=== PATIENT | female | born 1950 | race Caucasian/White ===

== ENCOUNTER → 2020-02-03 09:32 | Outpatient (BNVA) | payer MEDICARE, OTHER, SELFPAY | PROVIDERS: PCP Internal Medicine; Visit Provider Surgery | DX: D05.12 Intraductal carcinoma in situ of left breast (principal); Z79.811 Long term (current) use of aromatase inhibitors; Z92.3 Personal history of irradiation | CPT/HCPCS: 99213 ==

== ENCOUNTER → 2020-02-09 07:44 | Outpatient (BNV) | payer MEDICARE, OTHER, SELFPAY | PROVIDERS: PCP Internal Medicine; Visit Provider Internal Medicine Medical Oncology | DX: D05.12 Intraductal carcinoma in situ of left breast (principal); M85.80 Other specified disorders of bone density and structure, unspecified site | CPT/HCPCS: 99204; 99213; 99214 ==

== ENCOUNTER 2020-05-03 09:13 | Outpatient (REF) | payer MEDICARE, OTHER, SELFPAY ==
--- NOTE | 2020-05-03 09:17 | MM_ITS ---
EXAMINATION: MM DIAGNOSTIC DIGITAL BREAST TOMOSYNTHESIS, BILATERAL CLINICAL INFORMATION: Due for yearly. Left lumpectomy 08/01/2018. COMPARISON: Mammography: 04/30/2019, 08/01/2018, 07/10/2018, 07/03/2018, 06/14/2017 TECHNIQUE: Digital breast tomosynthesis is performed in both the craniocaudal and mediolateral oblique views along with computer-aided detection (CAD). Synthesized 2D images are generated from the tomosynthesis. Additional magnification left CC and magnification left ML views are obtained. FINDINGS: The breasts are heterogeneously dense, which may obscure small masses (ACR BI-RADS breast composition Category c). Findings fibronodular parenchymal pattern is similar to prior studies. There is minor scarring mid upper outer left breast similar to prior postoperative exam. Neither breast shows interval mass or architectural abnormality or abnormal calcifications. There is biopsy clip marker right breast lower inner quadrant. No significant changes in the breast. Results are provided to the patient at time of visit by the technologist. MM/MM tomosynthesis diagnostic BI IMPRESSION: No significant changes from prior studies. ASSESSMENT: BI-RADS 2: Benign RECOMMENDATION: Annual bilateral mammography. This patient's information was entered into a reminder system with a target due date for their next mammogram.
== END 2020-05-03 09:14 | disposition home or self-care (01) ==
LOC: HO.MAMMO 09:13
PROVIDERS: PCP Internal Medicine; Visit Provider Surgery
DX: D05.12 Intraductal carcinoma in situ of left breast (principal)
CPT/HCPCS: 77062; 77066

== ENCOUNTER 2020-10-05 06:28 | Day surgery (SDC) | payer MEDICARE, OTHER, SELFPAY ==
[2020-09-28 15:15] VITALS: BMI 36.6
--- NOTE | 2020-10-04 09:08 | HO.ANESPROP2 ---
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 (Acute) Past Medical History Medical History Arthritis of both knees Asthma Ductal carcinoma in situ of left breast Hx of skin cancer, basal cell Hypertension Family History Family History Father History of melanoma Mother History of colon cancer Paternal Grandfather History of diabetes mellitus Maternal Grandfather History of diabetes mellitus Surgical History Surgical History History of basal cell carcinoma (BCC) excision (~2009) History of breast biopsy (~2016) History of colonoscopy History of laparoscopic appendectomy (~1996) History of lumpectomy of left breast (~08/01/18) History of sinus surgery (~1989) Social History Social History Are you a primary care management associate to a significant other at home: No Do you presently have visiting nurse or other home services: No Alcohol intake: current Alcohol intake frequency: holidays/special occasions only Patient Tobacco Use Status: Never used Tobacco Use of substances other than those prescribed or required for medical reasons: No Have you been hit, kicked, punched, or otherwise hurt by someone within the past year? If so, by whom?: No Are you DNR?: No Advance Directives: No Advance Directives Information Provided: No Advance Directives on File: No Recently lost weight without trying: No How much weight loss: 14-23 pounds Nutrition Risks: No Nutritional Risk Meds Allergies Allergy/AdvReac Type Severity Reaction Status Date / Time codeine [CODEINE] Allergy Unknown PROJECTILE Verified 10/05/20 07:26 VOMITING latex [LATEX] Allergy Unknown RASH Verified 10/05/20 07:26 SEASONAL ALLERGIES Allergy Unknown WHEEZING, Uncoded 10/05/20 07:26 NASAL CONGESTION Home Medications Medication Instructions Recorded Confirmed Last Taken Type cholecalciferol (vitamin D3) 50 50 mcg PO DAILY 02/03/20 09/28/20 Unknown History mcg (2,000 unit) capsule flaxseed oil 1,000 mg capsule 1,000 mg PO DAILY 02/03/20 09/28/20 Unknown History fluticasone propionate 220 1 puff INHALATION BID 02/03/20 09/28/20 Unknown History mcg/actuation HFA aerosol inhaler ipratropium 20 mcg-albuterol 100 2 puff INHALATION BID 02/03/20 09/28/20 Unknown History mcg/actuation mist for inhalation potassium iodide 65 mg tablet 0.22 mg PO DAILY 02/03/20 09/28/20 Unknown History vitamin E 200 unit capsule 400 unit PO DAILY cap 02/03/20 09/28/20 Unknown History Osteo Bi-Flex Triple Strength 2 tab PO DAILY 02/09/20 09/28/20 Unknown History acetaminophen 1,300 mg PO BEDTIME 02/09/20 09/28/20 Unknown History multivitamin 1 tab PO DAILY 02/09/20 09/28/20 Unknown History cetirizine 10 mg PO DAILY 09/28/20 09/28/20 Unknown History lisinopril 1 tab PO DAILY 09/28/20 09/28/20 Unknown History turmeric root extract 1,000 mg PO DAILY 09/28/20 09/28/20 Unknown History Exam Exam Date and Time: October 04, 2020 0908 Height,Weight and Vital Signs: Height 5 ft 5 in Weight 99.79 kg Assessment and Plan Assessment Anesthesia Assessment: Chart Reviewed
[2020-10-05 06:48] VITALS: BMI 31.6
[2020-10-05 06:52] VITALS: BP 149/85; PULSE 79; RESP 18; TEMP 36.1; O2SAT 96
[2020-10-05] MEDS: Lactated Ringers 1,000 ML 100 ML IVCONT (07:02)
--- NOTE | 2020-10-05 07:16 | P.CONAN_ITS ---
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) Past Medical History Medical History Arthritis of both knees Asthma Ductal carcinoma in situ of left breast Hx of skin cancer, basal cell Hypertension Family History Family History Father History of melanoma Mother History of colon cancer Paternal Grandfather History of diabetes mellitus Maternal Grandfather History of diabetes mellitus Surgical History Surgical History History of basal cell carcinoma (BCC) excision (~2009) History of breast biopsy (~2016) History of colonoscopy History of laparoscopic appendectomy (~1996) History of lumpectomy of left breast (~08/01/18) History of sinus surgery (~1989) Social History Social History Are you a primary insurance healthcare consultant to a significant other at home: No Do you presently have visiting nurse or other home services: No Alcohol intake: current Alcohol intake frequency: holidays/special occasions only Patient Tobacco Use Status: Never used Tobacco Use of substances other than those prescribed or required for medical reasons: No Have you been hit, kicked, punched, or otherwise hurt by someone within the past year? If so, by whom?: No Are you DNR?: No Advance Directives: No Advance Directives Information Provided: No Advance Directives on File: No Recently lost weight without trying: No How much weight loss: 14-23 pounds Nutrition Risks: No Nutritional Risk Meds Allergies Allergy/AdvReac Type Severity Reaction Status Date / Time codeine [CODEINE] Allergy Unknown PROJECTILE Unverified 09/28/20 15:20 VOMITING latex [LATEX] Allergy Unknown RASH Unverified 09/28/20 15:20 SEASONAL ALLERGIES Allergy Unknown WHEEZING, Uncoded 09/28/20 15:20 NASAL CONGESTION Active Medications: Current Medications Generic Name Dose Route Start Last Admin Trade Name Freq PRN Reason Stop Dose Admin Albuterol Sulfate 2.5 mg 10/05/20 05:53 Albuterol Sulfate (0.083%) 2.5 Mg/3 Ml Vial.Neb INHALE ONCE PRN Shortness of Breath/Wheezing Lactated Ringer's 1,000 mls @ 100 mls/hr 10/05/20 06:00 10/05/20 07:02 Lr IVCONT 100 mls/hr .Q10H OLIVIA Administration Home Medications Medication Instructions Recorded Confirmed Last Taken Type cholecalciferol (vitamin D3) 50 50 mcg PO DAILY 02/03/20 09/28/20 Unknown History mcg (2,000 unit) capsule flaxseed oil 1,000 mg capsule 1,000 mg PO DAILY 02/03/20 09/28/20 Unknown History fluticasone propionate 220 1 puff INHALATION BID 02/03/20 09/28/20 Unknown History mcg/actuation HFA aerosol inhaler ipratropium 20 mcg-albuterol 100 2 puff INHALATION BID 02/03/20 09/28/20 Unknown History mcg/actuation mist for inhalation potassium iodide 65 mg tablet 0.22 mg PO DAILY 02/03/20 09/28/20 Unknown History vitamin E 200 unit capsule 400 unit PO DAILY cap 02/03/20 09/28/20 Unknown History Osteo Bi-Flex Triple Strength 2 tab PO DAILY 02/09/20 09/28/20 Unknown History acetaminophen 1,300 mg PO BEDTIME 02/09/20 09/28/20 Unknown History multivitamin 1 tab PO DAILY 02/09/20 09/28/20 Unknown History cetirizine 10 mg PO DAILY 09/28/20 09/28/20 Unknown History lisinopril 1 tab PO DAILY 09/28/20 09/28/20 Unknown History turmeric root extract 1,000 mg PO DAILY 09/28/20 09/28/20 Unknown History Exam Exam Date and Time: October 05, 2020 0716 Height,Weight and Vital Signs: Height 5 ft 5 in Weight 86.183 kg Last Vital Signs Temp 97.0 F 10/05/20 06:52 Pulse 79 10/05/20 06:52 Resp 18 10/05/20 06:52 BP 149/85 H 10/05/20 06:52 Pulse Ox 96 10/05/20 06:52 Airway Mallampati Class: II TM Dist: >3cm Neck ROM: Full Heart: RRR Lungs: CTa
--- NOTE | 2020-10-05 07:22 | MHC.SHP ---
Pre-Procedural Eval Section B Chief Complaint: screening Details of Present Illness: See H&P no changes Relevant Family History (Specify if Yes): Yes Relevant Social History: None Present Medications: see Short Stay Collaborative assessment Medical History: No relevant PMH History of Previous Operations: No relevant previous surgery Allergies: Allergies Allergy/AdvReac Type Severity Reaction Status Date / Time codeine [CODEINE] Allergy Unknown PROJECTILE Unverified 09/28/20 15:20 VOMITING latex [LATEX] Allergy Unknown RASH Unverified 09/28/20 15:20 SEASONAL ALLERGIES Allergy Unknown WHEEZING, Uncoded 09/28/20 15:20 NASAL CONGESTION Review of Systems Sugical H&P ROS: Negative: Constitution, Cardiovascular, Respiratory, Neurological, Psychiatric, Hem-Onc, Allergic/Immunologic, Gastrointestinal, Genitourinary, Musculoskeletal, Integumentary, Endocrine and Eyes/Ears/Nose/Throat Exam Surgical H&P Exam: Normal: HEENT, Normal: Heart, Normal: Lungs, Normal: Extremities, Normal: Abdomen, Normal: Skin and Normal: Neurological Plan Diagnosis/Plan: Unchanged I have reviewed the history and physical and performed a pertinent physical examination on my patient. No changes have occurred unless specified.
--- NOTE | 2020-10-05 07:52 | P.BOP_ITS ---
Brief Operative Note Date of Service: 10/05/20 Pre-op diagnosis: screening Post-op diagnosis: same Procedure: colonosocpy Surgeon: Ritchie Mcknight Was an Director Of Physical Security used for this Procedure?: No Estimated blood loss (mL): 0 Pathology: none sent Condition: stable Disposition: PACU
[2020-10-05 07:55] VITALS: BP 86/47; PULSE 64; RESP 16; TEMP 36; O2SAT 99
[2020-10-05 08:02] VITALS: BP 107/66
[2020-10-05 08:08] VITALS: BP 115/70; PULSE 65; RESP 15; TEMP 36; O2SAT 97
--- NOTE | 2020-10-05 08:33 | OP_ITS ---
SURGEON: Ritchie Mcknight MD INDICATIONS: Colon cancer screening and family history of colon cancer. PREOPERATIVE DIAGNOSIS: POSTOPERATIVE DIAGNOSIS: PROCEDURE PERFORMED: Colonoscopy to the terminal ileum. ESTIMATED BLOOD LOSS: COMPLICATIONS: ANESTHESIA: Monitored anesthesia care. ASSISTANTS: SPECIMENS: DESCRIPTION OF PROCEDURE: History and physical performed. The risks and benefits of the procedure were explained to the patient, and informed consent was obtained. The patient was placed in the left lateral decubitus position. A digital rectal exam was performed and it was found to be normal. The Olympus pediatric video colonoscope was introduced into the rectum and advanced to the cecum without difficulty. The cecum was identified by transillumination, palpation, and identification of ileocecal valve. Examination was performed. The scope was removed. She tolerated the tolerated the procedure well and returned to the recovery area in stable condition. FINDINGS: The terminal ileum was examined and it appeared normal. The visualized colonic mucosa was within normal limits without evidence of masses or ulcers. No polyps were identified. The quality of the prep was good. Retroflexed examination showed some hypertrophic anal papillae. IMPRESSION: Normal colonoscopy. RECOMMENDATIONS: 1. Follow up as needed. 2. Repeat colonoscopy is recommended in 5 years because of family history. MD FOZIA Tucker/HAYES / [id number]
--- NOTE | 2020-10-05 11:51 | HO.POSTANES ---
Post Anesthesia Evaluation Post Anesthesia Evaluation Vital Signs: Vital Signs Temp Pulse Resp BP Pulse Ox 10/05/20 08:08 96.8 F 65 15 115/70 97 10/05/20 08:02 107/66 10/05/20 07:55 96.8 F 64 16 86/47 L 99 10/05/20 06:52 97.0 F 79 18 149/85 H 96 Anesthesia: Monitored Mental Status: Awake Pain Control: Satisfactory Nausea/Vomiting: None Hydration: Adequate
== END 2020-10-05 08:40 | disposition home or self-care (01) ==
PROVIDERS: PCP Internal Medicine; Visit Provider Internal Medicine Gastroenterology
PROC: 0DJD8ZZ Inspection of Lower Intestinal Tract, Via Natural or Artificial Opening Endoscopic (ICD-10-PCS; CPT 45378; principal; 2020-10-05 07:30)
DX: Z12.11 Encounter for screening for malignant neoplasm of colon (principal); Z80.0 Family history of malignant neoplasm of digestive organs; K62.89 Other specified diseases of anus and rectum; I10 Essential (primary) hypertension; J45.909 Unspecified asthma, uncomplicated; D05.12 Intraductal carcinoma in situ of left breast; Z79.811 Long term (current) use of aromatase inhibitors; Z79.899 Other long term (current) drug therapy; Z79.51 Long term (current) use of inhaled steroids; Z85.828 Personal history of other malignant neoplasm of skin
CPT/HCPCS: G0105

== ENCOUNTER → 2021-02-11 11:05 | Outpatient (BNVA) | payer MEDICARE, OTHER, SELFPAY | PROVIDERS: PCP Internal Medicine; Referring Provider Internal Medicine; Visit Provider Surgery | DX: D05.12 Intraductal carcinoma in situ of left breast (principal) | CPT/HCPCS: 99212 ==

== ENCOUNTER 2021-05-04 09:14 | Outpatient (REF) | payer MEDICARE, OTHER, SELFPAY ==
--- NOTE | ~2021-05-04 | MM_ITS ---
EXAMINATION: BONE DENSITOMETRY CLINICAL INDICATION: Osteopenia. On letrozole. COMPARISON: Previous BD dated 01/14/2019 and baseline BD dated 05/11/2006. TECHNIQUE: Using a Hepre[employer] DXA System (software version: 13.1) manufactured by [employer], dual-energy x-ray absorptiometry was performed of the lumbar spine and left hip. The images are of good technical quality. Summary results are attached. FINDINGS: AP SPINE L1-L4: Current: BMD 1.240 g/cm2, Z-score 2.1, T-score 0.5, normal, 3.0% decrease from previous, 1.6% decrease from baseline (<5% change is not significant). Prior: BMD 1.279 g/cm2. Baseline: BMD 1.260 g/cm2. LEFT FEMUR, NECK: Current: BMD 0.745 g/cm2, Z-score -0.5, T-score -2.1, osteopenia. Prior: BMD 0.797 g/cm2. Baseline: BMD 0.882 g/cm2. LEFT FEMUR, TOTAL: Current: BMD 0.906 g/cm2, Z-score 0.5, T-score -0.8, normal, 5.5% decrease from previous, 12.0% decrease from baseline (<5% change is not significant). Prior: BMD 0.959 g/cm2. Baseline: BMD 1.030 g/cm2. IDENTIFIED RISK FACTORS: Menopause. HISTORY OF FRACTURE: None listed. MEDICATIONS: Calcium supplements or multivitamin, vitamin D, ERT/SERMS. MM/XR DEXA axial skeleton IMPRESSION: 1. DIAGNOSIS: Osteopenia based on the lowest T-score value of -2.1 in the femoral neck applying World Health Organization criteria. 2. 10-YEAR FRACTURE RISK PREDICTION, FRAX: Major osteoporotic fracture (clinical spine, forearm, hip or shoulder) 12.3%. Hip fracture 2.4%. 3. Treatment Recommendations: NOF guidelines recommend consideration for treatment in postmenopausal women and men age 50 and older presenting with the following: -A hip or vertebral (clinical or morphometric) fracture. -T-score less than or equal to -2.5 at the femoral neck or spine after appropriate evaluation to exclude secondary causes. -Low bone mass at the hip or spine and a 10-year fracture probability by FRAX of greater than or equal to 3% for hip fracture or greater than or equal to 20% for major osteoporotic fracture based on the [place] adapted WHO algorithm. 4. Other Recommendations: All treatment decisions require clinical judgment and consideration of individual patient factors, including patient preferences, comorbidities, previous drug use, risk factors not captured in the FRAX model (e.g. frailty, falls, vitamin D deficiency, increased bone turnover, interval significant decline in bone density) and possible under or overestimation of fracture risk by FRAX. Additional medical evaluation for secondary cause of low bone mineral density may be appropriate. FUTURE SCAN RECOMMENDATION: People with diagnosed cases of osteoporosis or at high risk for fracture should have regular bone mineral density tests. For patients eligible for Medicare, routine testing is allowed once every 2 years. The testing frequency can be increased to one year for patients who have rapidly progressing disease, those who are receiving or discontinuing medical therapy to restore bone mass, or have additional risk factors.
--- NOTE | ~2021-05-04 | MM_ITS ---
EXAMINATION: MM DIAGNOSTIC DIGITAL BREAST TOMOSYNTHESIS, BILATERAL CLINICAL INFORMATION: Left lumpectomy 08/01/2018 complex nodule (circumscribed nests of carcinoma; ADH; Flat epithelial atypia; PASH; clear margins). Prior benign right stereotactic biopsy 06/01/2016. Due for yearly. COMPARISON: Mammography: 05/03/2020, 04/30/2019, 08/01/2018, 07/10/2018, 07/03/2018, 06/14/2017 TECHNIQUE: Digital breast tomosynthesis is performed in both the craniocaudal and mediolateral oblique views along with computer-aided detection (CAD). Synthesized 2D images are generated from the tomosynthesis. Additional left magnification CC and left magnification ML views are obtained. FINDINGS: The breasts are heterogeneously dense, which may obscure small masses (ACR BI-RADS breast composition Category c). There are no significant masses, abnormal calcifications, or other abnormalities. There is fine fibronodular parenchymal pattern similar to prior studies. Minor scarring mid upper outer left breast is consistent with the lumpectomy. There is biopsy clip marker again seen mid lower inner right breast. There are no significant changes. Results are provided to the patient at time of visit by the technologist. MM/MM tomosynthesis diagnostic BI IMPRESSION: No mammographic evidence of malignancy. Post therapy changes left breast. ASSESSMENT: BI-RADS 2: Benign RECOMMENDATION: Annual bilateral mammography. This patient's information was entered into a reminder system with a target due date for their next mammogram.
== END 2021-05-04 09:15 | disposition home or self-care (01) ==
LOC: HO.MAMMO 09:14
PROVIDERS: Absent Provider Surgery; PCP Internal Medicine; Visit Provider Internal Medicine Medical Oncology
DX: Z13.820 Encounter for screening for osteoporosis (principal); M85.80 Other specified disorders of bone density and structure, unspecified site; Z78.0 Asymptomatic menopausal state; D05.12 Intraductal carcinoma in situ of left breast; Z79.811 Long term (current) use of aromatase inhibitors; Z79.899 Other long term (current) drug therapy
CPT/HCPCS: 77062; 77066; 77080

== ENCOUNTER 2021-08-22 06:43 | Outpatient (REF) | payer MEDICARE, OTHER, SELFPAY ==
[2021-08-22 07:48] LABS: Cholesterol 202 mg/dL; HDL Cholesterol 72 mg/dL; LDL Cholesterol Calculated 117 mg/dl; Triglycerides 68 mg/dL
== END 2021-08-22 06:44 | disposition home or self-care (01) ==
LOC: HO.LAB 06:43
PROVIDERS: PCP Internal Medicine; Visit Provider Internal Medicine
DX: I10 Essential (primary) hypertension (principal); J45.909 Unspecified asthma, uncomplicated; R25.2 Cramp and spasm
CPT/HCPCS: 36415; 80061

== ENCOUNTER 2022-01-03 09:19 | Emergency (ER) | payer MEDICARE, OTHER, SELFPAY ==
--- NOTE | ~2022-01-03 | XR_ITS ---
EXAMINATION: XR FOOT, RIGHT CLINICAL INFORMATION: Twisted foot with pain COMPARISON: 11/01/2008 TECHNIQUE: AP, lateral, and oblique views of the right foot. FINDINGS: Osseous alignment is anatomic. There is subtle transverse linear lucency at the base of the fifth metatarsal, suspicious for nondisplaced fracture and adjacent soft tissue swelling. Remaining osseous structures appear intact. Plantar calcaneal spur is noted. XR/XR foot RT 2V IMPRESSION: Nondisplaced transverse fracture at the base of the fifth metatarsal.
[2022-01-03 09:25] VITALS: BP 170/80; PULSE 71; RESP 18; TEMP 36.6; O2SAT 99; BMI 23.1
--- NOTE | 2022-01-03 09:48 | ED.LOWEXIN ---
HPI - Extremity Injury (Lower) General Chief Complaint: Extremity Injury, Lower Stated Complaint: fall 01/03/22 Time Seen by Provider: 01/03/22 09:43 Source: patient Mode of arrival: ambulatory Limitations: no limitations History of Present Illness HPI Narrative: 71 yo female with history of fracture to the right 5th metatarsal in 2008 treated nonoperatively presents with right foot pain after an injury this morning. Patient reports she was sitting down and her right foot fell asleep. When she stood up she twisted the right foot. Since then she has had pain and pain with weight bearing to the right foot. Sensation is now normal. Related Data Home Medications Medication Instructions Recorded Confirmed cholecalciferol (vitamin D3) 50 50 mcg PO DAILY 02/03/20 08/08/21 mcg (2,000 unit) capsule flaxseed oil 1,000 mg capsule 1,000 mg PO DAILY 02/03/20 08/08/21 fluticasone propionate 220 1 puff inhalation BID 02/03/20 08/08/21 mcg/actuation HFA aerosol inhaler (Flovent HFA) ipratropium 20 mcg-albuterol 100 2 puff inhalation BID 02/03/20 08/08/21 mcg/actuation mist for inhalation (Combivent Respimat) potassium iodide 65 mg tablet 0.22 mg PO DAILY 02/03/20 08/08/21 vitamin E 200 unit capsule 400 unit PO DAILY 02/03/20 08/08/21 Osteo Bi-Flex Triple Strength 2 tab PO DAILY 02/09/20 08/08/21 acetaminophen 1,300 mg PO BEDTIME 02/09/20 08/08/21 multivitamin 1 tab PO DAILY 02/09/20 08/08/21 cetirizine 10 mg tablet 10 mg PO DAILY 09/28/20 08/08/21 lisinopril 5 mg tablet 1 tab PO DAILY 09/28/20 08/08/21 turmeric root extract 500 mg 1,000 mg PO DAILY 09/28/20 08/08/21 capsule Previous Rx's Medication Instructions Recorded letrozole 2.5 mg tablet 2.5 mg PO DAILY #90 tabs 10/31/21 off loading boot (Aircast off #1 ea 01/03/22 loading boot) Allergies Allergy/AdvReac Type Severity Reaction Status Date / Time codeine [CODEINE] Allergy Unknown PROJECTILE Verified 08/08/21 09:09 VOMITING latex [LATEX] Allergy Unknown RASH Verified 08/08/21 09:09 SEASONAL ALLERGIES Allergy Unknown WHEEZING, Uncoded 08/08/21 09:09 NASAL CONGESTION Review of Systems Review of Systems: Yes all other systems are reviewed and are negative Constitutional: Constitutional: Reports no additional constitutional complaints, Denies fever(s) and Denies weakness ENT: Reports system reviewed and no additional complaints, except as documented Cardiovascular: Cardiovascular: Reports no additional cardiovascular complaints and Denies acrocyanosis Respiratory: Respiratory: Reports no additional respiratory complaints and Denies cough Gastrointestinal: Gastrointestinal: Reports no additional gastrointestinal complaints, Denies nausea and Denies vomiting Genitourinary: Genitourinary: Reports no additional female genitourinary complaints Musculoskeletal: Musculoskeletal: Reports no additional musculoskeletal complaints, Reports arthralgias, Reports joint swelling, Denies numbness and Denies tingling Integumentary/Breasts: Skin/Breast: Reports system reviewed and no additional complaints, except as docu and Denies rash Neurologic: Reports system reviewed and no additional complaints, except as documented, Denies numbness, Denies tingling and Denies weakness [facility] Past Medical History Attestation statement: The following information was validated with the patient. Source: old records reviewed and nursing notes reviewed Medical History Arthritis of both knees Asthma Ductal carcinoma in situ of left breast Hx of skin cancer, basal cell Hypertension Surgical History History of basal cell carcinoma (BCC) excision (~2009) History of breast biopsy (~2016) History of colonoscopy History of laparoscopic appendectomy (~1996) History of lumpectomy of left breast (~08/01/18) History of sinus surgery (~1989) Family History Family History Father History of melanoma Mother History of colon cancer Paternal Grandfather History of diabetes mellitus Maternal Grandfather History of diabetes mellitus Social History Social History Household Members: Family Housing: House Are you a primary veterinarian laboratory animal care to a significant other at home: No Do you presently have visiting nurse or other home services: No Alcohol intake: current Alcohol intake frequency: holidays/special occasions only Patient Tobacco Use Status: Never used Tobacco Advance Directives: Yes Advance Directives Information Provided: No Advance Directives on File: No service: Yes Current occupational status: employed and retired Physical Exam Vital Signs: Vital Signs: Last Vital Signs Temp 98 F 01/03/22 09:25 Pulse 71 01/03/22 09:25 Resp 18 01/03/22 09:25 BP 170/80 H 01/03/22 09:25 Pulse Ox 99 01/03/22 09:25 O2 Del Method 01/03/22 09:25 BMI result Body Mass Index 23.1 Const: General: cooperative, healthy appearing, comfortable and no acute distress Orientation/consciousness: patient oriented x3 Limitations: no limitations HEENT: Head: Yes normal to inspection Ears: hearing grossly normal bilaterally General nose exam: Normal external nose present Face and sinus: Yes normal facial exam Mouth: Normal oral and palatal mucosa present Throat: Yes posterior oropharynx normal Eyes: General: appearance normal, both eyes and all related structures Pupils: Equal, round and reactive pupils present Neck: Neck: Yes normal visual inspection Chest: Chest palpation & inspection: normal inspection of the chest Resp: Effort & Inspection: normal respiratory effort Auscultation: clear to auscultation bilaterally Cardio: Rate: regular rate Rhythm: regular rhythm Peripheral pulses: Peripheral pulses 2+ throughout GI: Inspection: Yes normal to inspection Palpation (GI): Soft to palpation and nontender Auscultation: normal bowel sounds Back/Spine/Pelvis: Thoracic/Lumbar Spine: thoracic and lumbar spine normal to inspection Skin: General skin exam: no rashes or lesions noted Neuro: General: patient oriented x3, no focal motor deficits and normal sensation to monofilament Cranial nerves: Yes Equal, round and reactive pupils present Cognition (Neuro): normal cognition Gait exam (Neuro): Normal gait present Motor exam (neuro): 5/5 motor strength present throughout Extrem: Other: Swelling/ecchymosis over the base of the right 5th metatarsal FROM NV intact distally Ankle normal Course Course Course Narrative: X-rays show IMPRESSION: Nondisplaced transverse fracture at the base of the fifth metatarsal. Spoke to orthopedics distance education coordinator (Dulce Maria RODRIGUEZ). Recommended ortho walking boot with WBAT. No orthopedic boot available in ED. Will give RX. Reviewed RICE. Reviewed worrisome signs.symptoms with patient and when to return to ED. Comfortable with discharge home. MDM - Extremity Injury (Lower) MDM Narrative Medical decision making narrative: Right foot pain after injury. Will check x-rays Medical Records Attestation: I reviewed the patient's medical records. Lab Data Attestation: I reviewed the patient's lab results. Imaging Data foot xray: Attestation: I personally reviewed and interpreted this imaging study as follows: Radiologist's impression: Launch?Image [address] [address] XRay Report Signed Patient: Taryn Tompkins MR#: [id number] : 1950 Acct:[id number] Age/Sex: 71 / F ADM Date: 01/03/22 Loc: HO.ED Attending Dr: Ordering Physician: Vinnie Chino MD Date of Service: 01/03/22 Procedure(s): XR foot RT 2V Accession Number(s): [id number] cc: Vinnie Chino MD~ EXAMINATION: XR FOOT, RIGHT CLINICAL INFORMATION: Twisted foot with pain? COMPARISON: 11/01/2008? TECHNIQUE: AP, lateral, and oblique views of the right foot. FINDINGS: Osseous alignment is anatomic. There is subtle transverse linear lucency at the base of the fifth metatarsal, suspicious for nondisplaced fracture and adjacent soft tissue swelling. Remaining osseous structures appear intact. Plantar calcaneal spur is noted.? XR/XR foot RT 2V IMPRESSION: Nondisplaced transverse fracture at the base of the fifth metatarsal. Discharge Plan Discharge Clinical Impression: Foot fracture, right Patient Disposition: Home, Self-Care Instructions: Foot Fracture in Adults (ED) Additional Instructions: Walking boot and weight bearing as tolerated Elevate, ice Take motrin or tylenol as needed for pain Call orthopedics for a follow-up appointment Prescriptions: New (DME) Aircast off loading boot Kit See Rx Instructions .Route Qty: 1 0RF Rx Instructions: As directed No Action letrozole 2.5 mg Tablet 2.5 mg PO DAILY Qty: 90 3RF Osteo Bi-Flex Triple Strength 2 tab PO DAILY acetaminophen 650 mg tablet 1,300 mg PO BEDTIME multivitamin Tablet 1 tab PO DAILY cetirizine 10 mg Tablet 10 mg PO DAILY lisinopril 5 mg tablet 1 tab PO DAILY turmeric root extract 500 mg Capsule 1,000 mg PO DAILY potassium iodide 65 mg tablet 0.22 mg PO DAILY Flovent HFA 220 mcg/actuation HFA aerosol inhaler 1 puff inhalation BID Combivent Respimat 20-100 mcg/actuation mist 2 puff inhalation BID cholecalciferol (vitamin D3) 50 mcg (2,000 unit) capsule 50 mcg PO DAILY vitamin E 200 unit capsule 400 unit PO DAILY flaxseed oil 1,000 mg capsule 1,000 mg PO DAILY Rx Instructions: administer with a meal Referrals: [facility] [place] [facility] [Provider Group] - 2 weeks Interventions: ED Discharge Assessment Last Done: 01/03/22 10:50 Discharge Date/Time: 01/03/22 10:51
== END 2022-01-03 10:51 | disposition home or self-care (01) ==
PROVIDERS: Emergency Provider Emergency Medicine; PCP Internal Medicine
DX: S92.901A Unspecified fracture of right foot, initial encounter for closed fracture (principal); X58.XXXA Exposure to other specified factors, initial encounter; Y93.9 Activity, unspecified; Y92.9 Unspecified place or not applicable; Y99.9 Unspecified external cause status; Z79.899 Other long term (current) drug therapy
CPT/HCPCS: 73620; 99283

== ENCOUNTER 2022-01-16 09:56 | Outpatient (REF) | payer MEDICARE, OTHER, SELFPAY ==
--- NOTE | ~2022-01-16 | XR_ITS ---
EXAMINATION: XR FOOT, RIGHT CLINICAL INFORMATION: Fracture COMPARISON: Previous x-ray 01/03/2022 TECHNIQUE: AP, lateral, and oblique views of the right foot. FINDINGS: There is a nondisplaced fracture of the base of the fifth metatarsal bone. This appears unchanged from 01/03/2022 exam. No other fracture is seen. Joint spaces are normal. There is a plantar calcaneal spur. XR/XR foot RT min 3V IMPRESSION: No change in the fracture of the base of the fifth metatarsal bone.
== END 2022-01-16 09:57 | disposition home or self-care (01) ==
LOC: HO.XRAY 09:56
PROVIDERS: PCP Internal Medicine; Visit Provider Internal Medicine
DX: S92.901D Unspecified fracture of right foot, subsequent encounter for fracture with routine healing (principal)
CPT/HCPCS: 73630

== ENCOUNTER → 2022-02-07 08:51 | Outpatient (BNVA) | payer MEDICARE, OTHER, SELFPAY | PROVIDERS: PCP Internal Medicine; Visit Provider Surgery | DX: D05.12 Intraductal carcinoma in situ of left breast (principal) | CPT/HCPCS: 99212 ==

== ENCOUNTER 2022-05-05 08:09 | Outpatient (REF) | payer MEDICARE, OTHER, SELFPAY ==
--- NOTE | ~2022-05-05 | MM_ITS ---
EXAMINATION: MM SCREENING DIGITAL BREAST TOMOSYNTHESIS, BILATERAL CLINICAL INFORMATION: Screening. Asymptomatic. Due for yearly. Left lumpectomy 08/01/2018 complex nodule (circumscribed nests of carcinoma; ADH; Flat epithelial atypia; PASH; clear margins). Prior benign right stereotactic biopsy 06/01/2016. COMPARISON: Mammography: 05/04/2021, 05/03/2020, 04/30/2019, 08/01/2018, 07/10/2018, 07/03/2018 TECHNIQUE: Digital breast tomosynthesis is performed in both the craniocaudal and mediolateral oblique views along with computer-aided detection (CAD). Synthesized 2D images are generated from the tomosynthesis. FINDINGS: The breasts are heterogeneously dense, which may obscure small masses (ACR BI-RADS breast composition Category c). There is a fine fibronodular parenchymal pattern similar to prior exams with no developing density or interval mass or architectural abnormality. The axilla and skin contours are unremarkable. There are scattered punctate and coarse benign calcifications again seen in both breasts. The left CC view shows tight group of calcifications central outer breast 6.5 cm from nipple. Calcifications are not clearly visualized on the MLO view. Given the prior history, patient will be recalled for additional characterization with magnification views. MM/MM tomosynthesis screening BI IMPRESSION: Left: -Punctate tightly grouped calcifications central outer breast on CC view, possibly dispersed on MLO view. Right: -No mammographic evidence of malignancy. ASSESSMENT: BI-RADS 0: Incomplete - Need Additional Imaging Evaluation RECOMMENDATION: 1. Additional views of the left breast (magnification CC, magnification ML). 2. Radiology department staff will contact the patient for additional imaging. This patient's information was entered into a reminder system with a target due date for their next mammogram.
== END 2022-05-05 08:10 | disposition home or self-care (01) ==
LOC: HO.MAMMO 08:09
PROVIDERS: PCP Internal Medicine; Visit Provider Internal Medicine
DX: Z12.31 Encounter for screening mammogram for malignant neoplasm of breast (principal)
CPT/HCPCS: 77063; 77067

== ENCOUNTER 2022-05-11 08:44 | Outpatient (REF) | payer MEDICARE, OTHER, SELFPAY ==
--- NOTE | ~2022-05-11 | MM_ITS ---
EXAMINATION: MM DIAGNOSTIC DIGITAL MAMMOGRAPHY, LEFT CLINICAL INFORMATION: Recall from screening for fine calcifications CC view central outer left breast mid depth. Prior left lumpectomy 08/01/2018 for a complex nodule (circumscribed nests of carcinoma; ADH; Flat epithelial atypia; PASH; clear margins). Status post radiation left breast. Prior benign contralateral right stereotactic biopsy 06/01/2016 (benign breast tissue with focally proliferative fibrocystic changes and microcalcifications). COMPARISON: Mammography: 05/05/2022, 05/04/2021, 05/03/2020, 04/30/2019 TECHNIQUE: Digital mammography is performed in the following views: Magnification CC, magnification ML x3. FINDINGS: The breasts are heterogeneously dense, which may obscure small masses (ACR BI-RADS breast composition Category c). The additional views demonstrate fine round calcifications upper outer left breast slightly increased in number from prior studies. No pleomorphic types. No layering milk of calcium. Results are discussed with the patient at time of visit. Management options discussed with patient. Given the past medical history, stereotactic sampling is suggested to confirm benignity. Results and recommendation called to medical assistant float (Margot) for Dr. Mattson on 05/11/2022. MM/MM added views LT IMPRESSION: Findings calcifications upper outer left breast slightly increased. Given the past medical history left breast cancer, stereotactic sampling is suggested to confirm benignity. ASSESSMENT: BI-RADS 4: Suspicious (subcategory 4A: Low suspicion for malignancy) RECOMMENDATION: Stereotactic sampling left breast calcifications. This patient's information was entered into a reminder system with a target due date for their next mammogram.
== END 2022-05-11 08:45 | disposition home or self-care (01) ==
LOC: HO.MAMMO 08:44
PROVIDERS: PCP Internal Medicine; Visit Provider Surgery
DX: R92.8 Other abnormal and inconclusive findings on diagnostic imaging of breast (principal)
CPT/HCPCS: 77065

== ENCOUNTER 2022-05-16 08:57 | Outpatient (REF) | payer MEDICARE, OTHER, SELFPAY ==
--- NOTE | ~2022-05-16 | MM_ITS ---
EXAMINATION: STEREOTACTIC TOMOSYNTHESIS-GUIDED VACUUM-ASSISTED BREAST BIOPSY, LEFT SPECIMEN RADIOGRAPH, LEFT POST PROCEDURE DIGITAL MAMMOGRAM, LEFT CLINICAL INFORMATION: Calcifications upper outer left breast. Prior history left lumpectomy 08/01/2018 complex nodule (circumscribed nests of carcinoma; ADH; Flat epithelial atypia; PASH; clear margins). COMPARISON: Mammography 05/05/2022, 05/11/2022. TECHNIQUE/PROCEDURE: Informed consent was obtained from the patient after discussion of the benefits, risks, and alternatives to biopsy today. Patient appeared to understand. Gave opportunity for questions. Patient signed consent form. BIOPSY TABLE: [employer] Affirm Prone Biopsy System. LESION: Fine calcifications mid upper left breast. LOCAL ANESTHESIA: 10 mL carbonated 1% lidocaine; 10 mL 1% lidocaine with epinephrine. DERMATOTOMY: Single skin mio dermatotomy performed. NEEDLE: LumiFoldiva 9-gauge vacuum assisted core biopsy device. APPROACH: Craniocaudal. TARGETING: Combination of digital breast tomosynthesis and stereotactic digital mammography used for targeting. CORES: 7. CLIP: [employer] T-shaped marker. SPECIMEN RADIOGRAPH: Specimen radiograph is taken in separate room using digital mammography. The index calcifications are in the excised cores. There are over 10 calcifications in the cores. POST PROCEDURE UNILATERAL DIGITAL MAMMOGRAM: The post biopsy mammogram is performed in separate room using separate digital mammography equipment from the biopsy procedure. CC and ML views are obtained. The breasts are heterogeneously dense, which may obscure small masses (breast composition category: c). The clip marker is in position. No gross hematoma. The patient tolerated the procedure well. No immediate complications. Home instructions reviewed with the patient. Final pathology results are pending. MM/MM stereotactic biopsy LT IMPRESSION: 1. Digital tomosynthesis-guided core biopsy left breast with clip placement. 2. Specimen radiograph taken and post procedure mammogram. There is satisfactory positioning of the biopsy clip. 3. Final pathology results pending. An addendum report will be issued.
[2022-05-16] MEDS: Sodium Bicarbonate 8.4% 50 MEQ/50 ML VIAL SUBCUT (10:53)
[2022-05-16] MEDS: Lidocaine HCl 1 % 20 ML VIAL 10 ML SUBCUT (10:54)
[2022-05-16] MEDS: Lidocaine HCl 1% PF/Epi 1:200,000 30 ML VIAL 10 ML SUBCUT (10:58)
== END 2022-05-16 08:58 | disposition home or self-care (01) ==
LOC: HO.MAMMO 08:57
PROVIDERS: PCP Internal Medicine; Visit Provider Surgery
DX: R92.8 Other abnormal and inconclusive findings on diagnostic imaging of breast (principal); D05.12 Intraductal carcinoma in situ of left breast
CPT/HCPCS: 19081; 88305; 99212; A4648

== ENCOUNTER 2022-11-17 07:47 | Outpatient (REF) | payer MEDICARE, OTHER, SELFPAY ==
--- NOTE | ~2022-11-17 | MM_ITS ---
EXAMINATION: MM DIAGNOSTIC DIGITAL BREAST TOMOSYNTHESIS, LEFT CLINICAL INFORMATION: Status post benign stereotactic biopsy of calcifications in the upper outer quadrant of the left breast. Patient's since for recommended short interval follow-up with magnification imaging of the left breast. The patient has a history of previous left breast cancer treated with lumpectomy. COMPARISON: Mammography: This study is compared to prior exams dating back to 2019. TECHNIQUE: Digital breast tomosynthesis is performed in both the craniocaudal and mediolateral oblique views along with computer-aided detection (CAD). Synthesized 2D images are generated from the tomosynthesis. FINDINGS: There are scattered areas of fibroglandular density (ACR BI-RADS breast composition Category b). There are no significant masses, abnormal calcifications, or other abnormalities. There is a tissue marker in the upper outer quadrant of the left breast. Few, benign, punctate calcifications remain in close proximity to the biopsy tissue marker after prior benign biopsy. Results are provided to the patient at time of visit by the technologist. MM/MM tomosynthesis diagnostic LT IMPRESSION: Status post benign stereotactic biopsy upper outer quadrant left breast. No suspicious findings in the left breast at the current time. ASSESSMENT: BI-RADS BI-RADS 2 - Benign Findings RECOMMENDATION: 1 year F/U The patient's next mammogram should be bilateral screening study in April 2023. This patient's information was entered into a reminder system with a target due date for their next mammogram.
== END 2022-11-17 07:48 | disposition home or self-care (01) ==
LOC: HO.MAMMO 07:47
PROVIDERS: PCP Internal Medicine; Visit Provider Surgery
DX: R92.8 Other abnormal and inconclusive findings on diagnostic imaging of breast (principal)
CPT/HCPCS: 77061; 77065

== ENCOUNTER → 2022-11-17 08:00 | Outpatient (BNV) | payer MEDICARE, OTHER, SELFPAY | PROVIDERS: PCP Internal Medicine; Visit Provider Radiology Diagnostic Radiology | DX: R92.1 Mammographic calcification found on diagnostic imaging of breast (principal) | CPT/HCPCS: 77065 ==

== ENCOUNTER 2023-02-06 08:48 | Outpatient (AMB) | payer MEDICARE, OTHER, SELFPAY ==
--- NOTE | 2023-02-06 08:49 | A.OFFVIS_ITS ---
Intake Vital Signs 3 02/06/23 08:56 Height 5 ft 4 in Weight 136 lb 10.986 oz BMI 23.5 BP 128/88 Blood Pressure Location Lt brachial Position Sitting Pulse 69 Pulse Oximetry (%) 99 Intake Visit Reasons: Yearly Breast Exam Intake Note: Patient is seen in office for yearly breast exam. Patient c/o: denies any concerns or changes since last visit Grocery Manager Required: No [employer]: [employer] Present Accompanied by: Self / Same As Patient Allergies codeine [CODEINE] Allergy (Unknown, Verified 02/06/23 08:55) PROJECTILE VOMITING latex [LATEX] Allergy (Unknown, Verified 02/06/23 08:55) RASH SEASONAL ALLERGIES Allergy (Unknown, Uncoded 02/06/23 08:55) WHEEZING, NASAL CONGESTION Medication List - Last Reconciled 02/06/23 by Macario Silverio MD [acetaminophen 1,300 mg PO BEDTIME] cetirizine 10 mg PO DAILY cholecalciferol (vitamin D3) 50 mcg PO DAILY flaxseed oil 1,000 mg PO DAILY fluticasone propionate 220 mcg/actuation (Flovent HFA) 1 puff inhalation BID ipratropium-albuterol 20-100 mcg/actuation (Combivent Respimat) 2 puffs inhalation BID letrozole 2.5 mg PO DAILY lisinopril 1 tab PO DAILY multivitamin 1 tab PO DAILY [Osteo Bi-Flex Triple Strength 2 tabs PO DAILY] potassium iodide 0.22 mg PO DAILY turmeric root extract 1,000 mg PO DAILY vitamin E 400 units PO DAILY HPI HPI Comments 2 History of Present Illness0 Details 72-year-old female patient returning for a follow-up examination after left breast cancer and a recent low suspicion mammogram which was repeated on 11/17/2022.? She has a previous history of left breast ductal carcinoma in situ and is status post left breast lumpectomy with needle localization on 08/01/2018.? 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 She tolerated the procedure well and subsequently underwent radiation therapy completed on 10/25/2018.? She continues on letrozole under direction of Dr. Hart.? She was diagnosed with osteopenia and started on Prolia. Her mammogram dated 05/05/2022 with follow-up images of 05/11/2022 revealed calcifications in the upper-outer left breast which seemed slightly increased from the previous mammogram last year. Given her previous history of DCIS, stereotactic sampling is suggested. She underwent stereotactic guided core biopsy on 05/16/2022. This revealed benign breast tissue with microcalcifications. No atypia or malignancy was identified. Six-month follow-up mammogram of the left breast was obtained on 11/17/2022 and revealed post biopsy changes but no significant sebaceous findings in the left breast (BI-RADS 2). She will be due for her annual mammogram which is scheduled for 05/11/2023. She feels well and denies any new breast symptoms. [facility] Medical History Arthritis of both knees Hx of skin cancer, basal cell Ductal carcinoma in situ of left breast Hypertension Asthma Surgical History History of lumpectomy of left breast (~08/01/18) History of breast biopsy (~2016) History of basal cell carcinoma (BCC) excision (~2009) History of colonoscopy History of laparoscopic appendectomy (~1996) History of sinus surgery (~1989) Family History Father History of melanoma Mother History of colon cancer Paternal Grandfather History of diabetes mellitus Maternal Grandfather History of diabetes mellitus Social History Household Members: Family Housing: House Are you a primary caregivers homecare to a significant other at home: No Do you presently have visiting nurse or other home services: No Alcohol intake: current Alcohol intake frequency: holidays/special occasions only Patient Tobacco Use Status: Never used Tobacco service: Yes Current occupational status: employed and retired Review of Systems Const Denies chills, Denies fever(s), Denies headache(s) and Denies poor appetite ENT Denies dizziness and Denies headache(s) Card Denies chest pain, Denies rapid heart rate, Denies palpitations and Denies slow heart rate Resp Denies chest congestion, Denies cough, Denies pain on inspiration and Denies wheezing Musc Denies numbness Skin/Breast Denies breast swelling, Denies breast pain, Denies breast mass, Denies change in pigmentation, Denies erythema and Denies rash Neuro Denies dizziness, Denies headache(s) and Denies numbness Endo Denies palpitations Efraín/Lymph Denies easy bleeding, Denies easy bruising and Denies lymphadenopathy Aller/Immun Denies wheezing Physical Exam Vital Signs: Last Vital Signs Pulse 69 02/06/23 08:56 BP 128/88 02/06/23 08:56 Pulse Ox 99 02/06/23 08:56 BMI result Body Mass Index 23.5 Const General: healthy appearing and well developed Nutritional Appearance: well nourished Orientation/consciousness: patient oriented x3 Limitations: no limitations HEENT Head: Yes normocephalic and Yes atraumatic Ears: hearing grossly normal bilaterally Eyes Sclerae: sclerae normal Neck Neck: Yes no lymphadenopathy, Yes trachea midline, Yes supple and Yes no JVD Chest Other: Left breast: No skin change, no nipple retraction, no nipple discharge, no palpable mass, no enlarged lymph nodes. Incision in the upper outer quadrant is clean, dry, and intact. There is mild thickening of the breast tissue from previous surgery and radiation therapy but no suspicious palpable mass. This is unchanged from her previous examination. Right breast: No skin change, no nipple retraction, no nipple discharge, no palpable mass, no enlarged lymph nodes Chest/axillae images: 2 1. Resp Effort & Inspection: normal respiratory effort, no cough and no respiratory distress Skin Other: Warm, dry, no rash Neuro General: patient oriented x3 Extrem General: Yes no clubbing, cyanosis or edema Assessment & Plan Assessment & Plan (1) Abnormal mammogram of left breast: Code(s): R92.8 - Other abnormal and inconclusive findings on diagnostic imaging of breast Plan 72-year-old female patient with a prior history of DCIS, status post left breast lumpectomy followed by radiation therapy and letrozole. Mammogram in April 2022 revealed a cluster of calcifications felt to be low suspicion for malignancy BI-RADS 4A and stereotactic guided core biopsy was recommended. This was performed on 05/16/2022 and revealed benign breast tissue, microcalcifications but no atypia or malignancy. She underwent a six-month follow-up mammogram on 11/17/2022 which again revealed no new suspicious findings (BI-RADS 2). She is scheduled for a bilateral mammogram on 05/11/2023. She will return for follow-up examination in 1 year, sooner p.r.n.. Coding Level of Care Code Est Pt Level 3 (47930) Diagnoses Abnormal mammogram of left breast R92.8
[2023-02-06 08:56] VITALS: BP 128/88; PULSE 69; O2SAT 99; BMI 23.5
== END 2023-02-06 09:11 | disposition home or self-care (01) ==
PROVIDERS: PCP Internal Medicine; Visit Provider Surgery
DX: R92.8 Other abnormal and inconclusive findings on diagnostic imaging of breast (principal)
CPT/HCPCS: 99213

== ENCOUNTER → 2023-02-06 08:48 | Outpatient (BNVA) | payer MEDICARE, OTHER, SELFPAY | PROVIDERS: PCP Internal Medicine; Visit Provider Surgery | DX: R92.8 Other abnormal and inconclusive findings on diagnostic imaging of breast (principal) | CPT/HCPCS: 99212 ==

== ENCOUNTER 2023-05-11 08:13 | Outpatient (REF) | payer MEDICARE, OTHER, SELFPAY ==
--- NOTE | ~2023-05-11 | MM_ITS ---
EXAMINATION: MM SCREENING DIGITAL BREAST TOMOSYNTHESIS, BILATERAL CLINICAL INFORMATION: Screening. Asymptomatic. History of treated left breast cancer. COMPARISON: Mammography: This study is compared with prior exams dating back to 2018. TECHNIQUE: Digital breast tomosynthesis is performed in both the craniocaudal and mediolateral oblique views along with computer-aided detection (CAD). Synthesized 2D images are generated from the tomosynthesis. FINDINGS: The breasts are heterogeneously dense, which may obscure small masses (ACR BI-RADS breast composition Category c). There are no significant masses, abnormal calcifications, or other abnormalities. There are tissue markers in each breast from prior benign percutaneous biopsies. There are architectural changes lateral aspect the left breast from prior excision. MM/MM tomosynthesis screening BI IMPRESSION: No mammographic evidence of malignancy. ASSESSMENT: BI-RADS BI-RADS 2 - Benign Findings RECOMMENDATION: Routine annual mammography screening. 1 year F/U This examination should not preclude the clinical evaluation of a suspicious palpable abnormality. This patient's information was entered into a reminder system with a target due date for their next mammogram.
--- NOTE | ~2023-05-11 | MM_ITS ---
EXAMINATION: BONE DENSITOMETRY CLINICAL INDICATION: Osteoporosis. COMPARISON: Previous BD dated 05/04/2021 and baseline BD dated 05/11/2006. TECHNIQUE: Using a [employer] DXA System (software version: 13.1) manufactured by [employer], dual-energy x-ray absorptiometry was performed of the lumbar spine and left hip. The images are of good technical quality. Summary results are attached. FINDINGS: LEFT FEMUR, NECK: Current: BMD 0.802 g/cm2, Z-score 0.1, T-score -1.7, osteopenia. Prior: BMD 0.745 g/cm2. Baseline: BMD 0.882 g/cm2. LEFT FEMUR, TOTAL: Current: BMD 0.884 g/cm2, Z-score 0.6, T-score -1.0, normal, 2.4% decrease from previous, 14.2% decrease from baseline (<5% change is not significant). Prior: BMD 0.906 g/cm2. Baseline: BMD 1.030 g/cm2. AP SPINE L1-L2 (excluding L3 and L4): The data of L1-L4 has been changed to exclude the L3 and L4 vertebral bodies, because degenerative sclerosis at these levels may cause overestimation of lumbar spine density. Current: BMD 1.189 g/cm2, Z-score 2.0, T-score 0.2, normal, 4.8% increase from previous, 2.1% decrease from baseline (<5% change is not significant). Prior: BMD 1.135 g/cm2. Baseline: BMD 1.215 g/cm2. IDENTIFIED RISK FACTORS: Height loss, menopause. HISTORY OF FRACTURE: None listed. MEDICATIONS: Calcium, vitamin D, Prolia. MM/XR DEXA axial skeleton IMPRESSION: 1. DIAGNOSIS: Osteopenia based on the lowest T-score value of -1.7 in the femoral neck applying World Health Organization criteria. 2. 10-YEAR FRACTURE RISK PREDICTION, FRAX: Not performed in this patient on estrogen or bone building treatments. 3. Treatment Recommendations: NOF guidelines recommend consideration for treatment in postmenopausal women and men age 50 and older presenting with the following: -A hip or vertebral (clinical or morphometric) fracture. -T-score less than or equal to -2.5 at the femoral neck or spine after appropriate evaluation to exclude secondary causes. -Low bone mass at the hip or spine and a 10-year fracture probability by FRAX of greater than or equal to 3% for hip fracture or greater than or equal to 20% for major osteoporotic fracture based on the [place] adapted WHO algorithm. 4. Other Recommendations: All treatment decisions require clinical judgment and consideration of individual patient factors, including patient preferences, comorbidities, previous drug use, risk factors not captured in the FRAX model (e.g. frailty, falls, vitamin D deficiency, increased bone turnover, interval significant decline in bone density) and possible under or overestimation of fracture risk by FRAX. Additional medical evaluation for secondary cause of low bone mineral density may be appropriate. FUTURE SCAN RECOMMENDATION: People with diagnosed cases of osteoporosis or at high risk for fracture should have regular bone mineral density tests. For patients eligible for Medicare, routine testing is allowed once every 2 years. The testing frequency can be increased to one year for patients who have rapidly progressing disease, those who are receiving or discontinuing medical therapy to restore bone mass, or have additional risk factors.
== END 2023-05-11 08:14 | disposition home or self-care (01) ==
LOC: HO.MAMMO 08:13
PROVIDERS: PCP Internal Medicine; Visit Provider Internal Medicine
DX: Z12.31 Encounter for screening mammogram for malignant neoplasm of breast (principal); Z13.820 Encounter for screening for osteoporosis; Z78.0 Asymptomatic menopausal state; M81.0 Age-related osteoporosis without current pathological fracture
CPT/HCPCS: 77063; 77067; 77080

== ENCOUNTER → 2023-05-11 08:45 | Outpatient (BNV) | payer MEDICARE, OTHER, SELFPAY | PROVIDERS: PCP Internal Medicine; Visit Provider Radiology Diagnostic Radiology | DX: Z12.31 Encounter for screening mammogram for malignant neoplasm of breast (principal) | CPT/HCPCS: 77063; 77067 ==

== ENCOUNTER 2023-07-24 10:26 | Outpatient (REF) | payer MEDICARE, OTHER, SELFPAY ==
--- NOTE | ~2023-07-24 | US_ITS ---
EXAMINATION: US VENOUS ULTRASOUND WITH DOPPLER LOWER EXTREMITY, LEFT CLINICAL INFORMATION: Left calf pain COMPARISON: None available. TECHNIQUE: Ultrasound of the deep veins is performed from the hip to the calf with compression sonography and color and pulse Doppler assessment. Spectral analysis with color-flow imaging is performed. FINDINGS: There is normal venous compression and respiratory variation and augmented flow. The visualized common femoral vein, superficial femoral vein, profunda femoral vein, popliteal vein, and the trifurcation region shows no evidence of deep venous thrombosis. Moderate joint effusion. US/US venous duplex LE LT IMPRESSION: No DVT demonstrated in the left lower extremity. Knee joint effusion.
== END 2023-07-24 10:27 | disposition home or self-care (01) ==
LOC: HO.US 10:26
PROVIDERS: PCP Internal Medicine; Visit Provider Internal Medicine
DX: M79.662 Pain in left lower leg (principal)
CPT/HCPCS: 93971

== ENCOUNTER 2023-07-26 06:17 | Outpatient (REF) | payer MEDICARE, OTHER, SELFPAY ==
[2023-07-26 06:35] LABS: MANUAL DIFF FLAG NO
[2023-07-26 08:10] LABS: Basophils Absolute Auto 0.1 X10*3/uL (0.0-0.2); Basophils Percent Auto 1.6 % (0-2); Eosinophils Absolute Auto 0.7 X10*3/uL (0.0-0.4); Eosinophils Percent Auto 10.8 % (0-4); Hematocrit 38.3 % (37.0-47.0); Hemoglobin 13.1 g/dl (12.0-16.0); Imm Gran Abs Auto 0.01 X10*3/uL (0.00-0.03); Imm Gran Pct Auto 0.2 % (0.0-0.4); Lymphocytes Absolute Auto 2.4 X10*3/uL (1.2-4.9); Mean Corpuscular HGB Conc 34.2 g/dl (31.0-35.0); Mean Corpuscular Hemoglobin 33.2 pg (27.0-33.0); Mean Corpuscular Volume 97.2 fL (80.0-98.0); Monocytes Absolute Auto 0.7 X10*3/uL (0.1-1.2); Monocytes Percent Auto 11.3 % (2-11); Neutrophils Absolute Auto 2.5 x10*3/uL (2.0-8.3); Neutrophils Percent Auto 39.1 % (45-73); Platelet Count 283 X10*3/uL (160-400); Red Blood Count 3.94 X10*6/uL (4.20-5.50); Red Cell Distribution Width 12.3 % (11.0-16.0); White Blood Count 6.4 X10*3/uL (4.8-10.8)
[2023-07-26 08:40] LABS: Alanine Aminotransferase 21 U/L (0-31); Albumin Level 4.2 g/dL (3.5-5.0); Alkaline Phosphatase 54 U/L (39-117); Anion Gap 12 (12-20); Aspartate Amino Transferase 23 U/L (5-31); Bilirubin Total 0.4 mg/dL (0.0-1.0); Blood Urea Nitrogen 18 mg/dL (9-16); Calcium 9.4 mg/dL (8.4-10.2); Carbon Dioxide 27 mmol/L (22-29); Chloride 102 mmol/L (96-108); Cholesterol 181 mg/dL (<200); Estimated Glomerular Filt Rate > 60; Glucose Fasting 92 mg/dL (60-99); HDL Cholesterol 76 mg/dL (>40); LDL Cholesterol Calculated 95 mg/dL (<100); Potassium 4.5 mmol/L (3.3-5.1); Sodium 136 mmol/L (135-145); Triglycerides 54 mg/dL (<150)
[2023-07-26 08:57] LABS: Vitamin D 25-OH Total 44.5 ng/mL (>30)
== END 2023-07-26 06:18 | disposition home or self-care (01) ==
LOC: HO.LAB 06:17
PROVIDERS: PCP Internal Medicine; Visit Provider Internal Medicine
DX: E78.00 Pure hypercholesterolemia, unspecified (principal); I10 Essential (primary) hypertension; N95.9 Unspecified menopausal and perimenopausal disorder
CPT/HCPCS: 36415; 80053; 80061; 82306; 85025

== ENCOUNTER 2023-12-14 09:33 | Inpatient (IN) | payer MEDICARE, OTHER, SELFPAY ==
[2023-12-14] VITALS (11 sets, daily range): BP systolic 106–168; BP diastolic 58–92; PULSE 71–93; RESP 15–20; TEMP 36.2–36.8; O2SAT 97–100; BMI 25.7
--- NOTE | ~2023-12-14 | XR_ITS ---
EXAMINATION: XR CHEST CLINICAL INFORMATION: Hip fracture. COMPARISON: Chest radiograph 09/11/2013. TECHNIQUE: Frontal view of the chest was obtained. FINDINGS: No focal consolidation, pleural effusion or pneumothorax. No significant contour abnormality of the cardiomediastinal silhouette. No displaced osseous fractures. XR/XR chest 1V IMPRESSION: 1. No acute cardiopulmonary findings. 2. No displaced osseous fractures. Electronically signed by: Geovanna Barahona MD 12/14/2023 10:28 AM EDT
--- NOTE | ~2023-12-14 | FL_ITS ---
EXAMINATION: FLUOROSCOPY GUIDANCE FOR NEEDLE PLACEMENT CLINICAL INFORMATION: Left intramedullary nail COMPARISON: Left hip x-ray on 12/14/2023 TECHNIQUE: Fluoroscopy performed in the operating room FINDINGS: Possibly performed during left proximal femoral fixation FLUOROSCOPY TIME: 1.3 minutes DOSE AREA PRODUCT: 0.557 mGy-m2 (milligray-meter squared) FL/FL guidance in OR IMPRESSION: Fluoroscopy performed by the orthopedics department. Please see operative report for additional information. Electronically signed by: Steff Archer MD 12/15/2023 11:02 AM EDT
--- NOTE | ~2023-12-14 | XR_ITS ---
EXAMINATION: XR HIP, LEFT CLINICAL INFORMATION: Fall, pain, fracture. COMPARISON: None available. TECHNIQUE: Two views of the left hip. FINDINGS: Comminuted, displaced and impacted left intertrochanteric femoral fracture. Surrounding soft tissue hematoma and effusion. No additional fractures. XR/XR hip LT w PEL1V IMPRESSION: Comminuted, displaced and impacted left intertrochanteric femoral fracture. Electronically signed by: Geovanna Barahona MD 12/14/2023 10:30 AM EDT
--- NOTE | 2023-12-14 09:40 | ED_ITS ---
HPI - Fall General Chief Complaint: Fall Stated Complaint: FALL THIS AM L HIP PAIN Time Seen by Provider: 12/14/23 09:48 Source: patient and EMS Mode of arrival: EMS Limitations: no limitations History of Present Illness HPI Narrative: Patient is a 73-year-old female who presents emergency department via EMS for evaluation after a fall this morning with resultant left hip pain. She was helping her daughter move a piece of furniture she was walking down the stairs, she slipped on the 3rd step up from the bottom resulting in a fall onto her left side. 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 Pain is localized here and does not radiate. Has no associated numbness or tingling. Leg is held in external rotation 2 point of most comfort, currently 2/10, reports severe pain with movement of the leg. Denies associated back pain. Reports no associated head strike or loss of consciousness. No headache, dizziness, lightheadedness, vision changes, neck pain, neck stiffness. Denies abdominal pain nausea vomiting, or chest pain or shortness of breath. Related Data Home Medications ?Medication ?Instructions ?Recorded ?Confirmed cholecalciferol (vitamin D3) 50 50 mcg PO DAILY 02/03/20 08/31/23 mcg (2,000 unit) capsule flaxseed oil 1,000 mg capsule 1,000 mg PO DAILY 02/03/20 08/31/23 potassium iodide 65 mg tablet 0.22 mg PO DAILY 02/03/20 08/31/23 vitamin E 200 unit capsule 400 unit PO DAILY 02/03/20 08/31/23 Osteo Bi-Flex Triple Strength 2 tab PO DAILY 02/09/20 08/31/23 acetaminophen 1,300 mg PO BEDTIME 02/09/20 08/31/23 multivitamin 1 tab PO DAILY 02/09/20 08/31/23 cetirizine 10 mg tablet 10 mg PO DAILY 09/28/20 08/31/23 lisinopril 5 mg tablet 5 mg PO DAILY 09/28/20 08/31/23 turmeric root extract 500 mg 1,000 mg PO DAILY 09/28/20 08/31/23 capsule fluticasone propionate 220 inhalation 12/14/23 mcg/actuation HFA aerosol inhaler ipratropium 20 mcg-albuterol 100 1 puff inhalation QID 12/14/23 mcg/actuation mist for inhalation (Combivent Respimat) Previous Rx's ?Medication ?Instructions ?Recorded letrozole 2.5 mg tablet 2.5 mg PO DAILY #90 tabs 10/25/22 Allergies Allergy/AdvReac Type Severity Reaction Status Date / Time codeine [CODEINE] Allergy Unknown PROJECTILE Verified 12/14/23 09:46 VOMITING latex [LATEX] Allergy Unknown RASH Verified 12/14/23 09:46 SEASONAL ALLERGIES Allergy Unknown WHEEZING, Uncoded 12/14/23 09:46 NASAL CONGESTION Review of Systems 2 Review of Systems: Yes all other systems are reviewed and are negative [facility] Past Medical History Attestation statement: The following information was validated with the patient. Source: old records reviewed Medical History Arthritis of both knees Hx of skin cancer, basal cell Ductal carcinoma in situ of left breast Hypertension Asthma Surgical History History of lumpectomy of left breast (~08/01/18) History of breast biopsy (~2016) History of basal cell carcinoma (BCC) excision (~2009) History of colonoscopy History of laparoscopic appendectomy (~1996) History of sinus surgery (~1989) Family History Family History Father History of melanoma Mother History of colon cancer Paternal Grandfather History of diabetes mellitus Maternal Grandfather History of diabetes mellitus Social History Social History Household Members: Family Housing: House Are you a primary client care coordinator to a significant other at home: No Do you presently have visiting nurse or other home services: No Alcohol intake: current Alcohol intake frequency: holidays/special occasions only Patient Tobacco Use Status: Never used Tobacco Smoked in Last 30 Days: No Use of substances other than those prescribed or required for medical reasons: No Advance Directives: No Advance Directives Information Provided: No service: Yes Current occupational status: employed and retired Physical Exam 2 Vital Signs: Vital Signs: Last Vital Signs Temp 97.7 F 12/14/23 09:42 Pulse 71 12/14/23 09:42 Resp 18 12/14/23 09:42 BP 168/83 H 12/14/23 09:42 Pulse Ox 99 12/14/23 09:42 O2 Del Method Room Air 12/14/23 09:42 BMI result Body Mass Index 30.0 Appearance: Alert.?Oriented to person, place and time. No acute distress.?Normal affect. Head: Normocephalic, atraumatic Eyes: Pupils equal, round and reactive to light.? EOMI. No nystagmus. ENT: Pharynx normal.??Dentition normal. Neck: Normal inspection.? Neck supple.??No midline cervical spine tenderness, step-offs, deformities. Full range of motion. CVS: Heart sounds normal. Normal heart rate and rhythm.? Pulses normal.?? Respiratory: No respiratory distress.? Lung sounds clear to auscultation bilaterally?? Abdomen: Soft and non-tender. Normoactive bowel sounds. Skin: Skin warm and dry.? Normal skin color.? Extremities: No lower extremity edema.? No calf ttp. 2+ DP/PT pulse bilaterally. Left lower extremity with hip in external rotation and shortened Neuro: Moves all extremities spontaneously. Sensation intact bilaterally. Medical Decision Making Medical Decision Making [facility] Narrative: Patient is a 73-year-old female with past medical history of Hypertension, DCIS, asthma, osteoporosis receiving treatment with Prolia who presents emergency department for evaluation of traumatic left hip pain after a mechanical fall. Extremity is held in external rotation and shortened. 2+ DP/PT pulse distally. Concern for fracture. XR being obtained. Took routine acetaminophen and naproxen earlier this morning, declines need for additional analgesic at this time. Differential Diagnosis Differential Diagnoses: The differential diagnosis associated with the presentation includes (Fracture, dislocation, contusion, sprain) Admission/Observation Consideration of admission/observation: Escalation of care including admission/observation considered Consult Healthcare Provider Management of the patient was discussed with: Hospitalist and Recycling Operator Orthopedics - Anand Rousseau PA : Patient to be admitted to medicine service, type and screen being obtained, plan for NPO after midnight. Lab Data [facility] Lab Attestation statement: I reviewed the patient's lab results. 12/14/23 10:22 12/14/23 10:22 Labs: Lab Results 12/14/23 Range/Units 10:22 WBC 9.0 (4.8-10.8) X10*3/uL RBC 4.15 L (4.20-5.50) X10*6/uL Hgb 13.4 (12.0-16.0) g/dl Hct 39.8 (37.0-47.0) % MCV 95.9 (80.0-98.0) fL MCH 32.3 (27.0-33.0) pg MCHC 33.7 (31.0-35.0) g/dl RDW 12.4 (11.0-16.0) % Plt Count 290 (160-400) X10*3/uL MPV 9.4 (9.4-12.3) fL Immature Gran % (Auto) 0.7 H (0.0-0.4) % Neut % (Auto) 64.6 (45-73) % Lymph % (Auto) 19.0 L (20-40) % Harding % (Auto) 9.5 (2-11) % Eos % (Auto) 5.0 H (0-4) % Baso % (Auto) 1.2 (0-2) % Lymph # (Auto) 1.7 (1.2-4.9) X10*3/uL Harding # (Auto) 0.9 (0.1-1.2) X10*3/uL Eos # (Auto) 0.5 H (0.0-0.4) X10*3/uL Baso # (Auto) 0.1 (0.0-0.2) X10*3/uL Abs Immat Gran (auto) 0.06 H (0.00-0.03) X10*3/uL Absolute Neuts (auto) 5.8 (2.0-8.3) x10*3/uL Absolute Nucleated RBC 0.000 (0.0-0.012) X10*3/uL Nucleated RBC % (auto) 0.0 (0.0-0.2) /100WBC PT 10.5 L (11.1-13.3) SEC INR 0.9 (0.9-1.1) Independent Interpretation I performed an independent interpretation of an: Plain X-Ray (Left comminuted impacted intertrochanteric fracture) Radiology Impression Discussion of test interpretation with radiology: I have reviewed the radiologist's reading. Radiologist Impression: XR/XR hip LT w [id number] IMPRESSION: Comminuted, displaced and impacted left intertrochanteric femoral fracture. Independent Historian Clinical information obtained from an independent historian. History obtained from or confirmed by: EMS and Other (Daughter) External Record Review External record reviewed: Outpatient record Discharge Plan Discharge Clinical Impression: Closed intertrochanteric fracture Prescriptions: No Action letrozole 2.5 mg Tablet 2.5 mg PO DAILY Qty: 90 3RF Osteo Bi-Flex Triple Strength 2 tab PO DAILY acetaminophen 650 mg tablet 1,300 mg PO BEDTIME multivitamin Tablet 1 tab PO DAILY cetirizine 10 mg Tablet 10 mg PO DAILY lisinopril 5 mg tablet 1 tab PO DAILY turmeric root extract 500 mg Capsule 1,000 mg PO DAILY potassium iodide 65 mg tablet 0.22 mg PO DAILY Flovent HFA 220 mcg/actuation HFA aerosol inhaler 1 puff inhalation BID Combivent Respimat 20-100 mcg/actuation mist 2 puff inhalation BID cholecalciferol (vitamin D3) 50 mcg (2,000 unit) capsule 50 mcg PO DAILY vitamin E 200 unit capsule 400 unit PO DAILY flaxseed oil 1,000 mg capsule 1,000 mg PO DAILY Rx Instructions: administer with a meal Print Language: [place]
[2023-12-14 10:28] LABS: MANUAL DIFF FLAG NO
[2023-12-14 10:30] LABS: Basophils Absolute Auto 0.1 X10*3/uL (0.0-0.2); Basophils Percent Auto 1.2 % (0-2); Eosinophils Absolute Auto 0.5 X10*3/uL (0.0-0.4); Hematocrit 39.8 % (37.0-47.0); Hemoglobin 13.4 g/dl (12.0-16.0); Imm Gran Abs Auto 0.06 X10*3/uL (0.00-0.03); Imm Gran Pct Auto 0.7 % (0.0-0.4); Lymphocytes Absolute Auto 1.7 X10*3/uL (1.2-4.9); Mean Corpuscular HGB Conc 33.7 g/dl (31.0-35.0); Mean Corpuscular Hemoglobin 32.3 pg (27.0-33.0); Mean Corpuscular Volume 95.9 fL (80.0-98.0); Mean Platelet Volume 9.4 fL (9.4-12.3); Monocytes Absolute Auto 0.9 X10*3/uL (0.1-1.2); Monocytes Percent Auto 9.5 % (2-11); Neutrophils Absolute Auto 5.8 x10*3/uL (2.0-8.3); Neutrophils Percent Auto 64.6 % (45-73); Platelet Count 290 X10*3/uL (160-400); Red Blood Count 4.15 X10*6/uL (4.20-5.50); Red Cell Distribution Width 12.4 % (11.0-16.0)
[2023-12-14 10:34] LABS: INTERNATIONAL NORM RATIO 0.9 (0.9-1.1); Prothrombin Time 10.5 SEC (11.1-13.3)
[2023-12-14 10:51] LABS: Alanine Aminotransferase 23 U/L (0-31); Albumin Level 4.6 g/dL (3.5-5.0); Alkaline Phosphatase 67 U/L (39-117); Anion Gap 12 (12-20); Aspartate Amino Transferase 26 U/L (5-31); Bilirubin Total 0.3 mg/dL (0.0-1.0); Blood Urea Nitrogen 24 mg/dL (9-16); Calcium 10.1 mg/dL (8.4-10.2); Carbon Dioxide 27 mmol/L (22-29); Chloride 100 mmol/L (96-108); Creatinine Clr Calc Pharmacy 60.9; Estimated Glomerular Filt Rate > 60; Glucose Random 126 mg/dL (60-115); Sodium 134 mmol/L (135-145); Total Protein 7.5 g/dL (6.5-8.0)
--- NOTE | 2023-12-14 10:51 | PM.EVENT ---
Event Note Date of Service: 12/14/23 Event Note: Left hip intertroch femur fx -medicine admit -T&S -NPO after midnight Time Spent With Patient Time: Total time managing care of this patient today ____ minutes.
--- NOTE | 2023-12-14 10:56 | PC.NURSE ---
16 fr 10cc starkey cath placed with moderate amount of clear yellow urine
--- NOTE | 2023-12-14 11:19 | PHA.MEDREC ---
Addendum entered by Evelyn Oviedo RPh 12/14/23 12:00: reviewed by [facility]. Original Note: Pharmacy Consult ? Medication Reconciliation Pharmacy has completed the medication reconciliation. Spoke to patient to confirm med list . Patient new everything she was taking. Patient states she no longer takes Letrozole 2.5 mg daily, the Dr discontinued on 11-09-23. Combivent is 2 puffs bid not 1 puff qid.
--- NOTE | 2023-12-14 11:41 | P.HPHOSP_ITS ---
History of Present Illness Date of Service: 12/14/23 Attending physician on admission: Daren Parks Chief Complaint: Left hip pain s/p mechanical fall at home Pt is a 73-year-old female with a PMH significant for?HTN, asthma, DCIS, and osteoporosis on Prolia who presents to the ED with?left hip pain after mechanical fall at home. Patient reports that she was at home with the family moving furniture in the basement when she tripped and fell, landing on her left hip. Was unable to move or tolerate weight-bearing due to pain. Denies head strike or LOC. Denies headache, acute vision changes, lightheadedness, or dizziness. No numbness or tingling in extremities. No back pain. Denies chest pain/pressure, palpitations. No SOB or difficulty breathing. Patient is not on blood thinners. Of note, pt is the mother of Rogelio Guerra [facility] who would like to be notified of pt's progress, phone [phone]. In the ED pt was hypertensive up to 168/83, vitals otherwise WNL Labs were significant for sodium 134, otherwise grossly unremarkable and around baseline for patient. CXR showed no acute cardiopulmonary findings or displaced osseous fractures. X-ray of hip and pelvis showed comminuted, displaced, and impacted left intertrochanteric femoral fracture. Pt will be admitted to the hospital for treatment of left hip fracture. Review of Systems 2 Review of Systems: Left hip pain s/p mechanical fall at home No head strike or LOC Denies headache, acute vision changes, lightheadedness, or dizziness No numbness or tingling in extremities Denies chest pain/pressure, palpitations No shortness a breath or difficulty breathing Denies fever, chills, nausea, vomiting, abdominal pain [facility] Medical History Arthritis of both knees Hx of skin cancer, basal cell Ductal carcinoma in situ of left breast Hypertension Asthma Family History Father History of melanoma Mother History of colon cancer Paternal Grandfather History of diabetes mellitus Maternal Grandfather History of diabetes mellitus Surgical History History of lumpectomy of left breast (~04/18/19) History of breast biopsy (~2016) History of basal cell carcinoma (BCC) excision (~2009) History of colonoscopy History of laparoscopic appendectomy (~1996) History of sinus surgery (~1989) Social History Household Members: Family Housing: House Are you a primary pediatric care coordinator to a significant other at home: No Do you presently have visiting nurse or other home services: No Alcohol intake: current Alcohol intake frequency: holidays/special occasions only Patient Tobacco Use Status: Never used Tobacco Smoked in Last 30 Days: No Use of substances other than those prescribed or required for medical reasons: No Advance Directives: No Advance Directives Information Provided: No Nutrition Risks: No Nutritional Risk service: Yes Current occupational status: employed and retired Meds Allergies Allergy/AdvReac Type Severity Reaction Status Date / Time codeine [CODEINE] Allergy Unknown PROJECTILE Verified 12/14/23 09:46 VOMITING latex [LATEX] Allergy Unknown RASH Verified 12/14/23 09:46 SEASONAL ALLERGIES Allergy Unknown WHEEZING, Uncoded 12/14/23 09:46 NASAL CONGESTION Home Medications ?Medication ?Instructions ?Recorded ?Confirmed ?Last Taken ?Type cholecalciferol (vitamin D3) 50 50 mcg PO DAILY 02/03/20 12/14/23 12/14/23 History mcg (2,000 unit) capsule flaxseed oil 1,000 mg capsule 1,000 mg PO DAILY 02/03/20 12/14/23 12/14/23 History potassium iodide 65 mg tablet 0.22 mg PO DAILY 02/03/20 12/14/23 12/14/23 History multivitamin 1 tab PO DAILY 02/09/20 12/14/23 12/14/23 History cetirizine 10 mg tablet 10 mg PO DAILY 09/28/20 12/14/23 12/14/23 History lisinopril 5 mg tablet 5 mg PO BEDTIME 09/28/20 12/14/23 12/14/23 History turmeric root extract 500 mg 1,000 mg PO DAILY 09/28/20 12/14/23 12/14/23 History capsule acetaminophen 650 mg 1,300 mg PO BID 12/14/23 12/14/23 12/14/23 History tablet,extended release (Tylenol Arthritis Pain) fluticasone propionate 220 1 puff inhalation BID 12/14/23 12/14/23 12/14/23 History mcg/actuation HFA aerosol inhaler glucosamine 750 [id number] 2 tab PO DAILY 12/14/23 12/14/23 12/14/23 History no1 644 mg-C 30 mg-randy 1 mg tablet (Osteo Bi-Flex Triple Strength) ipratropium 20 mcg-albuterol 100 2 puff inhalation BID 12/14/23 12/14/23 12/14/23 History mcg/actuation mist for inhalation (Combivent Respimat) naproxen sodium 220 mg tablet 220 mg PO BID PRN Pain 12/14/23 12/14/23 Unknown History vitamin E 268 mg (400 unit) capsule 268 mg PO DAILY 12/14/23 12/14/23 12/14/23 History Physical Exam 2 Vital Signs and Narrative: Vital Signs: Last Vital Signs Temp 97.7 F 12/14/23 09:42 Pulse 71 12/14/23 09:42 Resp 18 12/14/23 09:42 BP 168/83 H 12/14/23 09:42 Pulse Ox 99 12/14/23 09:42 O2 Del Method Room Air 12/14/23 09:42 BMI result Body Mass Index 30.0 General: AOx3, no acute distress Resp: CTA bilaterally CVS: S1, S2, RRR GI: +BS, NT, no distention Skin: Warm, dry Neuro: Cranial nerves II-XII grossly intact bilaterally. Motor grossly intact bilaterally Extremities: No edema. Left leg shortened and externally rotated. ROM of left hip limited secondary to pain. Psych: Appropriate affect Results Labs 12/14/23 10:22 12/14/23 10:22 Labs: Laboratory Results - last 24 hr 12/14/23 10:22 MCV 95.9 MCH 32.3 MCHC 33.7 RDW 12.4 Plt Count 290 MPV 9.4 Immature Gran % (Auto) 0.7 H Neut % (Auto) 64.6 Lymph % (Auto) 19.0 L [place] % (Auto) 9.5 Eos % (Auto) 5.0 H Baso % (Auto) 1.2 Lymph # (Auto) 1.7 [place] # (Auto) 0.9 Eos # (Auto) 0.5 H Baso # (Auto) 0.1 Abs Immat Gran (auto) 0.06 H Absolute Neuts (auto) 5.8 Absolute Nucleated RBC 0.000 Nucleated RBC % (auto) 0.0 PT 10.5 L INR 0.9 Anion Gap 12 Estim Creat Clear Calc 60.9 Estimated GFR > 60 Random Glucose 126 H Calcium 10.1 Total Bilirubin 0.3 AST 26 ALT 23 Alkaline Phosphatase 67 Total Protein 7.5 Albumin 4.6 Blood Type O Positive Antibody Screen NEGATIVE Imaging Radiologist's Impressions: Impressions Hip/Pelvis X-Ray 12/14/23 09:48 IMPRESSION: Comminuted, displaced and impacted left intertrochanteric femoral fracture. Electronically signed by: Geovanna Barahona MD 12/14/2023 10:30 AM EDT RP Chest X-Ray 12/14/23 10:06 IMPRESSION: 1. No acute cardiopulmonary findings. 2. No displaced osseous fractures. Electronically signed by: Geovanna Barahona MD 12/14/2023 10:28 AM EDT RP Assessment and Plan (1) Closed intertrochanteric fracture: Qualifiers: Encounter type: initial encounter Fracture alignment: displaced L aterality: left Qualified Code(s): S72.142A - Displaced intertrochanteric fracture of left femur, initial encounter for closed fracture Status: Acute Plan Pt is a 73-year-old female with a PMH significant for?HTN, asthma, DCIS, and osteoporosis on Prolia who presents to the ED with?left hip pain after mechanical fall at home. Pt will be admitted to the hospital for treatment of left hip fracture. Left hip fracture Secondary to mechanical fall at home while moving furniture X-ray showing comminuted, displaced, and impacted left intertrochanteric femoral fracture Ortho consulted, plan on doing surgery this afternoon NPO Analgesics for pain management; bowel regimen while on opioids Patient is at moderate risk for planned procedure, RCRI class 1 risk No further workup indicated at this time HTN Continue lisinopril Mild intermittent asthma Not in acute exacerbation Continue home inhalers Seasonal allergies Continue cetirizine Full Code Attending:?Dr. Parks DVT Prophylaxis: Pneumatic compression due to imminent surgical procedure Pt will require a hospitalization of at least two nights for treatment of?comminuted, displaced, and impacted left hip fracture requiring surgical intervention. Quality Stroke Does the patient have a stroke diagnosis?: No VTE Prior VTE?: No VTE Risk Level:: Medical - moderate - high VTE Device Contraindication: N/A - Device Ordered VTE Drug Contraindication: Treatment Not Indicated
--- NOTE | 2023-12-14 11:46 | PC.NURSE ---
Assumed care of this patient at 1100, patient resting quietly on stretcher, waiting for admitting provider to come speak with them, plan to admit d/t L hip fxr. 20 R wrist IV placed.
--- NOTE | 2023-12-14 12:46 | PM.CNOR ---
History of Present Illness HPI Consult date: 12/14/23 Chief complaint: Left hip fracture Narrative: 73-year-old female who presents emergency department via EMS for evaluation after a fall this morning with resultant left hip pain. Per ED note, She was helping her daughter move a piece of furniture and as she was walking down the stairs, she slipped on the 3rd step up from the bottom resulting in a fall onto her left side. She was unable to get up and wb, prompting a call to EMS. On arrival, Leg is held in external rotation. Patient live at home with spouse and does not use assisted device for ambulation. She was admitted to medical service and orthopedics was consulted for further recommendations. Review of Systems Review of Systems: Yes all other systems are reviewed and are negative PMFSH Past Medical History Medical History Arthritis of both knees Hx of skin cancer, basal cell Ductal carcinoma in situ of left breast Hypertension Asthma Family History Family History Father History of melanoma Mother History of colon cancer Paternal Grandfather History of diabetes mellitus Maternal Grandfather History of diabetes mellitus Surgical History Surgical History History of lumpectomy of left breast (~08/01/18) History of breast biopsy (~2016) History of basal cell carcinoma (BCC) excision (~2009) History of colonoscopy History of laparoscopic appendectomy (~1996) History of sinus surgery (~1989) Social History Social History Household Members: Family Housing: House Are you a primary home health care respiratory therapist to a significant other at home: No Do you presently have visiting nurse or other home services: No Alcohol intake: current Alcohol intake frequency: holidays/special occasions only Patient Tobacco Use Status: Never used Tobacco Smoked in Last 30 Days: No Use of substances other than those prescribed or required for medical reasons: No Advance Directives: No Advance Directives Information Provided: No service: Yes Current occupational status: employed and retired Meds Allergies Allergy/AdvReac Type Severity Reaction Status Date / Time codeine [CODEINE] Allergy Unknown PROJECTILE Verified 12/14/23 09:46 VOMITING latex [LATEX] Allergy Unknown RASH Verified 12/14/23 09:46 SEASONAL ALLERGIES Allergy Unknown WHEEZING, Uncoded 12/14/23 09:46 NASAL CONGESTION Active Medications: Current Medications Acetaminophen (Acetaminophen 325 Mg Tablet) 650 mg PO Q6H PRN PRN Reason: Pain, Mild (Pain Scale 1-3), fever or headache Benzonatate (Benzonatate 100 Mg Capsule) 100 mg PO TID PRN PRN Reason: Cough Calcium Carbonate (Calcium Carbonate 750 Mg Tab.Chew) 750 mg PO Q4H PRN PRN Reason: Heartburn Docusate Sodium (Docusate Sodium 100 Mg Capsule) 100 mg PO BID OLIVIA Magnesium Hydroxide (Milk Of Magnesia 30 Ml Oral.Susp) 30 ml PO DAILY PRN PRN Reason: Constipation Melatonin (Melatonin 3 Mg Tablet) 6 mg PO BEDTIME PRN PRN Reason: Insomnia Morphine Sulfate (Morphine Sulfate 4 Mg/Ml Cartridge) 4 mg IVPUSH Q4H PRN; Protocol PRN Reason: Pain, Severe (Pain Scale 7-10) Ondansetron HCl (Ondansetron Hcl 4 Mg/2 Ml Vial) 4 mg IVPUSH Q8H PRN PRN Reason: Nausea and Vomiting Polyethylene Glycol (Polyethylene Glycol 3350 17 Gm Powd.Pack) 17 gm PO DAILY [facility] Sodium Chloride (0.9 % Sodium Chloride Flush 3 Ml Syringe) 3 ml IVFLUSH QSHIFT [facility] Home Medications ?Medication ?Instructions ?Recorded ?Confirmed ?Last Taken ?Type cholecalciferol (vitamin D3) 50 50 mcg PO DAILY 02/03/20 12/14/23 12/14/23 History mcg (2,000 unit) capsule flaxseed oil 1,000 mg capsule 1,000 mg PO DAILY 02/03/20 12/14/23 12/14/23 History potassium iodide 65 mg tablet 0.22 mg PO DAILY 02/03/20 12/14/23 12/14/23 History multivitamin 1 tab PO DAILY 02/09/20 12/14/23 12/14/23 History cetirizine 10 mg tablet 10 mg PO DAILY 09/28/20 12/14/23 12/14/23 History lisinopril 5 mg tablet 5 mg PO BEDTIME 09/28/20 12/14/23 12/14/23 History turmeric root extract 500 mg 1,000 mg PO DAILY 09/28/20 12/14/23 12/14/23 History capsule acetaminophen 650 mg 1,300 mg PO BID 12/14/23 12/14/23 12/14/23 History tablet,extended release (Tylenol Arthritis Pain) fluticasone propionate 220 1 puff inhalation BID 12/14/23 12/14/23 12/14/23 History mcg/actuation HFA aerosol inhaler glucosamine 750 [id number] 2 tab PO DAILY 12/14/23 12/14/23 12/14/23 History no1 644 mg-C 30 mg-randy 1 mg tablet (Osteo Bi-Flex Triple Strength) ipratropium 20 mcg-albuterol 100 2 puff inhalation BID 12/14/23 12/14/23 12/14/23 History mcg/actuation mist for inhalation (Combivent Respimat) naproxen sodium 220 mg tablet 220 mg PO BID PRN Pain 12/14/23 12/14/23 Unknown History vitamin E 268 mg (400 unit) capsule 268 mg PO DAILY 12/14/23 12/14/23 12/14/23 History Physical Exam Vital Signs: Vital Signs: Last Vital Signs Temp 98.2 F 12/14/23 12:19 Pulse 79 12/14/23 12:19 Resp 18 12/14/23 09:42 BP 152/82 H 12/14/23 12:19 Pulse Ox 99 12/14/23 12:19 O2 Del Method Room Air 12/14/23 12:19 BMI result Body Mass Index 30.0 Const: General: cooperative, healthy appearing, comfortable and no acute distress Extrem: Other: Left hip skin intact Shortened and ER Pain with log roll NVI Results Labs 12/14/23 10:22 12/14/23 10:22 Labs: Abnormal lab results 12/14/23 Range/Units 10:22 RBC 4.15 L (4.20-5.50) X10*6/uL Immature Gran % (Auto) 0.7 H (0.0-0.4) % Lymph % (Auto) 19.0 L (20-40) % Eos % (Auto) 5.0 H (0-4) % Eos # (Auto) 0.5 H (0.0-0.4) X10*3/uL Abs Immat Gran (auto) 0.06 H (0.00-0.03) X10*3/uL PT 10.5 L (11.1-13.3) SEC Sodium 134 L (135-145) mmol/L BUN 24 H (9-16) mg/dL Random Glucose 126 H (60-115) mg/dL H & H 12/14/23 Range/Units 10:22 Hgb 13.4 (12.0-16.0) g/dl Hct 39.8 (37.0-47.0) % Coagulation 12/14/23 Range/Units 10:22 INR 0.9 (0.9-1.1) All other labs normal. Diagnostic results Hip x-ray: image reviewed (left hip intertroch fx ) Assessment and Plan (1) Closed intertrochanteric fracture: Qualifiers: Encounter type: initial encounter Fracture alignment: displaced Laterality: left Qualified Code(s): S72.142A - Displaced intertrochanteric fracture of left femur, initial encounter for closed fracture Status: Acute Plan I discussed the case with Dr Jama and explained the extent of the injury to the patient and options available which include surgical intervention. I explained the procedure in detail along with the length of recovery and rehab course. I explained the risk, benefits and alternatives. Risk including, but not limited to infection, blood clots, bleeding, non union or malunion and nerve/tissue damage to surrounding areas. I answered all their questions and with their understanding they have consented to move forward with Operative Fixation of the left femur . The patient will be T&S, med clearance obtained and NPO . Procedures Date of Service Date of Service: 12/14/23
[2023-12-14] MEDS: Acetaminophen 325 MG TABLET 650 MG PO ×2 (12:49→18:14)
--- NOTE | 2023-12-14 13:31 | PC.NURSE ---
RN to RN phone report given to SSS, patient to be picked up soon for preop.
[2023-12-14] MEDS: oxyCODONE HCl Immed Release 5 MG TABLET PO ×3 (14:53→23:24)
--- NOTE | 2023-12-14 14:56 | PC.NURSE ---
increased discomfort to 8 out of 10. anesthesia made aware and oxy ordered and given at 1450
--- NOTE | 2023-12-14 15:07 | HO.ANESPROP2 ---
[facility] Active Problems Active Problems: All Active Problems Closed intertrochanteric fracture (Acute) Abnormal mammogram of left breast (Acute) Osteoporosis (Acute) Ductal carcinoma in situ (DCIS) of left breast (Acute) Ductal carcinoma in situ of left breast (Acute) Past Medical History Medical History Arthritis of both knees Hx of skin cancer, basal cell Ductal carcinoma in situ of left breast Hypertension Asthma Family History Family History Father History of melanoma Mother History of colon cancer Paternal Grandfather History of diabetes mellitus Maternal Grandfather History of diabetes mellitus Family history of problems with anesthesia: No Surgical History Surgical History History of lumpectomy of left breast (~08/01/18) History of breast biopsy (~2016) History of basal cell carcinoma (BCC) excision (~2009) History of colonoscopy History of laparoscopic appendectomy (~1996) History of sinus surgery (~1989) History of Problems with Anesthesia: No Social History Social History Household Members: Family Housing: House Are you a primary rehab care assistant to a significant other at home: No Do you presently have visiting nurse or other home services: No Alcohol intake: current Alcohol intake frequency: holidays/special occasions only Patient Tobacco Use Status: Never used Tobacco Smoked in Last 30 Days: No Use of substances other than those prescribed or required for medical reasons: No Have you been hit, kicked, punched, or otherwise hurt by someone within the past year? If so, by whom?: No Are you DNR?: No Advance Directives: No Advance Directives Information Provided: No Recently lost weight without trying: No Nutrition Risks: No Nutritional Risk Patient : No service: Yes Current occupational status: employed and retired Meds Allergies Allergy/AdvReac Type Severity Reaction Status Date / Time codeine [CODEINE] Allergy Unknown PROJECTILE Verified 12/14/23 09:46 VOMITING latex [LATEX] Allergy Unknown RASH Verified 12/14/23 09:46 SEASONAL ALLERGIES Allergy Unknown WHEEZING, Uncoded 12/14/23 09:46 NASAL CONGESTION Active Medications: Current Medications Acetaminophen (Acetaminophen 325 Mg Tablet) 650 mg PO Q6H PRN PRN Reason: Pain, Mild (Pain Scale 1-3), fever or headache Last Admin: 12/14/23 12:49 Dose: 650 mg Albuterol/Ipratropium (Albuterol/Iprat 2.5/0.5mg 3 Ml Ampul.Neb) 3 ml INHALE BID [facility] Benzonatate (Benzonatate 100 Mg Capsule) 100 mg PO TID PRN PRN Reason: Cough Calcium Carbonate (Calcium Carbonate 750 Mg Tab.Chew) 750 mg PO Q4H PRN PRN Reason: Heartburn Docusate Sodium (Docusate Sodium 100 Mg Capsule) 100 mg PO BID [facility] Fluticasone Propionate (Fluticasone Propionate 250 Mcg Blst.W.Dev) 1 puff INHALE RBID [facility] Lisinopril (Lisinopril 5 Mg Tablet) 5 mg PO BEDTIME OLIVIA; Protocol Loratadine (Loratadine 10 Mg Tablet) 10 mg PO DAILY [facility] Magnesium Hydroxide (Milk Of Magnesia 30 Ml Oral.Susp) 30 ml PO DAILY PRN PRN Reason: Constipation Melatonin (Melatonin 3 Mg Tablet) 6 mg PO BEDTIME PRN PRN Reason: Insomnia Morphine Sulfate (Morphine Sulfate 4 Mg/Ml Cartridge) 4 mg IVPUSH Q4H PRN; Protocol PRN Reason: Pain, Severe (Pain Scale 7-10) Multivitamins/Vitamin C (Multivitamin Tablet) 1 tab PO DAILY [facility] Ondansetron HCl (Ondansetron Hcl 4 Mg/2 Ml Vial) 4 mg IVPUSH Q8H PRN PRN Reason: Nausea and Vomiting Polyethylene Glycol (Polyethylene Glycol 3350 17 Gm Powd.Pack) 17 gm PO DAILY [facility] Sodium Chloride (0.9 % Sodium Chloride Flush 3 Ml Syringe) 3 ml IVFLUSH QSHIFT [facility] Vitamin D (Cholecalciferol (Vitamin D3) 25 Mcg Tablet) 50 mcg PO DAILY [facility] Home Medications ?Medication ?Instructions ?Recorded ?Confirmed ?Last Taken ?Type cholecalciferol (vitamin D3) 50 50 mcg PO DAILY 02/03/20 12/14/23 12/13/23 History mcg (2,000 unit) capsule flaxseed oil 1,000 mg capsule 1,000 mg PO DAILY 02/03/20 12/14/23 12/13/23 History potassium iodide 65 mg tablet 0.22 mg PO DAILY 02/03/20 12/14/23 12/13/23 History multivitamin 1 tab PO DAILY 02/09/20 12/14/23 12/13/23 History cetirizine 10 mg tablet 10 mg PO DAILY 09/28/20 12/14/23 12/13/23 History lisinopril 5 mg tablet 5 mg PO BEDTIME 09/28/20 12/14/23 12/14/23 History turmeric root extract 500 mg 1,000 mg PO DAILY 09/28/20 12/14/23 12/13/23 History capsule acetaminophen 650 mg 1,300 mg PO BID 12/14/23 12/14/23 12/13/23 History tablet,extended release (Tylenol Arthritis Pain) fluticasone propionate 220 1 puff inhalation BID 12/14/23 12/14/23 12/13/23 History mcg/actuation HFA aerosol inhaler glucosamine 750 [id number] 2 tab PO DAILY 12/14/23 12/14/23 12/13/23 History no1 644 mg-C 30 mg-randy 1 mg tablet (Osteo Bi-Flex Triple Strength) ipratropium 20 mcg-albuterol 100 2 puff inhalation BID 12/14/23 12/14/23 12/13/23 History mcg/actuation mist for inhalation (Combivent Respimat) naproxen sodium 220 mg tablet 220 mg PO BID PRN Pain 12/14/23 12/14/23 12/13/23 History vitamin E 268 mg (400 unit) capsule 268 mg PO DAILY 12/14/23 12/14/23 12/13/23 History Exam Height,Weight and Vital Signs: Height 5 ft 3 in Weight 65.771 kg Last Vital Signs Temp 97.6 F 12/14/23 14:06 Pulse 93 12/14/23 14:06 Resp 16 12/14/23 14:06 BP 142/71 H 12/14/23 14:06 Pulse Ox 98 12/14/23 14:06 O2 Del Method Room Air 12/14/23 14:06 Pertinent Lab Results Pertinent Lab Results: Laboratory Tests 12/14/23 10:22 WBC 9.0 RBC 4.15 L Hgb 13.4 Hct 39.8 MCV 95.9 MCH 32.3 MCHC 33.7 RDW 12.4 Plt Count 290 MPV 9.4 Immature Gran % (Auto) 0.7 H Neut % (Auto) 64.6 Lymph % (Auto) 19.0 L [place] % (Auto) 9.5 Eos % (Auto) 5.0 H Baso % (Auto) 1.2 Lymph # (Auto) 1.7 [place] # (Auto) 0.9 Eos # (Auto) 0.5 H Baso # (Auto) 0.1 Abs Immat Gran (auto) 0.06 H Absolute Neuts (auto) 5.8 Absolute Nucleated RBC 0.000 Nucleated RBC % (auto) 0.0 PT 10.5 L INR 0.9 Sodium 134 L Potassium 5.0 Chloride 100 Carbon Dioxide 27 Anion Gap 12 BUN 24 H Creatinine 0.83 Estim Creat Clear Calc 60.9 Estimated GFR > 60 Random Glucose 126 H Calcium 10.1 Total Bilirubin 0.3 AST 26 ALT 23 Alkaline Phosphatase 67 Total Protein 7.5 Albumin 4.6 Blood Type O Positive Antibody Screen NEGATIVE Airway Mallampati Class: II (2 caps 1- top left lateral, 1 -bottom left lateral) TM Dist: >3cm Neck ROM: Full Heart: rrr Lungs: cta Assessment and Plan Assessment Anesthesia Assessment: Anesthesia Plan Discussed and Chart Reviewed Final Anesthetic Review Family History of Problems with Anesthesia: No History of Problems with Anesthesia: No NPO: Yes ASA Class: II and Emergency Final Preanesthetic Review: No Changes in Pt Med Stat, Meds/Allgs Chart Reviewed and Consent Obtained/Reviewed Patient Risk: Intermediate Procedure Risk: Intermediate Anesthetic Plan Anesthetic Plan: GA Disposition: Standard PACU
--- NOTE | 2023-12-14 18:04 | PM.OP ---
Brief Operative Note Date of Service: 12/14/23 Pre-op diagnosis: Left hip comminuted intertrochanteric fracture Post-op diagnosis: same Procedure: Open reduction and internal fixation of left hip comminuted intertrochanteric fracture with placement of a [place] cable and short gamma nail Implants: 1 [place] cable, [place] short gamma nail measuring 11 mm in diameter by 180 mm in length with a 130 degree neck-shaft angle, lag screw measuring 110 mm in length, a standard set screw, distal locking bolt measuring 40 mm in length Surgeon: Jean Jama MD Anesthesia: GETA Was an Mechanic Recovery used for this Procedure?: No Estimated blood loss (mL): 100 Pathology: none sent Condition: stable Disposition: PACU
--- NOTE | 2023-12-14 18:05 | W.PM.OPN ---
Operative Note Operative Note Date of Service: 12/14/23 Narrative: After the patient was identified as Taryn Guerra and her left hip was initialed by myself they were brought to the operating room where general anesthesia was induced by the anesthesiologist in routine fashion. The patient was given 2 g of IV Ancef for infection prophylaxis. The patient was then gently transferred from the hospital bed onto the fracture table. The patient's right lower extremity was placed into the well leg rios. The patient's left lower extremity was placed in gentle in-line traction with their patella parallel to the floor. All bony prominences were well padded. C-arm AP and lateral radiographs were taken to confirm good fracture reduction. The patient's left hip region was prepped and draped in sterile fashion. A formal time-out was completed. A #10 scalpel blade was used to make a 5 cm incision just proximal to the tip of the greater trochanter. A curved cannulated awl was introduced into the proximal femur in routine fashion. A ball-tipped guidewire was then placed through the cannula and into the femoral canal. The awl was removed. At this point there was lateral displacement of the greater trochanteric fragment. I felt that reaming through the fragment might significantly displace it. Thus, the decision was made to place a Dall-Miles cable around the greater trochanteric fragment. The incision was then extended 10 cm distally. The subcutaneous tissues were dissected using electrocautery down to the fascia sixto. The fascia was split in line with the skin incision using electrocautery. The vastus lateralis was then split using electrocautery down to the lateral cortex of the femur. A Dall-Miles cable was then placed over the fracture site under C-arm guidance and tightened. At this point the fracture reduction was almost anatomic. Reaming was begun with a 9 mm reamer. Reaming was increased incrementally up to a size 13 reamer distally. The proximal canal was reamed with a 15.5 mm reamer. The gamma nail measuring 11 mm in diameter by 180 mm in length was passed over the guidewire. Good fracture reduction and nail positioning were confirmed using C-arm AP and lateral radiographs. A 2 cm incision was then made where the lag screw trocar met the patient's lateral thigh. The subcutaneous tissues and fascia sixto were split down to the lateral cortex of the femur using a hemostat. The lag screw trocar was passed down to the lateral cortex of the femur. A threaded guidewire was then placed into the inferior aspect of the femoral head on the AP x-ray and the center of the femoral head on the lateral x-ray. The guidewire measured 110 mm in length. Reaming was then performed over the guidewire to a depth of 110 mm. The lag screw measuring 110 mm in length was then placed over the guidewire. The guidewire was removed. The set screw was then placed into the nail and tightened fully. It was then turned 1/4 of a turn counter-clockwise to allow for fracture compression. The Dall-Miles cable was then tightened and cut in routine fashion. A 2 cm incision was then made where the distal locking bolt trocar met the lateral aspect of the patient's thigh. The subcutaneous tissues and the fascia sixto were split down to the lateral cortex of the femur. The locking bolt hole was drilled in routine fashion. The drill bit measured 40 mm in length. The distal locking bolt measuring 40 mm in length was put into place without difficulty. Final AP and lateral radiographs showed good fracture reduction and hardware positioning. All 3 wounds were irrigated with copious amounts of normal saline solution. The distal 2 wounds were closed with 2-0 Vicryl and skin gloria. The proximal wound was once again irrigated. The fascia sixto was closed with 0 Vicryl [id number] interrupted suture. The wound was once again irrigated. The subcutaneous tissues were closed with 2-0 Vicryl interrupted suture. The skin was closed with skin gloria. Dry sterile dressing was placed over all incisions. The patient was gently transferred from the fracture table onto their hospital bed. The patient was awoken and extubated in the operating room. The patient was transferred to the recovery room in stable condition.
[2023-12-14] MEDS: Fluticasone Propionate 250 MCG BLST.W.DEV 1 PUFF INHALE (18:58)
[2023-12-14] MEDS: Albuterol/Iprat 2.5/0.5MG 3 ML AMPUL.NEB INHALE (19:04)
[2023-12-14] MEDS: Docusate Sodium 100 MG CAPSULE PO (20:31)
[2023-12-14] MEDS: Aspirin 325 MG TABLET PO (20:31)
[2023-12-14] MEDS: lisinopriL 5 MG TABLET PO (20:32)
[2023-12-14] MEDS: 0.9 % Sodium Chloride Flush 3 ML SYRINGE IVFLUSH (20:32)
[2023-12-14] MEDS: oxyCODONE HCl ER 10 MG TAB.ER.12H PO (21:13)
[2023-12-15] MEDS: 0.9 % Sodium Chloride Flush 3 ML SYRINGE IVFLUSH ×5 (00:48→19:51)
[2023-12-15] MEDS: ceFAZolin Sodium/Dextrose,Iso 2 GM/50 ML PIGGYBACK IV ×2 (00:48→07:58)
[2023-12-15] MEDS: Melatonin 3 MG TABLET 6 MG PO ×2 (00:52→19:50)
[2023-12-15 03:04] VITALS: BP 100/54; PULSE 68; RESP 16; TEMP 36.8; O2SAT 98
[2023-12-15] MEDS: Acetaminophen 325 MG TABLET 650 MG PO ×5 (03:23→22:46)
[2023-12-15] MEDS: oxyCODONE HCl Immed Release 5 MG TABLET PO ×5 (03:23→22:46)
[2023-12-15 06:51] LABS: Anion Gap 11 (12-20); Blood Urea Nitrogen 17 mg/dL (9-16); Carbon Dioxide 24 mmol/L (22-29); Chloride 101 mmol/L (96-108); Creatinine Clr Calc Pharmacy 68.2; Estimated Glomerular Filt Rate > 60; Glucose Random 131 mg/dL (60-115); Potassium 4.7 mmol/L (3.3-5.1); Sodium 131 mmol/L (135-145)
[2023-12-15 07:10] LABS: Calcium 7.9 mg/dL (8.4-10.2)
[2023-12-15 07:29] LABS: Hematocrit 24.1 % (37.0-47.0); Mean Corpuscular HGB Conc 35.3 g/dl (31.0-35.0); Mean Corpuscular Hemoglobin 33.3 pg (27.0-33.0); Mean Corpuscular Volume 94.5 fL (80.0-98.0); Mean Platelet Volume 10.3 fL (9.4-12.3); Platelet Count 233 X10*3/uL (160-400); Red Blood Count 2.55 X10*6/uL (4.20-5.50); Red Cell Distribution Width 12.5 % (11.0-16.0); White Blood Count 9.7 X10*3/uL (4.8-10.8)
[2023-12-15 07:33] LABS: Hemoglobin 8.5 g/dl (12.0-16.0)
[2023-12-15 07:45] VITALS: BP 98/53; PULSE 78; RESP 16; TEMP 36.6; O2SAT 98
[2023-12-15] MEDS: Fluticasone Propionate 250 MCG BLST.W.DEV 1 PUFF INHALE ×2 (07:51→18:59)
[2023-12-15] MEDS: Albuterol/Iprat 2.5/0.5MG 3 ML AMPUL.NEB INHALE ×2 (07:52→18:47)
[2023-12-15 07:53] VITALS: PULSE 76; RESP 18; O2SAT 95
[2023-12-15] MEDS: Multivitamin TABLET 1 TAB PO (07:57)
[2023-12-15] MEDS: Aspirin 325 MG TABLET PO ×2 (07:57→19:49)
[2023-12-15] MEDS: Cholecalciferol (Vitamin D3) 25 MCG TABLET 50 MCG PO (07:57)
[2023-12-15] MEDS: Docusate Sodium 100 MG CAPSULE PO ×2 (07:58→19:50)
[2023-12-15] MEDS: oxyCODONE HCl ER 10 MG TAB.ER.12H PO ×2 (07:58→19:49)
[2023-12-15] MEDS: Cyclobenzaprine HCl 5 MG TABLET PO ×2 (08:29→16:29)
--- NOTE | 2023-12-15 09:35 | P.PNOP_ITS ---
Subjective Subjective Date of Service: 12/15/23 Interval history: POD 1 s/p LT hip IMN no overnight events working with PT this AM denies cp,sob,palpitations Physical Exam Vital Signs: Vital Signs: Last Vital Signs Temp 97.9 F 12/15/23 07:45 Pulse 76 12/15/23 07:53 Resp 18 12/15/23 07:53 BP 98/53 L 12/15/23 07:45 Pulse Ox 98 12/15/23 07:45 O2 Del Method Room Air 12/15/23 07:45 O2 Flow Rate 6 12/14/23 17:59 BMI result Body Mass Index 25.7 Const: General: cooperative, healthy appearing and no acute distress Resp: Effort & Inspection: normal respiratory effort and able to speak in complete sentences Cardio: Rate: regular rate Peripheral pulses: Peripheral pulses 2+ throughout GI: Palpation (GI): Soft to palpation Skin: General skin exam: no rashes or lesions noted Extrem: Other: left hip bandage clean, dry and intact, sensation intact. she can plantar and dorsi flex. NVI Procedures Date of Service Date of Service: 12/15/23 Progress Note: A&P Assessment and plan (1) Closed intertrochanteric fracture: Status: Acute Assessment and Plan: * Continue pain mgmnt * Begin Aspirin for dvt ppx * begin PT /OT for Lt hip imn TTWB * Dispo planning-Pending PT eval, pain mgmnt Time Spent With Patient Time: Total time managing care of this patient today ____ minutes. Quality Stroke Does the patient have a stroke diagnosis?: No VTE Prior VTE?: No VTE Risk Level:: Medical - moderate - high VTE Device Contraindication: N/A - Device Ordered VTE Drug Contraindication: Treatment Not Indicated
--- NOTE | 2023-12-15 10:18 | P.PNIM_ITS ---
Subjective Subjective Date of Service: 12/15/23 Interval History: quad spasms Physical Exam 2 Vital Signs: Vital Signs: Last Vital Signs Temp 97.9 F 12/15/23 07:45 Pulse 76 12/15/23 07:53 Resp 18 12/15/23 07:53 BP 98/53 L 12/15/23 07:45 Pulse Ox 98 12/15/23 07:45 O2 Del Method Room Air 12/15/23 07:45 O2 Flow Rate 6 12/14/23 17:59 BMI result Body Mass Index 25.7 Const: General: cooperative, healthy appearing and no acute distress Resp: Effort & Inspection: normal respiratory effort and able to speak in complete sentences Cardio: Rate: regular rate Peripheral pulses: Peripheral pulses 2+ throughout GI: Palpation (GI): Soft to palpation Skin: General skin exam: no rashes or lesions noted Extrem: Other: left hip bandage clean, dry and intact, sensation intact. she can plantar and dorsi flex. NVI Objective Data Active Medications Acetaminophen (Acetaminophen 325 Mg Tablet) 650 mg PO Q4H PRN PRN Reason: Pain, Mild (Pain Scale 1-3), fever or headache Last Admin: 12/15/23 08:29 Dose: 650 mg Documented By: PRASAD Albuterol/Ipratropium (Albuterol/Iprat 2.5/0.5mg 3 Ml Ampul.Neb) 3 ml INHALE BID [facility] Last Admin: 12/15/23 07:52 Dose: 3 ml Documented By: CHANDA Aspirin (Aspirin 325 Mg Tablet) 325 mg PO BID [facility] Last Admin: 12/15/23 07:57 Dose: 325 mg Documented By: PRASAD Benzonatate (Benzonatate 100 Mg Capsule) 100 mg PO TID PRN PRN Reason: Cough Calcium Carbonate (Calcium Carbonate 750 Mg Tab.Chew) 750 mg PO Q4H PRN PRN Reason: Heartburn Cyclobenzaprine HCl (Cyclobenzaprine Hcl 5 Mg Tablet) 5 mg PO TID PRN PRN Reason: Muscle Spasm Last Admin: 12/15/23 08:29 Dose: 5 mg Documented By: DEBRAEMA Docusate Sodium (Docusate Sodium 100 Mg Capsule) 100 mg PO BID [facility] Last Admin: 12/15/23 07:58 Dose: 100 mg Documented By: HO.COTEMA Fluticasone Propionate (Fluticasone Propionate 250 Mcg Blst.W.Dev) 1 puff INHALE RBID [facility] Last Admin: 12/15/23 07:51 Dose: 1 puff Documented By: CHANDA Hydromorphone HCl (Hydromorphone Hcl 2 Mg Tablet) 2 mg PO Q3H PRN PRN Reason: Pain, Moderate(Pain Scale 4-6) Hydromorphone HCl (Hydromorphone Hcl 4 Mg Tablet) 4 mg PO Q3H PRN PRN Reason: Pain, Severe (Pain Scale 7-10) Cefazolin Sodium/Dextrose (Ancef) 2 gm in 50 mls @ 100 mls/hr IV Q8H [facility] Stop: 12/15/23 15:00 Last Infusion: 12/15/23 08:52 Dose: Infused Documented By: PRASAD Lisinopril (Lisinopril 5 Mg Tablet) 5 mg PO BEDTIME [facility]; Protocol Last Admin: 12/14/23 20:32 Dose: 5 mg Documented By: PRESLEY Magnesium Hydroxide (Milk Of Magnesia 30 Ml Oral.Susp) 30 ml PO DAILY PRN PRN Reason: Constipation Melatonin (Melatonin 3 Mg Tablet) 6 mg PO BEDTIME PRN PRN Reason: Insomnia Last Admin: 12/15/23 00:52 Dose: 6 mg Documented By: PRESLEY Multivitamins/Vitamin C (Multivitamin Tablet) 1 tab PO DAILY [facility] Last Admin: 12/15/23 07:57 Dose: 1 tab Documented By: PRASAD Ondansetron HCl (Ondansetron Hcl 4 Mg/2 Ml Vial) 4 mg IVPUSH Q8H PRN PRN Reason: Nausea and Vomiting Oxycodone HCl (Oxycodone Hcl Er 10 Mg Tab.Er.12h) 10 mg PO BID [facility] Last Admin: 12/15/23 07:58 Dose: 10 mg Documented By: COTEMA Oxycodone HCl (Oxycodone Hcl Immed Release 5 Mg Tablet) 5 mg PO Q4H PRN PRN Reason: Pain, Moderate(Pain Scale 4-6) Last Admin: 12/15/23 07:58 Dose: 5 mg Documented By: PRASAD Polyethylene Glycol (Polyethylene Glycol 3350 17 Gm Powd.Pack) 17 gm PO DAILY [facility] Last Admin: 12/15/23 08:02 Dose: Not Given Documented By: PRASAD Non-Admin Reason: Patient Refused Sodium Chloride (0.9 % Sodium Chloride Flush 3 Ml Syringe) 3 ml IVFLUSH QSDCFT [facility] Last Admin: 12/15/23 08:03 Dose: 3 ml Documented By: PRASAD Sodium Chloride (0.9 % Sodium Chloride Flush 3 Ml Syringe) [facility] Last Admin: 12/15/23 08:03 Dose: 3 ml Documented By: PRASAD Vitamin D (Cholecalciferol (Vitamin D3) 25 Mcg Tablet) 50 mcg PO DAILY [facility] Last Admin: 12/15/23 07:57 Dose: 50 mcg Documented By: PRASAD Labs 12/15/23 05:39 12/15/23 05:39 Labs: Laboratory Results - last 24 hr 12/14/23 12/15/23 10:22 05:39 MCV 95.9 94.5 MCH 32.3 33.3 H MCHC 33.7 35.3 H RDW 12.4 12.5 Plt Count 290 233 MPV 9.4 10.3 Immature Gran % (Auto) 0.7 H Neut % (Auto) 64.6 Lymph % (Auto) 19.0 L [place] % (Auto) 9.5 Eos % (Auto) 5.0 H Baso % (Auto) 1.2 Lymph # (Auto) 1.7 [place] # (Auto) 0.9 Eos # (Auto) 0.5 H Baso # (Auto) 0.1 Abs Immat Gran (auto) 0.06 H Absolute Neuts (auto) 5.8 Absolute Nucleated RBC 0.000 0.000 Nucleated RBC % (auto) 0.0 0.0 PT 10.5 L INR 0.9 Anion Gap 12 11 L Estim Creat Clear Calc 60.9 68.2 Estimated GFR > 60 > 60 Random Glucose 126 H 131 H Calcium 10.1 7.9 L D Total Bilirubin 0.3 AST 26 ALT 23 Alkaline Phosphatase 67 Total Protein 7.5 Albumin 4.6 Blood Type O Positive Antibody Screen NEGATIVE Assessment and Plan (1) Closed intertrochanteric fracture: Status: Acute Plan 73F PMH htn, asthma, dcis, osteoporosis, presented with left hip pain after mechanical fall found to have left intertrochanteric femur fracture Acute left intertrochanteric femur fracture Postop day 1 Aspirin b.i.d. for DVT prophylaxis PT Continue oxycodone and Flexeril for pain Complicated by acute blood loss and inflammatory anemia No need for transfusion at this point Hypertension Lisinopril Mild intermittent asthma Stable Seasonal allergies Zyrtec Full code reason for continued hospitalization: Postop monitoring Quality Stroke Does the patient have a stroke diagnosis?: No VTE Prior VTE?: No VTE Risk Level:: Medical - moderate - high VTE Device Contraindication: N/A - Device Ordered VTE Drug Contraindication: Treatment Not Indicated
--- NOTE | 2023-12-15 10:32 | HO.POSTANES ---
Post Anesthesia Evaluation Post Anesthesia Evaluation Date of Service: 12/15/23 Vital Signs: Vital Signs Temp Pulse Resp BP Pulse Ox O2 Del Method 12/15/23 07:53 76 18 12/15/23 07:45 97.9 F 78 16 98/53 L 98 Room Air 12/15/23 03:04 98.3 F 68 16 100/54 L 98 Room Air 12/14/23 23:28 97.7 F 83 16 106/58 L 98 Room Air Anesthesia: General Endotracheal-GETA Mental Status: Awake Pain Control: Satisfactory Nausea/Vomiting: None Hydration: Adequate Anesthesia-Related Issues: No Anes. Related Issues
[2023-12-15 15:41] VITALS: BP 120/56; PULSE 77; RESP 20; TEMP 36.3; O2SAT 99
--- NOTE | 2023-12-15 16:31 | MHC.CM.PN ---
CM MET WITH PT AND FAMILY PT LIVES AT HOME AND IS INDEPENDENT WITH CARE AND MOBILITY AT BASELINE PT HAS A HCP, HOWEVER IT IS NOT ON FILE, A NEW ONE WILL BE COMPLETED PCP: YASIR GAMEZ AND JAELYN GALVEZ DELIVERED DCP: TBD HOME WITH [facility] VS STR TRANSPORT TBD BY DISPOSITION
--- NOTE | 2023-12-15 18:26 | PC.NURSE ---
PRN tylenol given for 4/10 pain at pt request
[2023-12-15 18:48] VITALS: PULSE 93; RESP 20; O2SAT 99
[2023-12-15 19:12] VITALS: BP 115/56; PULSE 96; RESP 20; TEMP 36.1; O2SAT 99
[2023-12-15] MEDS: lisinopriL 5 MG TABLET PO (19:49)
[2023-12-16] VITALS (7 sets, daily range): BP systolic 104–123; BP diastolic 52–55; PULSE 76–99; RESP 12–20; TEMP 36.3–36.9; O2SAT 96–100
[2023-12-16] MEDS: Cyclobenzaprine HCl 5 MG TABLET PO (00:43)
[2023-12-16] MEDS: 0.9 % Sodium Chloride Flush 3 ML SYRINGE IVFLUSH ×4 (00:46→17:01)
[2023-12-16] MEDS: oxyCODONE HCl Immed Release 5 MG TABLET PO ×5 (05:35→21:55)
[2023-12-16] MEDS: Acetaminophen 325 MG TABLET 650 MG PO ×5 (05:35→21:55)
[2023-12-16 06:58] LABS: Anion Gap 9 (12-20); Blood Urea Nitrogen 14 mg/dL (9-16); Calcium 8.2 mg/dL (8.4-10.2); Carbon Dioxide 28 mmol/L (22-29); Chloride 100 mmol/L (96-108); Creatinine Clr Calc Pharmacy 70.2; Estimated Glomerular Filt Rate > 60; Glucose Random 105 mg/dL (60-115); Potassium 4.2 mmol/L (3.3-5.1); Sodium 133 mmol/L (135-145)
[2023-12-16 07:23] LABS: Hematocrit 22.1 % (37.0-47.0); Hemoglobin 7.5 g/dl (12.0-16.0); Mean Corpuscular HGB Conc 33.9 g/dl (31.0-35.0); Mean Corpuscular Volume 97.4 fL (80.0-98.0); Mean Platelet Volume 10.4 fL (9.4-12.3); Platelet Count 194 X10*3/uL (160-400); Red Blood Count 2.27 X10*6/uL (4.20-5.50); Red Cell Distribution Width 12.6 % (11.0-16.0); White Blood Count 6.5 X10*3/uL (4.8-10.8)
[2023-12-16] MEDS: Fluticasone Propionate 250 MCG BLST.W.DEV 1 PUFF INHALE ×2 (07:47→18:55)
[2023-12-16] MEDS: Albuterol/Iprat 2.5/0.5MG 3 ML AMPUL.NEB INHALE ×2 (07:47→18:55)
[2023-12-16] MEDS: Aspirin 325 MG TABLET PO ×2 (08:34→20:07)
[2023-12-16] MEDS: Multivitamin TABLET 1 TAB PO (08:34)
[2023-12-16] MEDS: Cyclobenzaprine HCl 10 MG TABLET PO ×2 (08:34→16:56)
[2023-12-16] MEDS: Cholecalciferol (Vitamin D3) 25 MCG TABLET 50 MCG PO (08:34)
[2023-12-16] MEDS: Docusate Sodium 100 MG CAPSULE PO ×2 (08:34→20:07)
[2023-12-16] MEDS: oxyCODONE HCl ER 10 MG TAB.ER.12H PO ×2 (08:35→20:07)
--- NOTE | 2023-12-16 08:55 | P.PNIM_ITS ---
Subjective Subjective Date of Service: 12/16/23 Interval History: no bms Physical Exam 2 Vital Signs: Vital Signs: Last Vital Signs Temp 97.4 F 12/16/23 07:55 Pulse 78 12/16/23 07:55 Resp 16 12/16/23 07:55 BP 107/54 L 12/16/23 07:55 Pulse Ox 97 12/16/23 07:55 O2 Del Method Room Air 12/16/23 07:55 O2 Flow Rate 6 12/14/23 17:59 BMI result Body Mass Index 25.7 Const: General: cooperative, healthy appearing and no acute distress Resp: Effort & Inspection: normal respiratory effort and able to speak in complete sentences Cardio: Rate: regular rate Peripheral pulses: Peripheral pulses 2+ throughout GI: Palpation (GI): Soft to palpation Skin: General skin exam: no rashes or lesions noted Extrem: Other: left hip bandage clean, dry and intact, sensation intact. she can plantar and dorsi flex. NVI Objective Data Active Medications Acetaminophen (Acetaminophen 325 Mg Tablet) 650 mg PO Q4H PRN PRN Reason: Pain, Mild (Pain Scale 1-3), fever or headache Last Admin: 12/16/23 05:35 Dose: 650 mg Documented By: ALFREDO Albuterol/Ipratropium (Albuterol/Iprat 2.5/0.5mg 3 Ml Ampul.Neb) 3 ml INHALE BID [facility] Last Admin: 12/16/23 07:47 Dose: 3 ml Documented By: CHANDA Aspirin (Aspirin 325 Mg Tablet) 325 mg PO BID [facility] Last Admin: 12/16/23 08:34 Dose: 325 mg Documented By: TAMIE Benzonatate (Benzonatate 100 Mg Capsule) 100 mg PO TID PRN PRN Reason: Cough Calcium Carbonate (Calcium Carbonate 750 Mg Tab.Chew) 750 mg PO Q4H PRN PRN Reason: Heartburn Cyclobenzaprine HCl (Cyclobenzaprine Hcl 10 Mg Tablet) 10 mg PO TID PRN PRN Reason: Muscle Spasm Last Admin: 12/16/23 08:34 Dose: 10 mg Documented By: TAMIE Docusate Sodium (Docusate Sodium 100 Mg Capsule) 100 mg PO BID [facility] Last Admin: 12/16/23 08:34 Dose: 100 mg Documented By: TAMIE Fluticasone Propionate (Fluticasone Propionate 250 Mcg Blst.W.Dev) 1 puff INHALE RBID [facility] Last Admin: 12/16/23 07:47 Dose: 1 puff Documented By: CHANDA Hydromorphone HCl (Hydromorphone Hcl 2 Mg Tablet) 2 mg PO Q3H PRN PRN Reason: Pain, Moderate(Pain Scale 4-6) Hydromorphone HCl (Hydromorphone Hcl 4 Mg Tablet) 4 mg PO Q3H PRN PRN Reason: Pain, Severe (Pain Scale 7-10) Lisinopril (Lisinopril 5 Mg Tablet) 5 mg PO BEDTIME [facility]; Protocol Last Admin: 12/15/23 19:49 Dose: 5 mg Documented By: ALFREDO Magnesium Hydroxide (Milk Of Magnesia 30 Ml Oral.Susp) 30 ml PO DAILY PRN PRN Reason: Constipation Melatonin (Melatonin 3 Mg Tablet) 6 mg PO BEDTIME PRN PRN Reason: Insomnia Last Admin: 12/15/23 19:50 Dose: 6 mg Documented By: ALFREDO Multivitamins/Vitamin C (Multivitamin Tablet) 1 tab PO DAILY [facility] Last Admin: 12/16/23 08:34 Dose: 1 tab Documented By: TAMIE Patient Own (Zyrtec (10 Mg)) 1 each PO DAILY [facility] Last Admin: 12/16/23 08:35 Dose: 1 each Documented By: TAMIE Ondansetron HCl (Ondansetron Hcl 4 Mg/2 Ml Vial) 4 mg IVPUSH Q8H PRN PRN Reason: Nausea and Vomiting Oxycodone HCl (Oxycodone Hcl Er 10 Mg Tab.Er.12h) 10 mg PO BID [facility] Last Admin: 12/16/23 08:35 Dose: 10 mg Documented By: TAMIE Oxycodone HCl (Oxycodone Hcl Immed Release 5 Mg Tablet) 5 mg PO Q4H PRN PRN Reason: Pain, Moderate(Pain Scale 4-6) Last Admin: 12/16/23 05:35 Dose: 5 mg Documented By: ALFREDO Polyethylene Glycol (Polyethylene Glycol 3350 17 Gm Powd.Pack) 17 gm PO DAILY [facility] Last Admin: 12/16/23 08:35 Dose: Not Given Documented By: TAMIE Non-Admin Reason: Patient Refused Sodium Chloride (0.9 % Sodium Chloride Flush 3 Ml Syringe) 3 ml IVFLUSH QSHIFT [facility] Last Admin: 12/16/23 08:34 Dose: 3 ml Documented By: TAMIE Sodium Chloride (0.9 % Sodium Chloride Flush 3 Ml Syringe) 3 ml IVFLUSH QSHIFT [facility] Last Admin: 12/16/23 08:35 Dose: Not Given Documented By: TAMIE Non-Admin Reason: repeat order Vitamin D (Cholecalciferol (Vitamin D3) 25 Mcg Tablet) 50 mcg PO DAILY [facility] Last Admin: 12/16/23 08:34 Dose: 50 mcg Documented By: TAMIE Labs 12/16/23 05:38 12/16/23 05:38 Labs: Laboratory Results - last 24 hr 12/16/23 05:38 MCV 97.4 MCH 33.0 MCHC 33.9 RDW 12.6 Plt Count 194 MPV 10.4 Absolute Nucleated RBC 0.000 Nucleated RBC % (auto) 0.0 Anion Gap 9 L Estim Creat Clear Calc 70.2 Estimated GFR > 60 Random Glucose 105 Calcium 8.2 L Assessment and Plan (1) Closed intertrochanteric fracture: Status: Acute Plan 73F PMH htn, asthma, dcis, osteoporosis, presented with left hip pain after mechanical fall found to have left intertrochanteric femur fracture Acute left intertrochanteric femur fracture Postop day 2 Aspirin b.i.d. for DVT prophylaxis PT - recommending STR Continue oxycodone and Flexeril for pain - increased flexeril to 10mg tid Complicated by acute blood loss and inflammatory anemia No need for transfusion at this point Hypertension Lisinopril Mild intermittent asthma Stable Seasonal allergies Zyrtec Full code reason for continued hospitalization: Postop monitoring Quality Stroke Does the patient have a stroke diagnosis?: No VTE Prior VTE?: No VTE Risk Level:: Medical - moderate - high VTE Device Contraindication: N/A - Device Ordered VTE Drug Contraindication: Treatment Not Indicated
--- NOTE | 2023-12-16 13:29 | P.PNOP_ITS ---
Subjective Subjective Date of Service: 12/16/23 Interval history: POD 2 s/p LT hip IMN no overnight events Resting in chair denies cp,sob,palpitations Physical Exam Vital Signs: Vital Signs: Last Vital Signs Temp 97.4 F 12/16/23 07:55 Pulse 78 12/16/23 07:55 Resp 16 12/16/23 07:55 BP 107/54 L 12/16/23 07:55 Pulse Ox 97 12/16/23 07:55 O2 Del Method Room Air 12/16/23 07:55 O2 Flow Rate 6 12/14/23 17:59 BMI result Body Mass Index 25.7 Const: General: cooperative, healthy appearing and no acute distress Resp: Effort & Inspection: normal respiratory effort and able to speak in complete sentences Cardio: Rate: regular rate Peripheral pulses: Peripheral pulses 2+ throughout GI: Palpation (GI): Soft to palpation Skin: General skin exam: no rashes or lesions noted Extrem: Other: left hip bandage clean, dry and intact, sensation intact. she can plantar and dorsi flex. NVI Procedures Date of Service Date of Service: 12/16/23 Progress Note: A&P Assessment and plan (1) Closed intertrochanteric fracture: Status: Acute Assessment and Plan: * Continue pain mgmnt * Aspirin for dvt ppx * PT /OT for Lt hip imn TTWB * Monitor h/h-patient wants to hold off on transfusion * Dispo planning-Pending PT eval, pain mgmnt Time Spent With Patient Time: Total time managing care of this patient today ____ minutes. Quality Stroke Does the patient have a stroke diagnosis?: No VTE Prior VTE?: No VTE Risk Level:: Medical - moderate - high VTE Device Contraindication: N/A - Device Ordered VTE Drug Contraindication: Treatment Not Indicated
[2023-12-16] MEDS: lisinopriL 5 MG TABLET PO (20:06)
[2023-12-16] MEDS: Melatonin 3 MG TABLET 6 MG PO (21:55)
[2023-12-17] VITALS (8 sets, daily range): BP systolic 102–117; BP diastolic 38–58; PULSE 72–97; RESP 14–17; TEMP 36.6–36.8; O2SAT 96–100
[2023-12-17] MEDS: oxyCODONE HCl Immed Release 5 MG TABLET PO ×5 (02:16→20:14)
[2023-12-17] MEDS: Cyclobenzaprine HCl 10 MG TABLET PO ×3 (02:16→18:01)
[2023-12-17] MEDS: Acetaminophen 325 MG TABLET 650 MG PO ×4 (02:17→20:13)
[2023-12-17] MEDS: Albuterol/Iprat 2.5/0.5MG 3 ML AMPUL.NEB INHALE ×2 (07:26→19:39)
[2023-12-17] MEDS: Fluticasone Propionate 250 MCG BLST.W.DEV 1 PUFF INHALE ×2 (07:27→19:39)
[2023-12-17] MEDS: oxyCODONE HCl ER 10 MG TAB.ER.12H PO ×2 (07:57→20:12)
[2023-12-17] MEDS: Aspirin 325 MG TABLET PO ×2 (07:58→20:13)
[2023-12-17] MEDS: 0.9 % Sodium Chloride Flush 3 ML SYRINGE IVFLUSH ×3 (07:58→23:29)
[2023-12-17] MEDS: Cholecalciferol (Vitamin D3) 25 MCG TABLET 50 MCG PO (07:58)
[2023-12-17] MEDS: Docusate Sodium 100 MG CAPSULE PO ×2 (07:58→20:12)
[2023-12-17] MEDS: Multivitamin TABLET 1 TAB PO (07:58)
--- NOTE | 2023-12-17 08:38 | PM.PNORT ---
Subjective Subjective Date of Service: 12/17/23 Principal diagnosis: left hip pain Interval history: Ms. Wilner Guerra is seen resting comfortably in bed this morning after undergoing left hip gamma nail placement on 12/14/2023. She reports mild to moderate discomfort in her left hip and thigh. She denies any fevers or chills. She continues to be toe-touch weight-bearing on her left lower extremity. Physical Exam Vital Signs: Vital Signs: Last Vital Signs Temp 98.1 F 12/17/23 07:02 Pulse 72 12/17/23 07:27 Resp 14 12/17/23 07:27 BP 109/58 L 12/17/23 07:02 Pulse Ox 100 12/17/23 07:02 O2 Del Method Room Air 12/17/23 07:02 O2 Flow Rate 6 12/14/23 17:59 BMI result Body Mass Index 25.7 Extrem: Other: Left lower extremity examination shows that the surgical dressing is clean, dry and intact, normal sensation to light touch, good capillary refill Procedures Date of Service Date of Service: 12/17/23 Progress Note: A&P Assessment and plan (1) Closed intertrochanteric fracture: Status: Acute Assessment and Plan: Ms. Wilner Guerra is doing well after undergoing open reduction and internal fixation of her left hip fracture on 12/14/2023. She should continue toe-touch weight-bearing on her left lower extremity due to the fracture comminution. I will progress her weight-bearing status as bony healing occurs. 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 The patient is stable at present. Time Spent With Patient Time: Total time managing care of this patient today 10 minutes. Quality Stroke Does the patient have a stroke diagnosis?: No VTE Prior VTE?: No VTE Risk Level:: Medical - moderate - high VTE Device Contraindication: N/A - Device Ordered VTE Drug Contraindication: Treatment Not Indicated
--- NOTE | 2023-12-17 09:26 | HO.PM.IMPN ---
Subjective Subjective Date of Service: 12/17/23 Interval History: pain decently controlled, ambulating, successful voiding trial Physical Exam Vital Signs: Vital Signs: Last Vital Signs Temp 98.1 F 12/17/23 07:02 Pulse 72 12/17/23 07:27 Resp 14 12/17/23 07:27 BP 109/58 L 12/17/23 07:02 Pulse Ox 100 12/17/23 07:02 O2 Del Method Room Air 12/17/23 07:02 O2 Flow Rate 6 12/14/23 17:59 BMI result Body Mass Index 25.7 Extrem: Other: Left lower extremity examination shows that the surgical dressing is clean, dry and intact, normal sensation to light touch, good capillary refill Objective Data Active Medications Acetaminophen (Acetaminophen 325 Mg Tablet) 650 mg PO Q4H PRN PRN Reason: Pain, Mild (Pain Scale 1-3), fever or headache Last Admin: 12/17/23 02:17 Dose: 650 mg Documented By: PRESLEY Albuterol/Ipratropium (Albuterol/Iprat 2.5/0.5mg 3 Ml Ampul.Neb) 3 ml INHALE BID FOR[facility]LY [facility], [facility]–1983 Last Admin: 12/17/23 07:26 Dose: 3 ml Documented By: CHANDA Aspirin (Aspirin 325 Mg Tablet) 325 mg PO BID [facility], [facility]1983 Last Admin: 12/17/23 07:58 Dose: 325 mg Documented By: SUSY Benzonatate (Benzonatate 100 Mg Capsule) 100 mg PO TID PRN PRN Reason: Cough Calcium Carbonate (Calcium Carbonate 750 Mg Tab.Chew) 750 mg PO Q4H PRN PRN Reason: Heartburn Cyclobenzaprine HCl (Cyclobenzaprine Hcl 10 Mg Tablet) 10 mg PO TID PRN PRN Reason: Muscle Spasm Last Admin: 12/17/23 02:16 Dose: 10 mg Documented By: PRESLEY Docusate Sodium (Docusate Sodium 100 Mg Capsule) 100 mg PO BID [facility], [facility]1983 Last Admin: 12/17/23 07:58 Dose: 100 mg Documented By: SUSY Fluticasone Propionate (Fluticasone Propionate 250 Mcg Blst.W.Dev) 1 puff INHALE RBID [facility], [facility]–1983 Last Admin: 12/17/23 07:27 Dose: 1 puff Documented By: CHANDA Hydromorphone HCl (Hydromorphone Hcl 2 Mg Tablet) 2 mg PO Q3H PRN PRN Reason: Pain, Moderate(Pain Scale 4-6) Hydromorphone HCl (Hydromorphone Hcl 4 Mg Tablet) 4 mg PO Q3H PRN PRN Reason: Pain, Severe (Pain Scale 7-10) Lisinopril (Lisinopril 5 Mg Tablet) 5 mg PO BEDTIME [facility], [facility]; Protocol Last Admin: 12/16/23 20:06 Dose: 5 mg Documented By: PRESLEY Magnesium Hydroxide (Milk Of Magnesia 30 Ml Oral.Susp) 30 ml PO DAILY PRN PRN Reason: Constipation Melatonin (Melatonin 3 Mg Tablet) 6 mg PO BEDTIME PRN PRN Reason: Insomnia Last Admin: 12/16/23 21:55 Dose: 6 mg Documented By: PRESLEY Multivitamins/Vitamin C (Multivitamin Tablet) 1 tab PO DAILY [facility], [facility] Last Admin: 12/17/23 07:58 Dose: 1 tab Documented By: SUSY Patient Own (Zyrtec (10 Mg)) 1 each PO DAILY [facility], [facility] Last Admin: 12/17/23 07:57 Dose: 1 each Documented By: SUSY Ondansetron HCl (Ondansetron Hcl 4 Mg/2 Ml Vial) 4 mg IVPUSH Q8H PRN PRN Reason: Nausea and Vomiting Oxycodone HCl (Oxycodone Hcl Er 10 Mg Tab.Er.12h) 10 mg PO BID [facility], [facility]1983 Last Admin: 12/17/23 07:57 Dose: 10 mg Documented By: SUSY Oxycodone HCl (Oxycodone Hcl Immed Release 5 Mg Tablet) 5 mg PO Q4H PRN PRN Reason: Pain, Moderate(Pain Scale 4-6) Last Admin: 12/17/23 06:30 Dose: 5 mg Documented By: PRESLEY Polyethylene Glycol (Polyethylene Glycol 3350 17 Gm Powd.Pack) 17 gm PO DAILY [facility], [facility]1983 Last Admin: 12/17/23 07:56 Dose: Not Given Documented By: SUSY Non-Admin Reason: Patient Refused Sodium Chloride (0.9 % Sodium Chloride Flush 3 Ml Syringe) 3 ml IVFLUSH QSHIFT [facility], [facility]1983 Last Admin: 12/17/23 07:58 Dose: 3 ml Documented By: SUSY Sodium Chloride (0.9 % Sodium Chloride Flush 3 Ml Syringe) 3 ml IVFLUSH QSHIFT [facility], [facility] Last Admin: 12/17/23 07:51 Dose: Not Given Documented By: SUSY Non-Admin Reason: Duplicate Order Vitamin D (Cholecalciferol (Vitamin D3) 25 Mcg Tablet) 50 mcg PO DAILY [facility], [facility]1983 Last Admin: 12/17/23 07:58 Dose: 50 mcg Documented By: SUSY Labs 12/16/23 05:38 12/16/23 05:38 Assessment and Plan (1) Closed intertrochanteric fracture: Status: Acute Plan 73F PMH htn, asthma, dcis, osteoporosis, presented with left hip pain after mechanical fall found to have left intertrochanteric femur fracture Acute left intertrochanteric femur fracture Postop day 3 Aspirin b.i.d. for DVT prophylaxis PT - recommending STR Continue oxycodone and flexeril to 10mg tid Complicated by acute blood loss and inflammatory anemia No need for transfusion at this point Hypertension Lisinopril Mild intermittent asthma Stable Seasonal allergies Zyrtec Full code reason for continued hospitalization: dispo planning Quality Stroke Does the patient have a stroke diagnosis?: No VTE Prior VTE?: No VTE Risk Level:: Medical - moderate - high VTE Device Contraindication: N/A - Device Ordered VTE Drug Contraindication: Treatment Not Indicated
[2023-12-17] MEDS: lisinopriL 5 MG TABLET PO (20:12)
[2023-12-17] MEDS: Melatonin 3 MG TABLET 6 MG PO (20:14)
[2023-12-18] MEDS: Acetaminophen 325 MG TABLET 650 MG PO ×3 (01:58→13:34)
[2023-12-18] MEDS: Cyclobenzaprine HCl 10 MG TABLET PO ×2 (02:00→10:25)
[2023-12-18] MEDS: oxyCODONE HCl Immed Release 5 MG TABLET PO ×3 (02:00→13:34)
[2023-12-18 02:04] VITALS: BP 109/54; PULSE 82; RESP 18; TEMP 36.2; O2SAT 98
[2023-12-18 07:44] VITALS: BP 117/57; PULSE 80; RESP 16; TEMP 36.2; O2SAT 100
[2023-12-18] MEDS: oxyCODONE HCl ER 10 MG TAB.ER.12H PO (08:23)
[2023-12-18] MEDS: Cholecalciferol (Vitamin D3) 25 MCG TABLET 50 MCG PO (08:23)
[2023-12-18] MEDS: Multivitamin TABLET 1 TAB PO (08:23)
[2023-12-18] MEDS: Docusate Sodium 100 MG CAPSULE PO (08:23)
[2023-12-18] MEDS: Aspirin 325 MG TABLET PO (08:23)
[2023-12-18] MEDS: 0.9 % Sodium Chloride Flush 3 ML SYRINGE IVFLUSH (08:25)
[2023-12-18] MEDS: Fluticasone Propionate 250 MCG BLST.W.DEV 1 PUFF INHALE (08:41)
[2023-12-18] MEDS: Albuterol/Iprat 2.5/0.5MG 3 ML AMPUL.NEB INHALE (08:41)
[2023-12-18 08:44] VITALS: PULSE 81; RESP 16; O2SAT 100
--- NOTE | 2023-12-18 10:15 | P.PNIM_ITS ---
Subjective Subjective Date of Service: 12/18/23 Interval History: pain decently controlled, ambulating, successful voiding trial Physical Exam 2 Vital Signs: Vital Signs: Last Vital Signs Temp 97.1 F 12/18/23 07:44 Pulse 81 12/18/23 08:44 Resp 16 12/18/23 08:44 BP 117/57 L 12/18/23 07:44 Pulse Ox 100 12/18/23 07:44 O2 Del Method Room Air 12/18/23 07:44 O2 Flow Rate 6 12/14/23 17:59 BMI result Body Mass Index 25.7 Extrem: Other: Left lower extremity examination shows that the surgical dressing is clean, dry and intact, normal sensation to light touch, good capillary refill Objective Data Active Medications Acetaminophen (Acetaminophen 325 Mg Tablet) 650 mg PO Q4H PRN PRN Reason: Pain, Mild (Pain Scale 1-3), fever or headache Last Admin: 12/18/23 08:23 Dose: 650 mg Documented By: SUSY Albuterol/Ipratropium (Albuterol/Iprat 2.5/0.5mg 3 Ml Ampul.Neb) 3 ml INHALE BID [facility] Last Admin: 12/18/23 08:41 Dose: 3 ml Documented By: MARTHA Aspirin (Aspirin 325 Mg Tablet) 325 mg PO BID [facility] Last Admin: 12/18/23 08:23 Dose: 325 mg Documented By: SUSY Benzonatate (Benzonatate 100 Mg Capsule) 100 mg PO TID PRN PRN Reason: Cough Calcium Carbonate (Calcium Carbonate 750 Mg Tab.Chew) 750 mg PO Q4H PRN PRN Reason: Heartburn Cyclobenzaprine HCl (Cyclobenzaprine Hcl 10 Mg Tablet) 10 mg PO TID PRN PRN Reason: Muscle Spasm Last Admin: 12/18/23 02:00 Dose: 10 mg Documented By: DANNA Docusate Sodium (Docusate Sodium 100 Mg Capsule) 100 mg PO BID [facility] Last Admin: 12/18/23 08:23 Dose: 100 mg Documented By: SUSY Fluticasone Propionate (Fluticasone Propionate 250 Mcg Blst.W.Dev) 1 puff INHALE RBID [facility] Last Admin: 12/18/23 08:41 Dose: 1 puff Documented By: MARTHA Hydromorphone HCl (Hydromorphone Hcl 2 Mg Tablet) 2 mg PO Q3H PRN PRN Reason: Pain, Moderate(Pain Scale 4-6) Hydromorphone HCl (Hydromorphone Hcl 4 Mg Tablet) 4 mg PO Q3H PRN PRN Reason: Pain, Severe (Pain Scale 7-10) Lisinopril (Lisinopril 5 Mg Tablet) 5 mg PO BEDTIME [facility]; Protocol Last Admin: 12/17/23 20:12 Dose: 5 mg Documented By: DANNA Magnesium Hydroxide (Milk Of Magnesia 30 Ml Oral.Susp) 30 ml PO DAILY PRN PRN Reason: Constipation Melatonin (Melatonin 3 Mg Tablet) 6 mg PO BEDTIME PRN PRN Reason: Insomnia Last Admin: 12/17/23 20:14 Dose: 6 mg Documented By: DANNA Multivitamins/Vitamin C (Multivitamin Tablet) 1 tab PO DAILY [facility] Last Admin: 12/18/23 08:23 Dose: 1 tab Documented By: SUSY Patient Own (Zyrtec (10 Mg)) 1 each PO DAILY [facility] Last Admin: 12/18/23 08:22 Dose: 1 each Documented By: SUSY Ondansetron HCl (Ondansetron Hcl 4 Mg/2 Ml Vial) 4 mg IVPUSH Q8H PRN PRN Reason: Nausea and Vomiting Oxycodone HCl (Oxycodone Hcl Er 10 Mg Tab.Er.12h) 10 mg PO BID [facility] Last Admin: 12/18/23 08:23 Dose: 10 mg Documented By: SUSY Oxycodone HCl (Oxycodone Hcl Immed Release 5 Mg Tablet) 5 mg PO Q4H PRN PRN Reason: Pain, Moderate(Pain Scale 4-6) Last Admin: 12/18/23 08:23 Dose: 5 mg Documented By: SUSY Polyethylene Glycol (Polyethylene Glycol 3350 17 Gm Powd.Pack) 17 gm PO DAILY [facility] Last Admin: 12/18/23 07:07 Dose: Not Given Documented By: SUSY Non-Admin Reason: Patient Refused Sodium Chloride (0.9 % Sodium Chloride Flush 3 Ml Syringe) 3 ml IVFLUSH QSHIFT [facility] Last Admin: 12/18/23 08:25 Dose: 3 ml Documented By: SUSY Vitamin D (Cholecalciferol (Vitamin D3) 25 Mcg Tablet) 50 mcg PO DAILY [facility]IV[facility] Last Admin: 12/18/23 08:23 Dose: 50 mcg Documented By: SUSY Labs 12/16/23 05:38 12/16/23 05:38 Assessment and Plan (1) Closed intertrochanteric fracture: Status: Acute Plan 73F PMH htn, asthma, dcis, osteoporosis, presented with left hip pain after mechanical fall found to have left intertrochanteric femur fracture Acute left intertrochanteric femur fracture Postop day 4 Aspirin b.i.d. for DVT prophylaxis PT - recommending STR Continue oxycodone and flexeril to 10mg tid Complicated by acute blood loss and inflammatory anemia No need for transfusion at this point Hypertension Lisinopril Mild intermittent asthma Stable Seasonal allergies Zyrtec Full code reason for continued hospitalization: dispo planning Quality Stroke Does the patient have a stroke diagnosis?: No VTE Prior VTE?: No VTE Risk Level:: Medical - moderate - high VTE Device Contraindication: N/A - Device Ordered VTE Drug Contraindication: Treatment Not Indicated
--- NOTE | 2023-12-18 11:29 | P.DS_ITS ---
DS: Providers Provider Date of Service: 12/18/23 Date of admission: 12/14/23 12:19 Date of discharge: 12/18/23 Primary care physician: Yoel Mattson MD DS: Diagnosis Discharge Diagnosis (1) Closed intertrochanteric fracture: Status: Acute DS: Summary Hospital Course Hospital Course: from initial hpi: 73-year-old female with a PMH significant for?HTN, asthma, DCIS, and osteoporosis on Prolia who presents to the ED with?left hip pain after me chanical fall at home. Patient reports that she was at home with the family moving furniture in the basement when she tripped and fell, landing on her left hip. Was unable to move or tolerate weight-bearing due to pain. Denies head strike or LOC. Denies headache, acute vision changes, lightheadedness, or dizziness. No numbness or tingling in extremities. No back pain. Denies chest pain/pressure, palpitations. No SOB or difficulty breathing. Patient is not on blood thinners. Of note, pt is the mother of Rogelio Guerra (RN on [facility]) who would like to be notified of pt's progress, phone [phone]. In the ED pt was hypertensive up to 168/83, vitals otherwise WNL Labs were significant for sodium 134, otherwise grossly unremarkable and around baseline for patient. CXR showed no acute cardiopulmonary findings or displaced osseous fractures. X-ray of hip and pelvis showed comminuted, displaced, and impacted left intertrochanteric femoral fracture. Pt will be admitted to the hospital for treatment of left hip fracture. hospital course: Patient was admitted for acute left intertrochanteric femur fracture. Post operative. Was unremarkable. Patient was put on aspirin b.i.d. for DVT prophylaxis to continue for 6 weeks. Pain was controlled with OxyContin and oxycodone and Flexeril. Was seen by physical therapy who recommended short-term rehab. Course was complicated by acute blood loss and inflammatory anemia, however, patient did not require transfusion. For hypertension was continued on lisinopril. For mild intermittent asthma was stable. For seasonal allergies continued on Zyrtec. Time Attestation Discharge Coordination Time (in mins): 32 Quality: Safe Use of Opioids Does Pt have an Active Cancer Diagnosis on the Problem List?: No Quality: Stroke Does the patient have a stroke diagnosis?: No Physical Exam Vital Signs: Vital Signs: Last Vital Signs Temp 97.1 F 12/18/23 07:44 Pulse 81 12/18/23 08:44 Resp 16 12/18/23 08:44 BP 117/57 L 12/18/23 07:44 Pulse Ox 100 12/18/23 07:44 O2 Del Method Room Air 12/18/23 07:44 O2 Flow Rate 6 12/14/23 17:59 BMI result Body Mass Index 25.7 Extrem: Other: Left lower extremity examination shows that the surgical dressing is clean, dry and intact, normal sensation to light touch, good capillary refill Discharge Plan Discharge Anticipated Discharge Date/Time: 12/18/23 11:26 Patient Disposition: Xfer [facility] Discharge Diagnosis: hip fracture Referrals: Yoel Mattson MD [Primary Care Provider] - 1 Week Jean Jama MD [Physician] - 2 Weeks Discharge Medications: New cyclobenzaprine 10 mg Tablet 10 mg PO TID PRN (Reason: Muscle Spasm) Qty: 0 0RF polyethylene glycol 3350 17 gram Powder In Packet 17 g PO DAILY Qty: 0 0RF aspirin 325 mg Tablet 325 mg PO BID Qty: 0 0RF docusate sodium 100 mg Capsule 100 mg PO BID Qty: 0 0RF oxycodone 5 mg Tablet 5 mg PO Q4H PRN (Reason: Pain, Moderate(Pain Scale 4-6)) Qty: 10 0RF Rx Instructions: Partial Fill upon patient request. oxycodone [OxyContin] 10 mg Tablet,Oral Only,Ext.Rel.12 Hr 10 mg PO BID Qty: 10 0RF Rx Instructions: Partial Fill upon patient request. Continued multivitamin Tablet 1 tab PO DAILY cetirizine 10 mg Tablet 10 mg PO DAILY lisinopril 5 mg tablet 5 mg PO BEDTIME turmeric root extract 500 mg Capsule 1,000 mg PO DAILY fluticasone propionate 220 mcg/actuation HFA aerosol inhaler 1 puff inhalation BID Combivent Respimat 20-100 mcg/actuation mist 2 puff inhalation BID acetaminophen [Tylenol Arthritis Pain] 650 mg Tablet Extended Release 1,300 mg PO BID vitamin E 268 mg (400 unit) Capsule 268 mg PO DAILY Osteo Bi-Flex Triple Strength 750 mg-644 mg- 30 mg-1 mg Tablet 2 tab PO DAILY naproxen sodium 220 mg Tablet 220 mg PO BID PRN (Reason: Pain) potassium iodide 65 mg tablet 0.22 mg PO DAILY cholecalciferol (vitamin D3) 50 mcg (2,000 unit) capsule 50 mcg PO DAILY flaxseed oil 1,000 mg capsule 1,000 mg PO DAILY Rx Instructions: administer with a meal Discharge Orders: Discharge Order (Routine); Ordered 12/18/23 Ordered By: Severiano Moreira Diet: Advance to usual diet Activity on Discharge: As tolerated Stand Alone Forms: Patient Portal Discharge page Print Language: Italian Care Plan Goals: reocvery Health Concerns: hip fracture Plan of Treatment: Gait training, strengthening, ADLs--TTWB with walker dvt ppx x6 weeks Keep dressing clean,dry and intact-no showering or tub baths Follow up with Orthopedics in 2 weeks Assessment: see above
[2023-12-18 14:00] VITALS: O2SAT 100
--- NOTE | 2023-12-18 15:07 | MHC.CM.PN ---
IMT 12/18/23 Patient discharged to [facility] for STR. Transport via BLS, cook pickled meat time 5pm. An early dinner has been ordered for the patient.
[2023-12-18 16:39] VITALS: BP 115/56; PULSE 88; RESP 18; TEMP 36.6; O2SAT 98
== END 2023-12-18 17:02 | disposition skilled nursing facility (03) | DRG 481 ==
LOC: HO.ED 12:01 → HO.EDOVER 12:28 → HO.S3 14:01
PROVIDERS: Nurse Practitioner Family; Orthopaedic Surgery; Admitting Provider Student in an Organized Health Care Education/Training Program; Emergency Provider Emergency Medicine; PCP Internal Medicine; Visit Provider Internal Medicine
PROC: 0QS706Z Reposition Left Upper Femur with Intramedullary Internal Fixation Device, Open Approach (ICD-10-PCS; principal; 2023-12-14 15:00)
DX: S72.142A Displaced intertrochanteric fracture of left femur, initial encounter for closed fracture (principal); D62 Acute posthemorrhagic anemia; W19.XXXA Unspecified fall, initial encounter; I10 Essential (primary) hypertension; J45.20 Mild intermittent asthma, uncomplicated; M81.0 Age-related osteoporosis without current pathological fracture; J30.2 Other seasonal allergic rhinitis; Z91.040 Latex allergy status; Z79.51 Long term (current) use of inhaled steroids; Z79.620 Long term (current) use of immunosuppressive biologic; Z79.899 Other long term (current) drug therapy
CPT/HCPCS: 36415; 71045; 73502; 80048; 80053; 85025; 85027; 85610; 86850; 86900; 86901; 94640; 97110; 97116; 97162; 97166; 97530; 99285; C1713; C1758; J0690; J1100; J1170; J2250; J2405; J2704; J3010

== ENCOUNTER → 2023-12-14 09:50 | Outpatient (BNV) | payer MEDICARE, OTHER, SELFPAY | PROVIDERS: Emergency Provider Emergency Medicine; PCP Internal Medicine; Visit Provider Physician Assistant | DX: S72.142A Displaced intertrochanteric fracture of left femur, initial encounter for closed fracture (principal) | CPT/HCPCS: 27245; 99024; 99222; 99499 ==

== ENCOUNTER → 2023-12-14 12:19 | Outpatient (BNV) | payer MEDICARE, OTHER, SELFPAY | PROVIDERS: Admitting Provider Student in an Organized Health Care Education/Training Program; Emergency Provider Emergency Medicine; PCP Internal Medicine; Visit Provider Internal Medicine | DX: S72.142A Displaced intertrochanteric fracture of left femur, initial encounter for closed fracture (principal) | CPT/HCPCS: 99223; 99232; 99239 ==

== ENCOUNTER 2023-12-27 09:18 | Outpatient (REF) | payer MEDICARE, OTHER, SELFPAY ==
--- NOTE | ~2023-12-27 | XR_ITS ---
EXAMINATION: XR PELVIS CLINICAL INFORMATION: Pain and unspecified hip COMPARISON: Pelvis and left hip 12/14/2023 TECHNIQUE: AP view of the pelvis. FINDINGS: Interval reduction with placement of compression screw and intramedullary kelsie in the proximal left femur since the previously noted comminuted displaced and impacted left intertrochanteric femoral fracture. A cerclage wire seen about the proximal left femoral shaft. Butterfly fragment is seen medial to the left femoral neck. Sacroiliac joints and pubic symphysis are normal. A few small phleboliths are seen in the left side of the pelvis. Degenerative changes are noted in the lower lumbar spine. XR/XR pelvis 1-2V IMPRESSION: Status post ORIF left intertrochanteric femoral fracture. Electronically signed by: Gail Gordon MD 01/17/2024 01:45 PM EDT
== END 2023-12-27 09:19 | disposition home or self-care (01) ==
LOC: HO.HOSX 09:18
PROVIDERS: Visit Provider Physician Assistant
DX: M25.559 Pain in unspecified hip (principal); S72.142D Displaced intertrochanteric fracture of left femur, subsequent encounter for closed fracture with routine healing
CPT/HCPCS: 72170; 99212

== ENCOUNTER 2023-12-27 09:47 | Outpatient (AMB) | payer MEDICARE, OTHER, SELFPAY ==
--- NOTE | 2023-12-27 09:50 | A.OFFVIS_ITS ---
Intake Visit Reasons: PO - Lt hip IMN 12/14/23 Intake Note: Taryn is a 73 year old female that presents herself today for a post op appointment s/p left hip IMN 12/14/23 Patient reports she is doing well. Allergies codeine [CODEINE] Allergy (Unknown, Verified 12/14/23 09:46) PROJECTILE VOMITING latex [LATEX] Allergy (Unknown, Verified 12/14/23 09:46) RASH SEASONAL ALLERGIES Allergy (Unknown, Uncoded 12/14/23 09:46) WHEEZING, NASAL CONGESTION HPI HPI PO - Lt hip IMN 12/14/23 DR: Details: 73-year-old female who presents in the office today 13 days status post open re duction and internal fixation of left hip comminuted intertrochanteric fracture with placement of a [employer] cable and short gamma nail, which was performed on 12/14/[address] Jama.? ? While in the office today, the patient reports she is doing well. ? [facility] Medical History Arthritis of both knees Hx of skin cancer, basal cell Ductal carcinoma in situ of left breast Hypertension Asthma Surgical History History of lumpectomy of left breast (~08/01/18) History of breast biopsy (~2016) History of basal cell carcinoma (BCC) excision (~2009) History of colonoscopy History of laparoscopic appendectomy (~1996) History of sinus surgery (~1989) Family History Father History of melanoma Mother History of colon cancer Paternal Grandfather History of diabetes mellitus Maternal Grandfather History of diabetes mellitus Social History Household Members: Family Housing: House Are you a primary ambulatory care to a significant other at home: No Do you presently have visiting nurse or other home services: No Alcohol intake: current Alcohol intake frequency: holidays/special occasions only Comment: pt w/c bound Patient Tobacco Use Status: Never used Tobacco service: Yes Current occupational status: employed and retired Review of Systems Const All systems reviewed & are unremarkable except as noted in HPI and below Physical Exam Const General: cooperative, healthy appearing and no acute distress Resp Effort & Inspection: normal respiratory effort and able to speak in complete sentences Cardio Rate: regular rate Peripheral pulses: Peripheral pulses 2+ throughout GI Palpation (GI): Soft to palpation Skin Lesions: no lesions Rashes: no rashes Extrem Other: Incision site is clean, dry, and intact. Nicola are intact. No surrounding erythema or drainage. No signs of infection. Good ROM. NVI.? Assessment & Plan Assessment & Plan (1) Closed intertrochanteric fracture: Code(s): S72.143A - Displaced intertrochanteric fracture of unspecified femur, initial encounter for closed fracture Category: Medical Qualifiers: Encounter type: initial encounter Fracture alignment: displaced Laterality: left Qualified Code(s): S72.142A - Displaced intertrochanteric fracture of left femur, initial encounter for closed fracture Plan Ms. Wilner Guerra is a 73-year-old female who presents in the office today 13 days status post open reduction and internal fixation of left hip comminuted intertrochanteric fracture with placement of a [employer] cable and short gamma nail, which was performed on 12/14/[address] Jama.? ? While in the office today, the patient reports she is doing well.? ? Nicola were removed and steri-stripes were applied. The patient is going to remain toe touch weight bearing for an additional four weeks. She may progress to weight bearing once hyacinth callous is present on x-rays. Follow-up will be with Dr. Jama in four weeks with repeat x-rays, or sooner if needed. ? ? X-rays of the pelvis which were obtained while in the office today and were reviewed by me, Dulce Maria Vergara PA-C, revealed intact orthopedic hardware with routine healing.?? Orders: Orders XR pelvis 1-2V Today M25.559 - Pain in unspecified hip Patient Instructions: Scribed by Sara Chaney medical appointment scheduler, for Dulce Maria Vergara PA-C on 12/27/2023 at 9:51 am, EST.? Coding Level of Care Code Global (79375) Diagnoses Closed intertrochanteric fracture S72.142A Encounter type: initial encounter Fracture alignment: displaced Laterality: left
== END 2023-12-27 10:11 | disposition home or self-care (01) ==
PROVIDERS: PCP Internal Medicine; Visit Provider Physician Assistant
DX: S72.142A Displaced intertrochanteric fracture of left femur, initial encounter for closed fracture (principal)
CPT/HCPCS: 99024

== ENCOUNTER 2024-01-09 15:51 | Outpatient (REF) | payer MEDICARE, OTHER, SELFPAY ==
[2024-01-09 16:17] LABS: MANUAL DIFF FLAG NO
[2024-01-09 17:10] LABS: Basophils Absolute Auto 0.1 X10*3/uL (0.0-0.2); Basophils Percent Auto 1.5 % (0-2); Eosinophils Absolute Auto 0.4 X10*3/uL (0.0-0.4); Eosinophils Percent Auto 5.6 % (0-4); Hematocrit 38.2 % (37.0-47.0); Hemoglobin 12.5 g/dl (12.0-16.0); Imm Gran Abs Auto 0.03 X10*3/uL (0.00-0.03); Imm Gran Pct Auto 0.4 % (0.0-0.4); Lymphocytes Absolute Auto 1.9 X10*3/uL (1.2-4.9); Lymphocytes Percent Auto 24.1 % (20-40); Mean Corpuscular HGB Conc 32.7 g/dl (31.0-35.0); Mean Corpuscular Hemoglobin 33.2 pg (27.0-33.0); Mean Corpuscular Volume 101.3 fL (80.0-98.0); Mean Platelet Volume 10.3 fL (9.4-12.3); Monocytes Absolute Auto 0.7 X10*3/uL (0.1-1.2); Monocytes Percent Auto 9.2 % (2-11); Neutrophils Absolute Auto 4.7 x10*3/uL (2.0-8.3); Neutrophils Percent Auto 59.2 % (45-73); Platelet Count 337 X10*3/uL (160-400); Red Blood Count 3.77 X10*6/uL (4.20-5.50); Red Cell Distribution Width 13.9 % (11.0-16.0); White Blood Count 7.9 X10*3/uL (4.8-10.8)
[2024-01-09 17:42] LABS: Iron 71 mcg/dL (30-160); Percent Iron Saturation 18 % (15-50); Total Iron Binding Capacity 384 mcg/dL (228-428); Unsaturated Iron Binding 313 ug/dL
== END 2024-01-09 15:52 | disposition home or self-care (01) ==
LOC: HO.LAB 15:51
PROVIDERS: PCP Internal Medicine; Visit Provider Internal Medicine
DX: D64.9 Anemia, unspecified (principal); I10 Essential (primary) hypertension
CPT/HCPCS: 36415; 83540; 85025

== ENCOUNTER 2024-01-22 14:34 | Outpatient (REF) | payer MEDICARE, OTHER, SELFPAY | END 2024-01-22 14:35 | disposition home or self-care (01) | LOC: HO.HOSX 14:34 | PROVIDERS: Visit Provider Orthopaedic Surgery | DX: Z13.89 Encounter for screening for other disorder (principal) ==

== ENCOUNTER 2024-01-23 08:04 | Outpatient (AMB) | payer MEDICARE, OTHER, SELFPAY ==
--- NOTE | 2024-01-23 08:13 | A.OFFVIS_ITS ---
Intake Visit Reasons: PO - Lt hip IMN 12/14/23 Intake Note: Taryn is a 73 year old female that presents with complaints of mild discomfort along the lateral aspect of her left hip after undergoing placement of a short gamma nail on 12/14/2023. The patient remains toe-touch weight- bearing on her left lower extremity using a walker. She continues with her home exercise program. Allergies codeine [CODEINE] Allergy (Unknown, Verified 01/23/24 08:16) PROJECTILE VOMITING latex [LATEX] Allergy (Unknown, Verified 01/23/24 08:16) RASH SEASONAL ALLERGIES Allergy (Unknown, Uncoded 01/23/24 08:16) WHEEZING, NASAL CONGESTION Medication List - Last Reconciled 01/24/24 by Jean Jama MD acetaminophen ER (Tylenol Arthritis Pain) 1,300 mg PO BID aspirin 325 mg PO BID cetirizine 10 mg PO DAILY cholecalciferol (vitamin D3) 50 mcg PO DAILY cyclobenzaprine 10 mg PO TID PRN flaxseed oil 1,000 mg PO DAILY fluticasone propionate 220 mcg/actuation 1 puff inhalation BID [id number] 750 mg-644 mg- 30 mg-1 mg (Osteo Bi-Flex Triple Strength) 2 tabs PO DAILY ipratropium-albuterol 20-100 mcg/actuation (Combivent Respimat) 2 puffs inhalation BID lisinopril 5 mg PO BEDTIME multivitamin 1 tab PO DAILY naproxen sodium 220 mg PO BID PRN oxycodone 5 mg PO Q4H PRN oxycodone ER (OxyContin) 10 mg PO BID polyethylene glycol 3350 17 grams PO DAILY potassium iodide 0.22 mg PO DAILY turmeric root extract 1,000 mg PO DAILY vitamin E 268 mg PO DAILY PFSH Medical History Arthritis of both knees Hx of skin cancer, basal cell Ductal carcinoma in situ of left breast Hypertension Asthma Surgical History History of lumpectomy of left breast (~08/01/18) History of breast biopsy (~2016) History of basal cell carcinoma (BCC) excision (~2009) History of colonoscopy History of laparoscopic appendectomy (~1996) History of sinus surgery (~1989) Family History Father History of melanoma Mother History of colon cancer Paternal Grandfather History of diabetes mellitus Maternal Grandfather History of diabetes mellitus Social History Household Members: Family Housing: House Are you a primary vision care associate to a significant other at home: No Do you presently have visiting nurse or other home services: No Alcohol intake: current Alcohol intake frequency: holidays/special occasions only Comment: pt w/c bound Patient Tobacco Use Status: Never used Tobacco service: Yes Current occupational status: employed and retired Physical Exam Extrem Other: Left lower extremity examination shows minimal discomfort with range of motion Results Reviewed Results Reviewed: X-rays of the patient's left hip show a short gamma nail in good position with no signs of loosening, callus formation at the fracture site, no increase in fracture displacement or angulation Assessment & Plan Assessment & Plan (1) Left hip pain: Code(s): M25.552 - Pain in left hip Category: Medical Plan Ms. Wilner Guerra continues to do well after undergoing open reduction and internal fixation of her left hip intertrochanteric fracture with placement of a short gamma nail on 12/14/2023. The patient does have radiographic evidence of early bony healing. Thus, I will allow her to progress to 50% weight-bearing on her left lower extremity. If she has any significant discomfort with weight- bearing she will reduce her weight-bearing status. She can continue gentle [id number] exercises as well. She will contact me prior to her follow-up appointment in 6-8 weeks should any questions or concerns arise. Feel free to call me at any time should questions regarding her orthopedic management arise. Orders: Orders XR hip LT min 2V 01/23/24 M25.552 - Pain in left hip Medications: New oxycodone Partial Fill upon patient request. 5 mg PO Q8H PRN 30 tabs 0RF pain Changed From cyclobenzaprine 10 mg PO TID PRN 0 tabs 0RF Muscle Spasm To cyclobenzaprine 10 mg PO Q12H PRN 20 tabs 1RF Muscle Spasm Coding Level of Care Code Global (91469) Diagnoses Left hip pain M25.552
== END 2024-01-23 08:37 | disposition home or self-care (01) ==
PROVIDERS: PCP Internal Medicine; Visit Provider Orthopaedic Surgery
DX: M25.552 Pain in left hip (principal)
CPT/HCPCS: 99024

== ENCOUNTER 2024-01-23 13:46 | Outpatient (REF) | payer MEDICARE, OTHER, SELFPAY | END 2024-01-23 13:47 | disposition home or self-care (01) | LOC: HO.HOSX 13:46 | PROVIDERS: Visit Provider Orthopaedic Surgery | DX: M25.552 Pain in left hip (principal); Z98.890 Other specified postprocedural states | CPT/HCPCS: 73502; 99212 ==

== ENCOUNTER 2024-02-05 14:29 | Outpatient (AMB) | payer MEDICARE, OTHER, SELFPAY ==
--- NOTE | 2024-02-05 14:32 | MHC.OFFVIS ---
Vital Signs 02/05/24 14:46 Height 5 ft 4 in Weight 152 lb BMI 26.1 BP 178/80 H Blood Pressure Location Rt brachial Position Sitting Pulse 78 Intake Visit Reasons: yearly breast exam Intake Note: Patient is seen in office for yearly breast exam. Pt c/o:last dose of Letrozole was October and has no concerns regarding the breast mm:05/11/23 [employer] Specialist Required: No Airplane Dispatcher: Airplane Dispatcher Present Accompanied by: Self / Same As Patient Allergies codeine [CODEINE] Allergy (Unknown, Verified 02/05/24 14:42) PROJECTILE VOMITING latex [LATEX] Allergy (Unknown, Verified 02/05/24 14:42) RASH SEASONAL ALLERGIES Allergy (Unknown, Uncoded 02/05/24 14:42) WHEEZING, NASAL CONGESTION HPI Comments Details: 73-year-old female patient returning for a follow-up examination after left breast cancer and a recent low suspicion mammogram which was repeated on 11/17/2022.? She has a previous history of left breast ductal carcinoma in situ and is status post left breast lumpectomy with needle localization on 08/01/2018.? 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 She tolerated the procedure well and subsequently underwent radiation therapy completed on 10/25/2018.? She completed letrozole in 11/03/2023.? She was diagnosed with osteopenia and started on Prolia. Her mammogram dated 05/05/2022 with follow-up images of 05/11/2022 revealed calcifications in the upper-outer left breast which seemed slightly increased from the previous mammogram last year. Given her previous history of DCIS, stereotactic sampling is suggested. She underwent stereotactic guided core biopsy on 05/16/2022. This revealed benign breast tissue with microcalcifications. No atypia or malignancy was identified. Six-month follow-up mammogram of the left breast was obtained on 11/17/2022 and revealed post biopsy changes but no significant sebaceous findings in the left breast (BI-RADS 2). Follow-up mammogram on 05/11/2023 revealed no mammographic evidence of malignancy (BI-RADS 2). She reports falling while moving furniture over labor day weekend and required left hip surgery. She is still walking with a walker but is improving. She denies any new breast symptoms. [facility] Medical History Arthritis of both knees Hx of skin cancer, basal cell Ductal carcinoma in situ of left breast Hypertension Asthma Surgical History History of open reduction and internal fixation (ORIF) procedure History of lumpectomy of left breast (~08/01/18) History of breast biopsy (~2016) History of basal cell carcinoma (BCC) excision (~2009) History of colonoscopy History of laparoscopic appendectomy (~1996) History of sinus surgery (~1989) Family History Father History of melanoma Mother History of colon cancer Paternal Grandfather History of diabetes mellitus Maternal Grandfather History of diabetes mellitus Social History Household Members: Family Housing: House Are you a primary primary care sales representative to a significant other at home: No Do you presently have visiting nurse or other home services: No Alcohol intake: current Alcohol intake frequency: holidays/special occasions only Comment: pt w/c bound Patient Tobacco Use Status: Never used Tobacco service: Yes Current occupational status: employed and retired Review of Systems Const Denies chills, Denies fever(s), Denies headache(s) and Denies poor appetite ENT Denies dizziness and Denies headache(s) Card Denies chest pain, Denies rapid heart rate, Denies palpitations and Denies slow heart rate Resp Denies chest congestion, Denies cough, Denies pain on inspiration and Denies wheezing Musc Denies numbness Skin/Breast Denies breast swelling, Denies breast pain, Denies breast mass, Denies change in pigmentation, Denies erythema and Denies rash Neuro Denies dizziness, Denies headache(s) and Denies numbness Endo Denies palpitations Efraín/Lymph Denies easy bleeding, Denies easy bruising and Denies lymphadenopathy Aller/Immun Denies wheezing Physical Exam Const General: healthy appearing and well developed Nutritional Appearance: well nourished Orientation/consciousness: patient oriented x3 Limitations: no limitations HEENT Head: Yes normocephalic and Yes atraumatic Ears: hearing grossly normal bilaterally Eyes Sclerae: sclerae normal Neck Neck: Yes no lymphadenopathy, Yes trachea midline, Yes supple and Yes no JVD Chest Other: Left breast: No skin change, no nipple retraction, no nipple discharge, no palpable mass, no enlarged lymph nodes. Incision in the upper outer quadrant is clean, dry, and intact. Right breast: No skin change, no nipple retraction, no nipple discharge, no palpable mass, no enlarged lymph nodes Resp Effort & Inspection: normal respiratory effort, no cough and no respiratory distress Skin Other: Warm, dry, no rash Neuro General: patient oriented x3 Extrem General: Yes no clubbing, cyanosis or edema Assessment & Plan Assessment & Plan (1) Abnormal mammogram of left breast: Code(s): R92.8 - Other abnormal and inconclusive findings on diagnostic imaging of breast Category: Medical Plan 73-year-old female patient with a prior history of DCIS, status post left breast lumpectomy followed by radiation therapy and letrozole. She completed her letrozole in October 2023. Her most recent mammogram of 05/11/2023 revealed no mammographic evidence of malignancy (BI-RADS 2). Examination today revealed no suspicious findings in either breast with minimal postop changes remaining. I recommended follow-up examination in 1 year. She is already scheduled for her mammogram in 04/2023. Coding Level of Care Code Est Pt Level 3 (39698) Diagnoses Abnormal mammogram of left breast R92.8
[2024-02-05 14:46] VITALS: BP 178/80; PULSE 78; BMI 26.1
== END 2024-02-05 14:59 | disposition home or self-care (01) ==
PROVIDERS: PCP Internal Medicine; Visit Provider Surgery
DX: R92.8 Other abnormal and inconclusive findings on diagnostic imaging of breast (principal)
CPT/HCPCS: 99213

== ENCOUNTER → 2024-02-05 14:29 | Outpatient (BNVA) | payer MEDICARE, OTHER, SELFPAY | PROVIDERS: PCP Internal Medicine; Visit Provider Surgery | DX: R92.8 Other abnormal and inconclusive findings on diagnostic imaging of breast (principal) | CPT/HCPCS: 99212 ==

== ENCOUNTER 2024-02-27 08:34 | Outpatient (AMB) | payer MEDICARE, OTHER, SELFPAY ==
--- NOTE | 2024-02-27 08:43 | A.OFFVIS_ITS ---
Intake Visit Reasons: PO - Lt hip IMN 12/14/23 Intake Note: Taryn is a 73 year old female who presents to the office today for Lt hip IMN 12/14/23 DR. Pt states she is overall feeling well. Pt states she would like to not be able to use her walker anymore. She denies any fevers or chills. She takes Tylenol as needed for discomfort. Allergies codeine [CODEINE] Allergy (Unknown, Verified 02/27/24 08:44) PROJECTILE VOMITING latex [LATEX] Allergy (Unknown, Verified 02/27/24 08:44) RASH SEASONAL ALLERGIES Allergy (Unknown, Uncoded 02/27/24 08:44) WHEEZING, NASAL CONGESTION Medication List - Last Reconciled 02/27/24 by Jean Jama MD acetaminophen ER (Tylenol Arthritis Pain) 1,300 mg PO BID cetirizine 10 mg PO DAILY cholecalciferol (vitamin D3) 50 mcg PO DAILY cyclobenzaprine 10 mg PO Q12H PRN flaxseed oil 1,000 mg PO DAILY fluticasone propionate 220 mcg/actuation 1 puff inhalation BID uyzllpzj-vqfd-qbs1-C-randy-bosw 750 mg-644 mg- 30 mg-1 mg (Osteo Bi-Flex Triple Strength) 2 tabs PO DAILY ipratropium-albuterol 20-100 mcg/actuation (Combivent Respimat) 2 puffs inhalation BID lisinopril 5 mg PO BEDTIME multivitamin 1 tab PO DAILY naproxen sodium 220 mg PO BID PRN oxycodone 5 mg PO Q8H PRN potassium iodide 0.22 mg PO DAILY turmeric root extract 1,000 mg PO DAILY vitamin E 268 mg PO DAILY PFSH Medical History Arthritis of both knees Hx of skin cancer, basal cell Ductal carcinoma in situ of left breast Hypertension Asthma Surgical History History of open reduction and internal fixation (ORIF) procedure History of lumpectomy of left breast (~08/01/18) History of breast biopsy (~2016) History of basal cell carcinoma (BCC) excision (~2009) History of colonoscopy History of laparoscopic appendectomy (~1996) History of sinus surgery (~1989) Family History Father History of melanoma Mother History of colon cancer Paternal Grandfather History of diabetes mellitus Maternal Grandfather History of diabetes mellitus Social History Household Members: Family Housing: House Are you a primary director of patient care to a significant other at home: No Do you presently have visiting nurse or other home services: No Alcohol intake: current Alcohol intake frequency: holidays/special occasions only Comment: pt w/c bound Patient Tobacco Use Status: Never used Tobacco service: Yes Current occupational status: employed and retired Physical Exam Extrem Other: Left hip examination shows no discomfort with range of motion, minimal tenderness over her greater trochanteric bursa, no overlying skin lesions Results Reviewed Results Reviewed: X-rays of the patient's left hip taken today show a short gamma nail in good position with no signs of loosening, the reverse obliquity intertrochanteric fracture remains in good alignment, bony trabecula along the medial aspect of the fracture site, callus formation along the lateral aspect of the fracture site Assessment & Plan Assessment & Plan (1) Closed intertrochanteric fracture: Code(s): S72.143A - Displaced intertrochanteric fracture of unspecified femur, initial encounter for closed fracture Category: Medical Qualifiers: Encounter type: initial encounter Fracture alignment: displaced Laterality: left Qualified Code(s): S72.142A - Displaced intertrochanteric fracture of left femur, initial encounter for closed fracture Plan Mrs. De Souza continues to do well after undergoing open reduction and internal fixation of her left hip intertrochanteric fracture. At this point the patient continues to radiographically and clinically heal. As long as she does not have any increase in her discomfort she can continue to gradually increase her weight-bearing status. I do recommend that she continue to use the walker for the next few weeks to prevent further injuries. I will see her back in 4-6 weeks' time for repeat clinical and radiographic examination. She will contact me prior to that time should any questions or concerns arise. Orders: Orders XR hip LT min 2V Today M25.552 - Pain in left hip Coding Level of Care Code Global (08597) Diagnoses Closed intertrochanteric fracture S72.142A Encounter type: initial encounter Fracture alignment: displaced Laterality: left
== END 2024-02-27 09:24 | disposition home or self-care (01) ==
PROVIDERS: PCP Internal Medicine; Visit Provider Orthopaedic Surgery
DX: S72.142A Displaced intertrochanteric fracture of left femur, initial encounter for closed fracture (principal)
CPT/HCPCS: 99024

== ENCOUNTER 2024-02-27 09:18 | Outpatient (REF) | payer MEDICARE, OTHER, SELFPAY | END 2024-02-27 09:19 | disposition home or self-care (01) | LOC: HO.HOSX 09:18 | PROVIDERS: Visit Provider Orthopaedic Surgery | DX: M25.552 Pain in left hip (principal); S72.142A Displaced intertrochanteric fracture of left femur, initial encounter for closed fracture | CPT/HCPCS: 73502; 99212 ==

== ENCOUNTER 2024-03-26 07:31 | Outpatient (AMB) | payer MEDICARE, OTHER, SELFPAY ==
--- NOTE | 2024-03-26 07:49 | MHC.OFFVIS ---
Intake Visit Reasons: PO - Lt hip IMN 12/14/23 Intake Note: Taryn is a 73 year old female who presents with complaints of minimal discomfort along the lateral aspect of her left hip after undergoing open reduction and internal fixation of her left hip fracture on 12/14/2023. She has been weight-bearing as tolerated using a cane. She denies any fevers or chills. She does not take any medicines for discomfort. Allergies codeine [CODEINE] Allergy (Unknown, Verified 03/26/24 07:51) PROJECTILE VOMITING latex [LATEX] Allergy (Unknown, Verified 03/26/24 07:51) RASH SEASONAL ALLERGIES Allergy (Unknown, Uncoded 03/26/24 07:51) WHEEZING, NASAL CONGESTION Medication List - Last Reconciled 03/26/24 by Jean Jama MD acetaminophen ER (Tylenol Arthritis Pain) 1,300 mg PO BID cetirizine 10 mg PO DAILY cholecalciferol (vitamin D3) 50 mcg PO DAILY cyclobenzaprine 10 mg PO Q12H PRN flaxseed oil 1,000 mg PO DAILY fluticasone propionate 220 mcg/actuation 1 puff inhalation BID zjikddme-xkbt-kej4-C-randy-bosw 750 mg-644 mg- 30 mg-1 mg (Osteo Bi-Flex Triple Strength) 2 tabs PO DAILY ipratropium-albuterol 20-100 mcg/actuation (Combivent Respimat) 2 puffs inhalation BID lisinopril 5 mg PO BEDTIME multivitamin 1 tab PO DAILY naproxen sodium 220 mg PO BID PRN oxycodone 5 mg PO Q8H PRN potassium iodide 0.22 mg PO DAILY turmeric root extract 1,000 mg PO DAILY vitamin E 268 mg PO DAILY PFSH Medical History Arthritis of both knees Hx of skin cancer, basal cell Ductal carcinoma in situ of left breast Hypertension Asthma Surgical History History of open reduction and internal fixation (ORIF) procedure History of lumpectomy of left breast (~08/01/18) History of breast biopsy (~2016) History of basal cell carcinoma (BCC) excision (~2009) History of colonoscopy History of laparoscopic appendectomy (~1996) History of sinus surgery (~1989) Family History Father History of melanoma Mother History of colon cancer Paternal Grandfather History of diabetes mellitus Maternal Grandfather History of diabetes mellitus Social History Household Members: Family Housing: House Are you a primary lawn care specialist to a significant other at home: No Do you presently have visiting nurse or other home services: No Alcohol intake: current Alcohol intake frequency: holidays/special occasions only Comment: pt w/c bound Patient Tobacco Use Status: Never used Tobacco service: Yes Current occupational status: employed and retired Physical Exam Extrem Other: Left hip examination shows that the surgical incisions are well healed, no erythema, no discomfort with range of motion, no discomfort with full weight-bearing Results Reviewed Results Reviewed: X-rays of the patient's left hip taken today show a short gamma nail in good position with no signs of loosening, no acute bony abnormalities, bony trabecula crossing the fracture site along the calcar region, callus formation along the lateral aspect of the fracture Assessment & Plan Assessment & Plan (1) Left hip pain: Code(s): M25.552 - Pain in left hip Category: Medical Plan Taryn continues to do well after undergoing open reduction and internal fixation of her left hip fracture on 12/14/2023. She can continue weight-bearing as tolerated. She will contact me prior to her follow-up appointment in 2-3 months should any questions or concerns arise. Feel free to call me at any time should questions regarding her orthopedic management arise. I spent 21 minutes in reviewing the patient's records and imaging studies, seeing the patient and documenting in the medical record. Orders: Orders XR hip LT min 2V Today M25.552 - Pain in left hip Coding Level of Care Code Est Pt Level 3 (72835) Complex EM visit Add On G2211 Diagnoses Left hip pain M25.552
== END 2024-03-26 08:09 | disposition home or self-care (01) ==
PROVIDERS: PCP Internal Medicine; Visit Provider Orthopaedic Surgery
DX: M25.552 Pain in left hip (principal)
CPT/HCPCS: 99213; G2211

== ENCOUNTER 2024-03-26 09:16 | Outpatient (REF) | payer MEDICARE, OTHER, SELFPAY ==
--- NOTE | ~2024-03-26 | XR_ITS ---
EXAMINATION: XR HIP LEFT CLINICAL INFORMATION: Pain in left hip M25.552. COMPARISON: XR Left hip 02/27/2024 TECHNIQUE: Two views of the left hip. FINDINGS: Status post internal fixation of a left femoral fracture. Hardware is intact. No radiographic evidence of hardware failure. Redemonstrated callus formation around the medial fracture fragment. The femoral fracture plane remains visible laterally. No new acute fractures. No new acute fractures. SI joints and symphysis pubis intact. Degeneration in the visualized lower lumbar spine. XR/XR hip LT min 2V IMPRESSION: Status post internal fixation of a left femoral fracture. Hardware is intact. Study is assigned/presented to me for interpretation on May 02, 2024 Electronically signed by: Jorden Martinez MD 05/02/2024 01:30 PM SHREE NASSAR
== END 2024-03-26 09:17 | disposition home or self-care (01) ==
LOC: HO.HOSX 09:16
PROVIDERS: Visit Provider Orthopaedic Surgery
DX: M25.552 Pain in left hip (principal)
CPT/HCPCS: 73502; 99212

== ENCOUNTER 2024-05-12 07:59 | Outpatient (REF) | payer MEDICARE, OTHER, SELFPAY ==
--- OUTSIDE RECORDS SUMMARY | 2024-05-12 12:28 | XMS_ITS | Patient Health Record ---
Author Organization [facility] Address [address] [place] [address] Care Team Providers Care Residential Driver Name Role Phone Yoel Mattson MD Primary Care Provider UnavailRitchie Schmitt Jr Unavailable ALLERGIES Allergen (clinical drug ingredient) Drug/Non Drug Allergy documented on EMR Reaction Allergy Type Onset Date Status Codeine Phosphate vomiting Drug Allergy Active Latex latex (uncoded) rash/blisters Allergy Active REASON FOR REFERRAL No Information MEDICATIONS Medication SIG (Take, Route, Frequency, Duration) Notes Start Date End Date Status Vitamin E 400 UNIT Orally A ctive Bufferin Active Turmeric 500 MG Orally Acti ve MiraLax (colon prep) 8.3 ounce ((238) grams mixed with Gatorade or Crystal Light orally begin at 5:00 p.m. the day before the procedure for 1 day 07/21/2020 Active Combivent Active Lisinopril 5 MG Orally Acti ve Letrozole 2.5 MG Orally Act marisela Flovent HFA 220 MCG/ACT Inhalation Active Flaxseed Oil Active Potassium Iodide 220 mcg Active Senior Multivitamin Plus Active Cetirizine HCl 10 MG Orally Active Vitamin D 50 MCG (2000 UT) Orally Active Glucosamine Active Tylenol 650 mcg Acti ve IMMUNIZATIONS Vaccine Route Administration Date Status Comme nts Influenza Unknown 12/31/2019 Administered SOCIAL HISTORY Sex Assigned At : Social History Observation Description Sex Assigned At Unknown Alcohol Screen Question Answer Notes Did you have a drink containing alcohol in the p ast year? No Points 0 Interpretation Negative PROBLEMS Problem Type ICD Code Onset Dates Problem Status W/U Status Risk SNOMED Code Notes Problem Family history of colon cancer (Z80.0) Active confirmed 620259464 Problem Right lower quadrant abdominal pain (R10.31) Active confirmed 644181365 Problem Screening for colon cancer (Z12.11) Active confirmed 633664795 Problem Gastroesophageal reflux disease without esophagitis (K21.9) Active confirmed 512263023 Problem Family hx of colon cancer (Z80.0) Active confirmed 050107098 PLAN OF TREATMENT Future Test Test Name Order Date COLONOSCOPY 05/27/2015 COLONOSCOPY 07/21/2020 Insurance Providers Payer Name Payer Address Payer Phone Subscriber Number Group Number Insured Name Patient Relationship to Insured Coverage Start Date Coverage End Date MEDICARE OF [place] [address] [place] [address] [id number] ALTAGRACIA EATON Self - patient is the insured FOR LIFE [address] [place] [address] [id number] ALTAGRACIA EATON Self - patient is the insured MEDICAL (GENERAL) HISTORY Medical History History ICD Code colonoscopy 10/01/15, negative for polyps , five-year followup 10/04 mild asthma hay fever mild hypertension Ductal carcinoma in situ s/p lumpectomy, XRT, letrozole x5 years Surgical History Surgery Date(Month/Year) sinus surgery appendectomy lumpectomy, left breast
== END 2024-05-12 08:00 | disposition home or self-care (01) ==
LOC: HO.MAMMO 07:59
PROVIDERS: PCP Internal Medicine; Visit Provider Internal Medicine
DX: Z12.31 Encounter for screening mammogram for malignant neoplasm of breast (principal)
CPT/HCPCS: 77063; 77067

== ENCOUNTER → 2024-05-12 08:15 | Outpatient (BNV) | payer MEDICARE, OTHER, SELFPAY | PROVIDERS: PCP Internal Medicine; Visit Provider Internal Medicine | DX: Z12.31 Encounter for screening mammogram for malignant neoplasm of breast (principal) | CPT/HCPCS: 77063; 77067 ==

== ENCOUNTER 2024-05-27 07:45 | Outpatient (AMB) | payer MEDICARE, OTHER, SELFPAY ==
--- OUTSIDE RECORDS SUMMARY | 2024-05-27 07:47 | XMS_ITS | Patient Health Record ---
Author Organization [facility] Address [address] [place] [address] Care Team Providers Care Machine Set Up Operator Paper Goods Name Role Phone Yoel Mattson MD Primary [...] history of colon cancer (Z80.0) Active confirmed 446561154 Problem Right lower quadrant abdominal pain (R10.31) Active confirmed 420999372 Problem Screening for colon cancer (Z12.11) Active confirmed 321557798 Problem Gastroesophageal reflux disease without esophagitis (K21.9) Active confirmed 249588390 Problem Family hx of colon cancer (Z80.0) Active confirmed 326046292 PLAN OF TREATMENT Future Test Test Name Order Date COLONOSCOPY 05/27/2015 COLONOSCOPY 07/21/2020 Insurance Providers Payer Name Payer Address Payer Phone Subscriber Number Group Number Insured Name Patient Relationship to Insured Coverage Start Date Coverage End Date MEDICARE OF [place] [address] [place] [address] [id number] ALTAGRACIA EATON Self - patient is the insured FOR LIFE [address] [place] [address] [phone] [id number] ALTAGRACIA EATON Self - patient is the insured MEDICAL (GENERAL) HISTORY Medical History History ICD Code colonoscopy 10/01/15, negative for polyps , five-year followup 10/04 mild asthma hay fever mild hypertension Ductal carcinoma in situ s/p lumpectomy, XRT, letrozole x5 years Surgical History Surgery Date(Month/Year) sinus surgery appendectomy lumpectomy, left breast
[2024-05-27 07:50] VITALS: BMI 26.4
--- NOTE | 2024-05-27 07:50 | A.OFFVIS_ITS ---
Vital Signs 05/27/24 07:50 Height 5 ft 4 in Weight 154 lb BMI 26.4 Intake Visit Reasons: OV Lt hip IMN 12/14/23 Intake Note: Taryn is a 73 year old female who presents for follow up after undergoing open reduction and internal fixation of her left hip fracture on 12/14/2023. Patient reports she is doing well although there contuinues to be some soreness. Patient states pain does not worsen with activity. She does walk with a cane when she is out of her home. She takes Tylenol as needed for her discomfort. She denies any groin pain. Most of her discomfort is in both of her thigh muscles. Allergies codeine [CODEINE] Allergy (Unknown, Verified 05/27/24 07:51) PROJECTILE VOMITING latex [LATEX] Allergy (Unknown, Verified 05/27/24 07:51) RASH SEASONAL ALLERGIES Allergy (Unknown, Uncoded 05/27/24 07:51) WHEEZING, NASAL CONGESTION PFSH Medical History Arthritis of both knees Hx of skin cancer, basal cell Ductal carcinoma in situ of left breast Hypertension Asthma Surgical History History of open reduction and internal fixation (ORIF) procedure History of lumpectomy of left breast (~08/01/18) History of breast biopsy (~2016) History of basal cell carcinoma (BCC) excision (~2009) History of colonoscopy History of laparoscopic appendectomy (~1996) History of sinus surgery (~1989) Family History Father History of melanoma Mother History of colon cancer Paternal Grandfather History of diabetes mellitus Maternal Grandfather History of diabetes mellitus Social History Household Members: Family Housing: House Are you a primary client care representative to a significant other at home: No Do you presently have visiting nurse or other home services: No Alcohol intake: current Alcohol intake frequency: holidays/special occasions only Comment: pt w/c bound Patient Tobacco Use Status: Never used Tobacco service: Yes Current occupational status: employed and retired Physical Exam Vital Signs: BMI result Body Mass Index 26.4 Const Other: Well-nourished well-developed very friendly female awake alert and oriented x3 in no acute distress Extrem Other: Bilateral lower extremity examination shows good capillary refill, no skin lesions noted, normal sensation light touch Left hip examination shows that the surgical incisions are well healed, no erythema, minimal discomfort with range of motion, no crepitus with range of motion Assessment & Plan Assessment & Plan (1) Left hip pain: Code(s): M25.552 - Pain in left hip Category: Medical Plan Taryn continues to do well after undergoing open reduction and internal fixation of her left hip fracture on 12/14/2023. She will continue with her home exercise program. She will continue taking Tylenol as needed for discomfort. She will contact me prior to her follow-up appointment in 3 months should any qu estions or concerns arise. Feel free to call me at any time should questions regarding her orthopedic management arise. I spent 20 minutes in reviewing the patient's records and imaging studies, see ing the patient and documenting in the medical record. Coding Level of Care Code Est Pt Level 3 (93205) Complex EM visit Add On G2211 Diagnoses Left hip pain M25.552
== END 2024-05-27 08:14 | disposition home or self-care (01) ==
PROVIDERS: PCP Internal Medicine; Visit Provider Orthopaedic Surgery
DX: M25.552 Pain in left hip (principal); S72.143D Displaced intertrochanteric fracture of unspecified femur, subsequent encounter for closed fracture with routine healing
CPT/HCPCS: 99213; G2211

== ENCOUNTER → 2024-05-27 07:45 | Outpatient (BNVA) | payer MEDICARE, OTHER, SELFPAY | PROVIDERS: PCP Internal Medicine; Visit Provider Orthopaedic Surgery | DX: M25.552 Pain in left hip (principal) | CPT/HCPCS: 99212 ==

== ENCOUNTER 2024-08-26 07:34 | Outpatient (AMB) | payer MEDICARE, OTHER, SELFPAY ==
--- OUTSIDE RECORDS SUMMARY | 2024-08-26 07:37 | XMS_ITS | Patient Health Record ---
Author Organization [facility] Address [address] [place] [address] Care Team Providers Care Senior Licensing Manager Name Role Phone Yoel Mattson MD Primary Care Provider UnavailRitchie Schmitt Jr Unavailable [phone] Allergies Allergen (clinical drug ingredient) Drug/Non Drug Allergy documented on EMR Reaction Allergy Type Onset Date Status Codeine Phosphate vomiting Drug Allergy Active Latex latex (uncoded) rash/blisters Allergy Active Reason For Referral No Information Medications Medication SIG (Take, Route, Frequency, Duration) Notes [...] MG Orally Active Vitamin D 50 MCG (1999 [place]) Orally Active Glucosamine Active Tylenol 650 mcg Acti ve Immunizations Vaccine Route Administration Date Status Comme nts Influenza Unknown 12/31/2019 Administered Social History Alcohol Screen Question Answer Notes Did you have a drink containing alcohol in the p ast year? No Points 0 Interpretation Negative Problems Problem Type SNOMED Code ICD Code Onset Dates Problem Status W/U Status Risk Notes Problem 245449406 Gastroesophageal reflux disease without esophagitis (K21.9) Active confirmed Problem 966910488 Family history o f colon cancer (Z80.0) Active confirmed Problem 676044285 Screening for co rebel cancer (Z12.11) Active confirmed Problem 561193732 Right lower quad rant abdominal pain (R10.31) Active confirmed Problem 717163723 Family hx of col on cancer (Z80.0) Active confirmed Plan Of Treatment Future Test Test Name Order Date COLONOSCOPY 05/27/2015 COLONOSCOPY 07/21/2020 Insurance Providers Payer Name Payer Address Payer Phone Subscriber Number Group Number Insured Name Patient Relationship to Insured Coverage Start Date Coverage End Date MED[place]ARE OF [place] [address] [place] [address] [phone] [id number] ALTAGRACIA EATON Self - patient is the insured FOR LIFE [address] [place] [address] [id number] ALTAGRACIA EATON Self - patient is the insured Medical (General) History Medical History History ICD Code colonoscopy 10/01/15, negative for polyps , five-year followup 10/04 mild asthma hay fever mild hypertension Ductal carcinoma in situ s/p lumpectomy, XRT, letrozole x5 years Surgical History Surgery Date(Month/Year) sinus surgery appendectomy lumpectomy, left breast
[2024-08-26 07:44] VITALS: BMI 26.4
--- NOTE | 2024-08-26 07:44 | A.OFFVIS_ITS ---
Vital Signs 08/26/24 07:44 Height 5 ft 4 in Weight 154 lb BMI 26.4 Intake Visit Reasons: OV Lt hip IMN 12/14/23 DR-Follow up Intake Note: Taryn is a 73 year old female who presents with complaints of mild intermittent discomfort along the lateral aspect of her left hip after undergoing left hip gamma nail placement on 12/14/2023. The patient states that she rides her stationary bike 3-4 times per week. She has been outside doing yd work. She does take a cane when she goes for long walks. She takes Tylenol as needed for discomfort. She denies any fevers or chills. Allergies codeine [CODEINE] Allergy (Unknown, Verified 08/26/24 07:44) PROJECTILE VOMITING latex [LATEX] Allergy (Unknown, Verified 08/26/24 07:44) RASH SEASONAL ALLERGIES Allergy (Unknown, Uncoded 08/26/24 07:44) WHEEZING, NASAL CONGESTION Medication List - Last Reconciled 08/26/24 by Jean Jama MD acetaminophen ER (Tylenol Arthritis Pain) 1,300 mg PO BID cetirizine 10 mg PO DAILY cholecalciferol (vitamin D3) 50 mcg PO DAILY cyclobenzaprine 10 mg PO Q12H PRN flaxseed oil 1,000 mg PO DAILY fluticasone propionate 220 mcg/actuation 1 puff inhalation BID vtzbuime-yivu-jrm6-C-randy-bosw 750 mg-644 mg- 30 mg-1 mg (Osteo Bi-Flex Triple Strength) 2 tabs PO DAILY ipratropium-albuterol 20-100 mcg/actuation (Combivent Respimat) 2 puffs inhalation BID lisinopril 5 mg PO BEDTIME multivitamin 1 tab PO DAILY naproxen sodium 220 mg PO BID PRN oxycodone 5 mg PO Q8H PRN potassium iodide 0.22 mg PO DAILY turmeric root extract 1,000 mg PO DAILY vitamin E 268 mg PO DAILY PFSH Medical History Arthritis of both knees Hx of skin cancer, basal cell Ductal carcinoma in situ of left breast Hypertension Asthma Surgical History History of open reduction and internal fixation (ORIF) procedure History of lumpectomy of left breast (~08/01/18) History of breast biopsy (~2016) History of basal cell carcinoma (BCC) excision (~2009) History of colonoscopy History of laparoscopic appendectomy (~1996) History of sinus surgery (~1989) Family History Father History of melanoma Mother History of colon cancer Paternal Grandfather History of diabetes mellitus Maternal Grandfather History of diabetes mellitus Social History Household Members: Family Housing: House Are you a primary healthcare consulting manager to a significant other at home: No Do you presently have visiting nurse or other home services: No Alcohol intake: current Alcohol intake frequency: holidays/special occasions only Comment: pt w/c bound Patient Tobacco Use Status: Never used Tobacco service: Yes Current occupational status: employed and retired Physical Exam Vital Signs: BMI result Body Mass Index 26.4 Const Other: Well-nourished well-developed very friendly female awake alert and oriented x3 in no acute distress Extrem Other: Bilateral lower extremity examination shows good capillary refill, no skin lesions noted, normal sensation light touch Left hip examination shows minimal discomfort with range of motion, no crepitus with range of motion Results Reviewed Results Reviewed: X-rays of the patient's left hip taken today show bony trabecula eye crossing the calcar region of her fracture, decreased lucency along the lateral aspect of the fracture when compared to previous x-rays, no increase in fracture angulation or displacement Assessment & Plan Assessment & Plan (1) Left hip pain: Code(s): M25.552 - Pain in left hip Category: Medical Plan Ms. De Souza continues to do well after undergoing left hip gamma nail placement on 12/14/2023. She can continue activities as tolerated. The patient states that she wishes to follow up on an as-needed basis should any questions or concerns arise. I have no problem with this. Feel free to call me at any time should questions regarding her orthopedic management arise. I spent 22 minutes in reviewing the patient's records and imaging studies, seeing the patient and documenting in the medical record. Orders: Orders XR hip LT min 2V Today M25.552 - Pain in left hip Coding Level of Care Code Est Pt Level 3 (71137) Complex EM visit Add On G2211 Diagnoses Left hip pain M25.552
== END 2024-08-26 08:09 | disposition home or self-care (01) ==
LOC: HO.HOS 07:35
PROVIDERS: PCP Internal Medicine; Visit Provider Orthopaedic Surgery
DX: M25.552 Pain in left hip (principal)
CPT/HCPCS: 99213; G2211

== ENCOUNTER → 2024-08-26 07:42 | Outpatient (BNV) | payer MEDICARE, OTHER, SELFPAY | PROVIDERS: Visit Provider Radiology Diagnostic Radiology | DX: M25.552 Pain in left hip (principal) | CPT/HCPCS: 73502 ==

== ENCOUNTER 2024-08-26 08:23 | Outpatient (REF) | payer MEDICARE, OTHER, SELFPAY ==
--- NOTE | ~2024-08-26 | XR_ITS ---
CLINICAL HISTORY: M25.552 - Pain in left hip 3 view, pelvis and left hip Comparison: DX/SR - XR HIP LT MIN 2V - 03/26/24 07:43 EST DX/SR - XR HIP LT MIN 2V - 02/27/24 08:36 EST Findings: ORIF of the left subtrochanteric femur. Chronic displaced lesser trochanteric fracture, as before. Hardware is intact. No significant arthritic change. The soft tissues are unremarkable. IMPRESSION: Stable postsurgical sequelae. This document has been electronically signed by: Alyssa Henderson MD on 08/26/2024 15:59:13
--- OUTSIDE RECORDS SUMMARY | 2024-08-27 08:37 | XMS_ITS | Patient Health Record ---
Author Organization [facility] Address [address] [place] [address] Care Team Providers Care Wood Miller Name Role Phone Yoel Mattson MD Primary Care Provider UnavailRitchie Schmitt Jr Unavailable [phone] Allergies Allergen (clinical drug ingredient) Drug/Non Drug [...] Problem Status W/U Status Risk Notes Problem 464640576 Gastroesophageal reflux disease without esophagitis (K21.9) Active confirmed Problem 849086089 Family history o f colon cancer (Z80.0) Active confirmed Problem 366506213 Screening for co rebel cancer (Z12.11) Active confirmed Problem 676726936 Right lower quad rant abdominal pain (R10.31) Active confirmed Problem 921518933 Family hx of col on cancer (Z80.0) Active confirmed Plan Of Treatment Future Test Test Name Order Date COLONOSCOPY 05/27/2015 COLONOSCOPY 07/21/2020 Insurance Providers Payer Name Payer Address Payer Phone Subscriber Number Group Number Insured Name Patient Relationship to Insured Coverage Start Date Coverage End Date MED[place]ARE OF [place] [address] [place] [address] [id number] ALTAGRACIA EATON Self - patient is the insured FOR LIFE [address] [place] [address] [phone] [id number] ALTAGRACIA EATON Self - patient is the insured Medical (General) History Medical History History ICD Code colonoscopy 10/01/15, negative for polyps , five-year followup 10/04 mild asthma hay fever mild hypertension Ductal carcinoma in situ s/p lumpectomy, XRT, letrozole x5 years Surgical History Surgery Date(Month/Year) sinus surgery appendectomy lumpectomy, left breast
== END 2024-08-26 08:24 | disposition home or self-care (01) ==
LOC: HO.HOSX 08:23
PROVIDERS: Visit Provider Orthopaedic Surgery
DX: M25.552 Pain in left hip (principal)
CPT/HCPCS: 73502; 99212

== ENCOUNTER 2024-09-09 13:56 | Outpatient (AMB) | payer MEDICARE, OTHER, SELFPAY ==
--- NOTE | 2024-09-09 14:00 | MHC.PC.OV ---
Vital Signs 09/09/24 14:08 09/09/24 14:24 Height 5 ft 4 in Weight 73.028 kg BMI 27.6 BP 164/82 H 148/96 H Respiration 16 Pulse 88 Pulse Source Pulse Oximeter Temp 97.9 F Temp Source Temporal Artery Scan Pulse Oximetry (%) 99 Oxygen Delivery Method Room Air Intake Visit Reasons: Routine Clinical Coder Required: No Accompanied by: Self / Same As Patient Allergies codeine [CODEINE] Allergy (Unknown, Verified 09/09/24 14:06) PROJECTILE VOMITING latex [LATEX] Allergy (Unknown, Verified 09/09/24 14:06) RASH SEASONAL ALLERGIES Allergy (Unknown, Uncoded 09/09/24 14:06) WHEEZING, NASAL CONGESTION Medication List - Last Reconciled 09/09/24 by JENNIFER Clemons acetaminophen ER (Tylenol Arthritis Pain) 1,300 mg PO BID cetirizine 10 mg PO DAILY cholecalciferol (vitamin D3) 50 mcg PO DAILY cyclobenzaprine 10 mg PO Q12H PRN famotidine 20 mg PO BID flaxseed oil 1,000 mg PO DAILY fluticasone propionate 220 mcg/actuation 1 puff inhalation BID zllisdka-lsmv-dib8-C-randy-bosw 750 mg-644 mg- 30 mg-1 mg (Osteo Bi-Flex Triple Strength) 2 tabs PO DAILY ipratropium-albuterol 20-100 mcg/actuation (Combivent Respimat) 2 puffs inhalation BID lisinopril 20 mg PO DAILY multivitamin 1 tab PO DAILY potassium iodide 0.22 mg PO DAILY turmeric root extract 1,000 mg PO DAILY vitamin E 268 mg PO DAILY HPI HPI Comments History of Present Illness Details 73-year-old female with history of hypertension, asthma, osteopenia, and DCIS of the left breast presents to the office for management of chronic conditions and to establish care. She does have concerns over persistently elevated blood pressures. No chest pain or headaches or vision changes. Hypertension-reports compliance with lisinopril 5 mg daily. Low-sodium diet. Despite this, blood pressures have been persistently elevated dating back several years though she is asymptomatic. Asthma-no recent exacerbation. Combivent b.i.d.. DCIS left breast-s/p radiation and letrozole x5 years. Mammograms up-to-date. Following with Dr. Hart Osteoporosis-lowest T-score-1.7 in femoral neck, FRAX not performed- osteopenia with recent major fracture --> osteoporosis Last mammogram-04/2024, no evidence of malignancy Last DEXA scan- 04/2023, results as above Last colonoscopy-09/2020, 5 year follow-up advised due to family history. Dr. Mcknight ROS: General: No fevers, malaise, unintentional weight loss HEENT: No blurred vision, diplopia Cardiovascular: No chest pain, palpitations, or leg edema Respiratory: No shortness of breath, wheezing, cough Neuro: No headaches, weakness, paresthesias Skin: No rashes or lesions EXAM: Constitutional - Awake and Alert, No apparent distress Eyes - PERRLA, EOMI Cardiovascular - S1S2, RRR, minimal edema Respiratory - Normal lung expansion, Normal respiratory effort, No respiratory distress, CTA bilaterally Extremities - no calf tenderness bilaterally, no swelling Skin - Warm/Dry Neurological - Alert & oriented x3 Psychological - Appropriate affect [facility] Medical History (Updated 09/09/24 @ 14:42 by JENNIFER Clemons) Arthritis of both knees Hx of skin cancer, basal cell Ductal carcinoma in situ of left breast Hypertension Asthma Surgical History History of open reduction and internal fixation (ORIF) procedure History of lumpectomy of left breast (~08/01/18) History of breast biopsy (~2016) History of basal cell carcinoma (BCC) excision (~2009) History of colonoscopy History of laparoscopic appendectomy (~1996) History of sinus surgery (~1989) Family History Father History of melanoma Mother History of colon cancer Paternal Grandfather History of diabetes mellitus Maternal Grandfather History of diabetes mellitus Social History Household Members: Family Housing: House Are you a primary home care liaison to a significant other at home: No Do you presently have visiting nurse or other home services: No Alcohol intake: current Alcohol intake frequency: holidays/special occasions only Comment: pt w/c bound Patient Tobacco Use Status: Never used Tobacco service: Yes Current occupational status: employed and retired Questionnaire PHQ-9 Over the last 2 weeks, how often have you been bothered by any of the following problems? 1. Little interest or pleasure in doing things: not at all 2. Feeling down, depressed, or hopeless: not at all 3. Trouble falling or staying asleep, or sleeping too much: several days 4. Feeling tired or having little energy: not at all 5. Poor appetite or overeating: not at all 6. Feeling bad about yourself - or that you are a failure or have let yourself or your family down: not at all 7. Trouble concentrating on things, such as reading the newspaper or watching television: not at all 8. Moving or speaking so slowly that other people could have noticed. Or the opposite - being so fidgety or restless that you have been moving around a lot more than usual: not at all 9. Thoughts that you would be better off or of hurting yourself in some way: not at all Total score: 1 Source: Developed by Drs. Edwin Wilkerson, Tish Sheppard, Ramiro Curtis and colleagues, with an educational claudette from [employer]. Thrive Questionnaire I am a: Patient What is your living situation today?: I have a steady place to live Within the past 12 months, did the food you bought not last and you didn't have the money to get more?: Never true Within the past 12 months, did you worry whether your food would run out before you got money to buy more?: Never true Do you have trouble paying for medicines?: No Do you have trouble getting transportation to medical appointments?: No Do you have trouble paying your heating and electricity bill?: No Do you have trouble taking care of your child, family member or friend?: No Do you have trouble with day-to-day activities such as bathing, preparing meals, shopping, managing finances, etc.?: No Are you currently unemployed and looking for a job?: No Are you interested in more education?: No Please select the resources that you would like help with: None THRIVE Score: 0 NANCY-7 AMB Questionnaire NANCY-7 Feeling nervous, anxious, or on edge: 0 = Not at all Not being able to stop or control worryin = Not at all Worrying too much about different things: 0 = Not at all Trouble relaxin = Several days Being so restless that it is hard to sit still: 0 = Not at all Becoming easily annoyed or irritable: 0 = Not at all Feeling afraid as if something awful might happen: 0 = Not at all Total NANCY-7 score (0-4 normal; 5-9 mild; 10-14 moderate; 15-21 severe): 1 Source: Developed by Drs. Edwin Wilkerson, Tish Sheppard, Ramiro Curtis and colleagues, with an educational claudette from [employer]. Physical exam (Primary Care) Vital Signs: Last Vital Signs Temp 97.9 F 09/09/24 14:08 Pulse 88 09/09/24 14:08 Resp 16 09/09/24 14:08 BP 148/96 H 09/09/24 14:24 Pulse Ox 99 09/09/24 14:08 Oxygen Delivery Method Room Air 09/09/24 14:08 BMI result Body Mass Index 27.6 Tobacco/Smoking Status: Tobacco use Status Patient Tobacco Use Status Never used Tobacco 09/09/24 14:01 PHQ-9: PHQ-9 Score PHQ-9: Total score 1 09/09/24 14:47 Coding Level of Care Code New Pt Level 4 (15302) Complex EM visit Add On G2211 Diagnoses Hypertension I10 Asthma J45.909 Osteoporosis M81.0 Ductal carcinoma in situ (DCIS) of left breast D05.12 Assessment & Plan Assessment & Plan (1) Hypertension: Code(s): I10 - Essential (primary) hypertension Category: Medical Plan: Uncontrolled with BP recheck 148/96. Historically elevated. increase Lisinopril to 20mg daily. Low sodium diet. Reviewed renal fx and lytes which are stable. Follow up for bp check in 2-3 weeks. (2) Asthma: Code(s): J45.909 - Unspecified asthma, uncomplicated Category: Medical Plan: Controlled, no recent exacerbation. Combivent as ordered (3) Osteoporosis: Code(s): M81.0 - Age-related osteoporosis without current pathological fracture Category: Medical Plan: Due for DEXA, ordered. Consider fosamax pending results. Continue vit d (4) Ductal carcinoma in situ (DCIS) of left breast: Code(s): D05.12 - Intraductal carcinoma in situ of left breast Category: Medical Plan: In remission. Recent mammograms negative for malignancy. Complete hormonal therapy. Continue following with Dr. Hart. Continue with annual mammograms. Plan Follow up in 2-3 weeks for BP check Medications: New lisinopril 20 mg PO DAILY 90 tabs 1RF lisinopril 20 mg PO DAILY 90 tabs 1RF
[2024-09-09 14:08] VITALS: BP 164/82; PULSE 88; RESP 16; TEMP 36.6; O2SAT 99; BMI 27.6
--- OUTSIDE RECORDS SUMMARY | 2024-09-09 14:13 | XMS_ITS | Patient Health Record ---
Author Organization [facility] Address [address] [place] [address] Care Team Providers Care Solar Thermal Installer Name Role Phone Yoel Mattson MD Primary Care Provider UnavailRitchie Schmitt Jr Unavailable [phone] Allergies Allergen (clinical drug ingredient) Drug/Non [...] Problem Status W/U Status Risk Notes Problem 827074143 Gastroesophageal reflux disease without esophagitis (K21.9) Active confirmed Problem 029193401 Family history o f colon cancer (Z80.0) Active confirmed Problem 280787413 Screening for co rebel cancer (Z12.11) Active confirmed Problem 492983718 Right lower quad rant abdominal pain (R10.31) Active confirmed Problem 795886218 Family hx of col on cancer (Z80.0) Active confirmed Plan Of Treatment Future Test Test Name Order Date COLONOSCOPY 05/27/2015 COLONOSCOPY 07/21/2020 Insurance Providers Payer Name Payer Address Payer Phone Subscriber Number Group Number Insured Name Patient Relationship to Insured Coverage Start Date Coverage End Date [place]ARE OF [place] [address] [place] [address] [id number] ALTAGRACIA EATON Self - patient is the insured FOR LIFE [address] [place] [address] [phone] [id number] ALTAGRACIA EATON Self - patient is the insured Medical (General) History Medical History History ICD Code colonoscopy 10/01/15, negative for polyps , five-year followup 10/04 mild asthma hay fever mild hypertension Ductal carcinoma in situ s/p lumpectomy, XRT, letrozole x5 years Surgical History Surgery Date(Month/Year) sinus surgery appendectomy lumpectomy, left breast
[2024-09-09 14:24] VITALS: BP 148/96
== END 2024-09-09 14:36 | disposition home or self-care (01) ==
LOC: HO.HMCHD 13:57
PROVIDERS: PCP Physician Assistant; Visit Provider Physician Assistant
DX: I10 Essential (primary) hypertension (principal); J45.909 Unspecified asthma, uncomplicated; M81.0 Age-related osteoporosis without current pathological fracture; D05.12 Intraductal carcinoma in situ of left breast

== ENCOUNTER → 2024-09-09 13:56 | Outpatient (BNVA) | payer MEDICARE, OTHER, SELFPAY | PROVIDERS: PCP Physician Assistant; Visit Provider Physician Assistant | DX: I10 Essential (primary) hypertension (principal); J45.909 Unspecified asthma, uncomplicated; D05.12 Intraductal carcinoma in situ of left breast; M81.0 Age-related osteoporosis without current pathological fracture | CPT/HCPCS: 96127; 99202 ==

== ENCOUNTER 2024-10-01 07:42 | Outpatient (AMB) | payer MEDICARE, OTHER, SELFPAY ==
--- OUTSIDE RECORDS SUMMARY | 2024-10-01 07:44 | XMS_ITS | Patient Health Record ---
Author Organization [facility] Address [address] [place] [address] Care Team Providers Care Airplane Pilot Commercial Name Role Phone Yoel Mattson MD Primary Care Provider UnavailRitchie Schmitt Jr Unavailable Allergies Allergen (clinical drug ingredient) Drug/Non Drug [...] Problem Status W/U Status Risk Notes Problem 295467821 Gastroesophageal reflux disease without esophagitis (K21.9) Active confirmed Problem 432363272 Family history o f colon cancer (Z80.0) Active confirmed Problem 234061573 Screening for co rebel cancer (Z12.11) Active confirmed Problem 223766550 Right lower quad rant abdominal pain (R10.31) Active confirmed Problem 278071693 Family hx of col on cancer (Z80.0) Active confirmed Plan Of Treatment Future Test Test Name Order Date COLONOSCOPY 05/27/2015 COLONOSCOPY 07/21/2020 Insurance Providers Payer Name Payer Address Payer Phone Subscriber Number Group Number Insured Name Patient Relationship to Insured Coverage Start Date Coverage End Date [place]ARE OF [place] [address] [place] [address] [id number] ALTAGRACIA EATON Self - patient is the insured FOR LIFE [address] [place] [address] [id number] ALTAGRACIA EATON Self - patient is the insured Medical (General) History Medical History History ICD Code colonoscopy 10/01/15, negative for polyps , five-year followup 10/04 mild asthma hay fever mild hypertension Ductal carcinoma in situ s/p lumpectomy, XRT, letrozole x5 years Surgical History Surgery Date(Month/Year) sinus surgery appendectomy lumpectomy, left breast
--- NOTE | 2024-10-01 07:48 | MHC.PC.OV ---
Vital Signs 10/01/24 07:56 10/01/24 08:07 Height 5 ft 4 in Weight 72.575 kg BMI 27.5 BP 148/88 H 140/88 H Pulse 67 Pulse Source Pulse Oximeter Temp 98.0 F Temp Source Temporal Artery Scan Pulse Oximetry (%) 97 Oxygen Delivery Method Room Air Intake Visit Reasons: BP check Business Continuity Global Director Required: No Accompanied by: Self / Same As Patient Allergies codeine (CODEINE) Allergy (Unknown, Verified 10/01/24 07:48) PROJECTILE VOMITING latex (LATEX) Allergy (Unknown, Verified 10/01/24 07:48) RASH SEASONAL ALLERGIES Allergy (Unknown, Uncoded 10/01/24 07:48) WHEEZING, NASAL CONGESTION Medication List - Last Reconciled 10/01/24 by JENNIFER Clemons acetaminophen ER (Tylenol Arthritis Pain) 1,300 mg PO BID cetirizine 10 mg PO DAILY cholecalciferol (vitamin D3) 50 mcg PO DAILY famotidine 20 mg PO BID flaxseed oil 1,000 mg PO DAILY fluticasone propionate 220 mcg/actuation 1 puff inhalation BID uzhpazft-lfzn-[id number]-C-randy-bosw 750 mg-644 mg- 30 mg-1 mg (Osteo Bi-Flex Triple Strength) 2 tabs PO DAILY ipratropium-albuterol 20-100 mcg/actuation (Combivent Respimat) 2 puffs inhalation QID lisinopril 20 mg PO DAILY multivitamin 1 tab PO DAILY potassium iodide 0.22 mg PO DAILY turmeric root extract 1,000 mg PO DAILY vitamin E 268 mg PO DAILY HPI HPI Comments History of Present Illness Details 74-year-old female with history of hypertension, asthma, left-sided breast cancer presents to the office today for blood pressure recheck. At last visit 3 weeks ago, blood pressures were significantly elevated both initially and on recheck. She has been taking lisinopril 5 mg daily. As a result of elevated blood pressures, lisinopril was increased to 20 mg daily. Denies any adverse side effects. Does follow a low-sodium diet overall. She has been checking her blood pressures at home with SBP ranging 108-140 and diastolic typically 70s-80s. She also has had increased stress. About 6 weeks ago, her developed bacteremia secondary to suspected urinary tract infection and ultimately developed endocarditis. He has been on IV antibiotics via PICC line since. Today is supposed to be his last day of IV antibiotics, however this has pending evaluation. She has been taking care of him in the home and also has been responsible for driving him to appointments or other. She states she is managing her stress through crocheting and exercise. ROS: General: No fevers, malaise, unintentional weight loss Cardiovascular: No chest pain, palpitations, or leg edema Respiratory: No shortness of breath, wheezing, cough Neuro: No headaches, weakness, paresthesias Skin: No rashes or lesions EXAM: Constitutional - Awake and Alert, No apparent distress Eyes - PERRL Cardiovascular - S1S2, RRR, No edema Respiratory - Normal lung expansion, Normal respiratory effort, No respiratory distress, CTA bilaterally Extremities - no calf tenderness bilaterally, no swelling Skin - Warm/Dry Neurological - Alert & oriented x3 Psychological - Appropriate affect [facility] Medical History (Updated 10/01/24 @ 08:19 by JENNIFER Clemons) Arthritis of both knees Hx of skin cancer, basal cell Ductal carcinoma in situ of left breast Hypertension Asthma Surgical History (Updated 09/29/24 @ 15:52 by Rhina Howe) History of open reduction and internal fixation (ORIF) procedure History of lumpectomy of left breast (~08/01/18) History of breast biopsy (~2016) History of basal cell carcinoma (BCC) excision (~2009) History of colonoscopy (~10/05/20) History of laparoscopic appendectomy (~1996) History of sinus surgery (~1989) Family History Father History of melanoma Mother History of colon cancer Paternal Grandfather History of diabetes mellitus Maternal Grandfather History of diabetes mellitus Social History Household Members: Family Housing: House Are you a primary patient care assistant to a significant other at home: No Do you presently have visiting nurse or other home services: No Alcohol intake: current Alcohol intake frequency: holidays/special occasions only Comment: pt w/c bound Patient Tobacco Use Status: Never used Tobacco service: Yes Current occupational status: employed and retired Physical exam (Primary Care) BMI result Body Mass Index 27.5 Tobacco/Smoking Status: Tobacco use Status Patient Tobacco Use Status Never used Tobacco 10/01/24 07:49 Coding Level of Care Code Est Pt Level 3 (83784) Complex EM visit Add On G2211 Diagnoses Hypertension I10 Stress reaction F43.0 Assessment & Plan Assessment & Plan (1) Hypertension: Code(s): I10 - Essential (primary) hypertension Category: Medical Plan: Controlled with blood pressure repeat of Continue lisinopril 20 mg daily Low-sodium diet (2) Stress reaction: Code(s): F43.0 - Acute stress reaction Category: Medical Plan: Continue with healthy coping strategy. Overall, well managed Plan Follow-up in the office in 6 months with labs completed prior to visit Orders: Orders Basic Metabolic Panel Today I10 - Essential (primary) hypertension, Z13.220 - Encounter for screening for lipoid disorders Lipid Panel Today I10 - Essential (primary) hypertension, Z13.220 - Encounter for screening for lipoid disorders Medications: New fluticasone propionate 220 mcg/actuation 1 puff inhalation BID 12 grams 5RF Changed From ipratropium-albuterol 20-100 mcg/actuation (Combivent Respimat) 2 puffs inhalation BID To ipratropium-albuterol 20-100 mcg/actuation (Combivent Respimat) 2 puffs inhalation QID 4 grams 5RF Discontinued cyclobenzaprine Discontinued Reason: Doctor's Order 10 mg PO Q12H PRN 20 tabs 1RF Muscle Spasm
[2024-10-01 07:56] VITALS: BP 148/88; PULSE 67; TEMP 36.7; O2SAT 97; BMI 27.5
[2024-10-01 08:07] VITALS: BP 140/88
== END 2024-10-01 08:18 | disposition home or self-care (01) ==
LOC: HO.HMCHD 07:42
PROVIDERS: PCP Physician Assistant; Visit Provider Physician Assistant
DX: I10 Essential (primary) hypertension (principal); F43.0 Acute stress reaction

== ENCOUNTER → 2024-10-01 07:42 | Outpatient (BNVA) | payer MEDICARE, OTHER, SELFPAY | PROVIDERS: PCP Physician Assistant; Visit Provider Physician Assistant | DX: I10 Essential (primary) hypertension (principal); F43.0 Acute stress reaction; C50.912 Malignant neoplasm of unspecified site of left female breast; J45.909 Unspecified asthma, uncomplicated; Z79.899 Other long term (current) drug therapy | CPT/HCPCS: 99212 ==

== ENCOUNTER 2025-03-10 08:47 | Outpatient (AMB) | payer MEDICARE, OTHER, SELFPAY ==
--- NOTE | 2025-03-10 08:55 | MHC.OFFVIS ---
Vital Signs 03/10/25 09:06 Height 5 ft 4 in Weight 159 lb 4 oz BMI 27.3 BP 181/86 H Blood Pressure Location Lt brachial Position Sitting Pulse 80 Intake Visit Reasons: yearly breast exam Intake Note: Patient is seen in office for yearly breast exam. Pt c/o: denies any concerns mm:05/12/24 Staff Weapons Officer Required: No Accompanied by: Self / Same As Patient Allergies codeine (CODEINE) Allergy (Unknown, Verified 03/10/25 09:08) PROJECTILE VOMITING latex (LATEX) Allergy (Unknown, Verified 03/10/25 09:08) RASH SEASONAL ALLERGIES Allergy (Unknown, Uncoded 03/10/25 09:08) WHEEZING, NASAL CONGESTION Medication List - Last Reconciled 03/10/25 by Macario Silverio MD acetaminophen ER (Tylenol Arthritis Pain) 1,300 mg PO BID cetirizine 10 mg PO DAILY cholecalciferol (vitamin D3) 50 mcg PO DAILY famotidine 20 mg PO BID flaxseed oil 1,000 mg PO DAILY fluticasone propionate 220 mcg/actuation 1 puff inhalation BID kmpzrkee-lwtj-tub4-C-randy-bosw 750 mg-644 mg- 30 mg-1 mg (Osteo Bi-Flex Triple Strength) 2 tabs PO DAILY ipratropium-albuterol 20-100 mcg/actuation (Combivent Respimat) 1 puff inhalation QID lisinopril 20 mg PO DAILY multivitamin 1 tab PO DAILY potassium iodide 0.22 mg PO DAILY turmeric root extract 1,000 mg PO DAILY vitamin E 268 mg PO DAILY HPI Comments Details: 9-year-old female patient returning for a follow-up examination after left breast DCIS diagnosed in 2018. She is status post left breast lumpectomy with needle localization on 08/01/2018.? 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 She underwent radiation therapy completed on 10/25/2018 and completed 5 years of letrozole in 11/03/2023.? She was diagnosed with osteopenia and started on Prolia. Her mammogram dated 05/05/2022 with follow-up images of 05/11/2022 revealed calcifications in the upper-outer left breast which seemed slightly increased from the previous mammogram last year. Given her previous history of DCIS, a stereotactic guided core biopsy was performed on 05/16/2022 and revealed benign breast tissue with microcalcifications. No atypia or malignancy was identified. Six-month follow-up mammogram of the left breast was obtained on 11/17/2022 and revealed post biopsy changes but no significant suspicious findings in the left breast (BI-RADS 2). Her latest mammogram performed on 05/12/2024 revealed no mammographic evidence of malignancy (BI-RADS 2). Because of her dense breast tissue (category C) breast MRI was suggested. [facility] Medical History Arthritis of both knees Hx of skin cancer, basal cell Ductal carcinoma in situ of left breast Hypertension Asthma Surgical History History of open reduction and internal fixation (ORIF) procedure History of lumpectomy of left breast (~08/01/18) History of breast biopsy (~2016) History of basal cell carcinoma (BCC) excision (~2009) History of colonoscopy (~10/05/20) History of laparoscopic appendectomy (~1996) History of sinus surgery (~1989) Family History Father History of melanoma Mother History of colon cancer Paternal Grandfather History of diabetes mellitus Maternal Grandfather History of diabetes mellitus Social History Household Members: Family Housing: House Are you a primary lawn care technician to a significant other at home: No Do you presently have visiting nurse or other home services: No Alcohol intake: current Alcohol intake frequency: holidays/special occasions only Comment: pt w/c bound Patient Tobacco Use Status: Never used Tobacco service: Yes Current occupational status: employed and retired Review of Systems Const Denies chills, Denies fever(s), Denies headache(s) and Denies poor appetite ENT Denies dizziness and Denies headache(s) Card Denies chest pain, Denies rapid heart rate, Denies palpitations and Denies slow heart rate Resp Denies chest congestion, Denies cough, Denies pain on inspiration and Denies wheezing Musc Denies numbness Skin/Breast Denies breast swelling, Denies breast pain, Denies breast mass, Denies change in pigmentation, Denies erythema and Denies rash Neuro Denies dizziness, Denies headache(s) and Denies numbness Endo Denies palpitations Efraín/Lymph Denies easy bleeding, Denies easy bruising and Denies lymphadenopathy Aller/Immun Denies wheezing Physical Exam Const General: healthy appearing and well developed Nutritional Appearance: well nourished Orientation/consciousness: patient oriented x3 Limitations: no limitations HEENT Head: Yes normocephalic and Yes atraumatic Ears: hearing grossly normal bilaterally Eyes Sclerae: sclerae normal Neck Neck: Yes no lymphadenopathy, Yes trachea midline, Yes supple and Yes no JVD Chest Other: Left breast: No skin change, no nipple retraction, no nipple discharge, no palpable mass, no enlarged lymph nodes. Incision in the upper outer quadrant is clean, dry, and intact. Right breast: No skin change, no nipple retraction, no nipple discharge, no palpable mass, no enlarged lymph nodes Resp Effort & Inspection: normal respiratory effort, no cough and no respiratory distress Skin Other: Warm, dry, no rash Neuro Other: Mobility Assessment: 1. 3 meter assessment time (seconds): 6 2. Gait observations: Normal balance and gait General: patient oriented x3 Extrem General: Yes no clubbing, cyanosis or edema Assessment & Plan Assessment & Plan (1) Abnormal mammogram of left breast: Code(s): R92.8 - Other abnormal and inconclusive findings on diagnostic imaging of breast Category: Medical Plan 74-year-old female patient with a prior history of left breast DCIS status post lumpectomy followed by radiation therapy and letrozole. She completed her letrozole in October 2023. Her most recent mammogram of 05/12/2024 revealed no mammographic evidence of malignancy (BI-RADS 2). She is scheduled for her annual mammogram on 05/18/2025. We discussed adding breast MRI due to her dense breast tissue and she is willing to proceed, noting that she has orthopedic hardware in her hips. She will return for routine breast examination in 1 year. She is welcome to call sooner for any new concerns. Coding Level of Care Code Est Pt Level 3 (59180) Complex visit Add On G2211 Diagnoses Abnormal mammogram of left breast R92.8
[2025-03-10 09:06] VITALS: BP 181/86; PULSE 80; BMI 27.3
--- OUTSIDE RECORDS SUMMARY | 2025-03-10 09:11 | XMS_ITS | Clinical Summary ---
Author Organization Formerly [facility] Address [address] [place] [id number] Phone Care Team Providers Care Train Driver Name Role Phone Macario Silverio MD Primary Care Provider Social History Tobacco Use Types Packs/Day Years Used Date Smoking Tobacco: Never Assessed Education Answer Date Recorded Are you interested in more education? Not on sylvia e 08/11/2022 Are you concerned about learning? Not on file 08/11/2022 No 08/11/2022 No 08/11/2022 Digital Access Answer Date Recorded No 09/12/2022 No 09/12/2022 No 09/12/2022 Reliable internet access at home? Not on file 09/12/2022 Device with a working camera? Not on file Comments Unknown Sex and Gender Information Value Date Recorded Sex Assigned at Not on file Legal Sex Female 4:51 PM EDT Gender Identity Not on file Sexual Orientation Not on file Plan of Treatment Not on file Medical Devices Not on file Insurance MEDICARE PART A & B FOR LIFE MEDICARE SUPPLEMENT MEDICARE PART A & B FOR LIFE MEDICARE SUPPLEMENT MEDICARE PART A & B FOR LIFE MEDICARE SUPPLEMENT MEDICARE PART A & B FOR LIFE MEDICARE SUPPLEMENT MEDICARE PART A & B [employer] MEDICARE SUPPLEMENT MEDICARE PART A & B FOR LIFE MEDICARE SUPPLEMENT MEDICARE PART A & B [facility] FOR LIFE MEDICARE SUPPLEMENT MEDICARE PART A & B FOR LIFE MEDICARE SUPPLEMENT MEDICARE PART A & B FOR LIFE MEDICARE SUPPLEMENT Care Teams Train Driver Relationship Specialty Start Date End Date Macario Silverio MD [address] [place] [id number] PCP - General General Surgery 08/12/18 Additional Source Comments The information contained in this document represents components of the legal health record. It is not the complete legal health record.[facility]
== END 2025-03-10 09:09 | disposition home or self-care (01) ==
LOC: HO.HGS 08:48
PROVIDERS: PCP Internal Medicine; Visit Provider Surgery
DX: R92.8 Other abnormal and inconclusive findings on diagnostic imaging of breast (principal)
CPT/HCPCS: 99213; G2211

== ENCOUNTER → 2025-03-10 08:47 | Outpatient (BNVA) | payer MEDICARE, OTHER, SELFPAY | PROVIDERS: PCP Internal Medicine; Visit Provider Surgery | DX: R92.8 Other abnormal and inconclusive findings on diagnostic imaging of breast (principal) | CPT/HCPCS: 99212 ==

== ENCOUNTER 2025-03-17 06:10 | Outpatient (REF) | payer MEDICARE, OTHER, SELFPAY ==
--- OUTSIDE RECORDS SUMMARY | 2025-03-17 06:14 | XMS_ITS | Clinical Summary ---
Author Organization Formerly [facility] Address [address] [place] [address] Phone Care Team Providers Care Guest Experience Manager Name Role Phone Macario Silverio MD Primary Care Provider [phone] Social History Tobacco Use Types Packs/Day Years [...] file Insurance MEDICARE PART A & B Member Subscriber Plan / Payer (Ef fective 2017-Present) Name:Taryn Tompkins Member ID:[id number] Relation to Subscriber:Self Name:Taryn Tompkins Subscriber ID:[id number] Payer ID:[id number] Group ID:Not on file Type:Medicare Address: [facility] [address] [place] [address] FOR LIFE MEDICARE SUPPLEMENT MEDICARE PART A & B Member Subscriber Plan / Payer ( fective 2017-Present) Name:Taryn Tompkins Member ID:[id number] Relation to Subscriber:Self Name:Taryn Tompkins Subscriber ID:[id number] Payer ID:[id number] Group ID:Not on file Type:Medicare Address: [facility] ([facility]) [address] [place] [phone] FOR LIFE MEDICARE SUPPLEMENT MEDICARE PART A & B Member Subscriber Plan / Payer ( fective 2017-Present) Name:DarbyTaryn Cade Member ID:[id number] Relation to Subscriber:Self Name:Wilner McdermotttysonJosee maganaTaryn J Subscriber ID:[id number] Payer ID:[id number] Group ID:Not on file Type:Medicare Address: [facility] ([facility]) [address] [place] [address] FOR LIFE MEDICARE SUPPLEMENT MEDICARE PART A & B Member Subscriber Plan / Payer ( fective 2017-Present) Name:Taryn Tompkins Member ID:[id number] Relation to Subscriber:Self Name:Taryn Tompkins Subscriber ID:[id number] Payer ID:[id number] Group ID:Not on file Type:Medicare Address: [facility] ([facility]) [address] [place] [address] FOR LIFE MEDICARE SUPPLEMENT MEDICARE PART A & B Member Subscriber Plan / Payer ( fective 2017-Present) Name:Taryn Tompkins Member ID:[id number] Relation to Subscriber:Self Name:Taryn Tompkins Subscriber ID:[id number] Payer ID:[id number] Group ID:Not on file Type:Medicare Address: [facility] ([facility]) [address] [place] [phone] [employer] MEDICARE SUPPLEMENT MEDICARE PART A & B Member Subscriber Plan / Payer (Ef fective 2017-Present) Name:Taryn Tompkins Member ID:[id number] Relation to Subscriber:Self Name:Taryn Tompkins Subscriber ID:[id number] Payer ID:[id number] Group ID:Not on file Type:Medicare Address: [facility] ([facility]) [address] [place] [address] FOR LIFE MEDICARE SUPPLEMENT MEDICARE PART A & B [facility] FOR LIFE MEDICARE SUPPLEMENT MEDICARE PART A & B Member Subscriber Plan / Payer ( fective 2017-Present) Name:Taryn Tompkins Member ID:[id number] Relation to Subscriber:Self Name:Taryn Tompkins Subscriber ID:[id number] Payer ID:[id number] Group ID:Not on file Type:Medicare Address: [facility] ([facility] [address] [place] [address] FOR LIFE MEDICARE SUPPLEMENT MEDICARE PART A & B Member Subscriber Plan / Payer (Ef fective 2017-Present) Name:Wilner McdermotttysonchinoTaryn Member ID:[id number] Relation to Subscriber:Self Name:Taryn Tompkins Subscriber ID:[id number] Payer ID:[id number] Group ID:Not on file Type:Medicare Address: [facility] [address] [place] [address] FOR LIFE MEDICARE SUPPLEMENT Care Teams Guest Experience Manager Relationship Specialty Start Date End Date Macario Silverio MD [address] [place] [phone] PCP - General General Surgery 08/12/18 Additional Source Comments The information contained in this document represents components of the legal health record. It is not the complete legal health record.[facility]
[2025-03-17 07:46] LABS: Anion Gap 13 (12-20); Blood Urea Nitrogen 19 mg/dL (9-16); Calcium 10.1 mg/dL (8.4-10.2); Carbon Dioxide 25 mmol/L (22-29); Chloride 106 mmol/L (96-108); Cholesterol 220 mg/dL (<200); Estimated Glomerular Filt Rate > 60; HDL Cholesterol 90 mg/dL (>40); Potassium 4.4 mmol/L (3.3-5.1); Sodium 140 mmol/L (135-145); Triglycerides 80 mg/dL (<150)
== END 2025-03-17 06:11 | disposition home or self-care (01) ==
LOC: HO.LAB 06:10
PROVIDERS: PCP Physician Assistant; Visit Provider Physician Assistant
DX: I10 Essential (primary) hypertension (principal); Z13.220 Encounter for screening for lipoid disorders
CPT/HCPCS: 36415; 80048; 80061

== ENCOUNTER 2025-03-25 08:18 | Outpatient (AMB) | payer MEDICARE, OTHER, SELFPAY ==
--- NOTE | 2025-03-25 08:33 | A.OFFPC_ITS ---
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 Accompanied by: Self / Same As Patient Allergies codeine (CODEINE) Allergy (Unknown, Verified 03/25/25 08:34) PROJECTILE VOMITING latex (LATEX) Allergy (Unknown, Verified 03/25/25 08:34) RASH SEASONAL ALLERGIES Allergy (Unknown, Uncoded 03/25/25 08:34) WHEEZING, NASAL CONGESTION Tobacco use date assessed: 03/25/25 Fall risk assessment: No Falls in past year Last assessed Fall Risk: 03/25/25 Dental Screening Dental Screen Date: 03/25/25 Did you have a dental visit in the last 12 months?: Yes Did you have a dental problem in the last 6 months where you did not have access to dental care?: No Was dental information given to patient?: Patient has dentist HPI HPI Comments History of Present Illness Details 73-year-old female with history of hyper tension, asthma, osteoporosis, and DCIS of the left breast presents to the office for management of chronic conditions Hypertension-reports compliance with lisinopril 5 mg daily. Low-sodium diet. Despite this, blood pressures have been persistently elevated dating back several years though she is asymptomatic. Hypertension-has been checking blood pressures at home were very well-controlled with systolic pressures ranging around 114-118 and diastolic pressures in the 70s-90s. Her highest blood pressure at home 155/71 right after exercising on a bike. No headaches, vision changes, chest pains Asthma-no recent exacerbation. Combivent b.i.d.. DCIS left breast-s/p radiation and letrozole x5 years. Mammograms up-to-date. Following with Dr. Hart and general surgery Osteoporosis-lowest T-score-1.7 in femoral neck, FRAX not performed- osteopenia with recent major fracture --> osteoporosis. Weight-bearing exercise as above. Calcium and vitamin-D Concerns: Stressed for multiple reasons- is in a sick role. Overall, she feels like she is handling this well and continues to engage in her hobbies Health maintenance: Last mammogram-04/2024, no evidence of malignancy Last DEXA scan- 04/2023, results as above Last colonoscopy-09/2020, 5 year follow-up advised due to family history. Dr. Mcknight ROS: General: No fevers, malaise, unintentional weight loss HEENT: No blurred vision, diplopia Cardiovascular: No chest pain, palpitations, or leg edema Respiratory: No shortness of breath, wheezing, cough Neuro: No headaches, weakness, paresthesias Skin: No rashes or lesions EXAM: Constitutional - Awake and Alert, No apparent distress Eyes - PERRLA, EOMI Cardiovascular - S1S2, RRR, minimal edema Respiratory - Normal lung expansion, Normal respiratory effort, No respiratory distress, CTA bilaterally Extremities - no calf tenderness bilaterally, no swelling Skin - Warm/Dry Neurological - Alert & oriented x3 Psychological - Appropriate affect PFSH Medical History Arthritis of both knees Hx of skin cancer, basal cell Ductal carcinoma in situ of left breast Hypertension Asthma Surgical History History of open reduction and internal fixation (ORIF) procedure History of lumpectomy of left breast (~08/01/18) History of breast biopsy (~2016) History of basal cell carcinoma (BCC) excision (~2009) History of colonoscopy (~10/05/20) History of laparoscopic appendectomy (~1996) History of sinus surgery (~1989) Family History Father History of melanoma Mother History of colon cancer Paternal Grandfather History of diabetes mellitus Maternal Grandfather History of diabetes mellitus Social History Household Members: Family Housing: House Are you a primary pharmacist critical care to a significant other at home: No Do you presently have visiting nurse or other home services: No Alcohol intake: current Alcohol intake frequency: holidays/special occasions only Comment: pt w/c bound Patient Tobacco Use Status: Never used Tobacco e-Cigarette/Vaping Use: Never Used service: Yes Current occupational status: employed and retired Cognitive needs: No Hearing needs: No Vision needs: Yes (Rx glasses PRN) Questionnaire AUDIT C Alcohol Use Questionnaire (AUDIT-C) 2. How many drinks containing alcohol do you have on a typical day when you are drinking?: 1 or 2 3. How often do you have six or more drinks on one occasion?: Never Total Score: 0 Physical exam (Primary Care) Vital Signs: Last Vital Signs Temp 98.4 F 03/25/25 08:37 Pulse 70 03/25/25 08:37 Resp 12 03/25/25 08:37 BP 140/80 H 03/25/25 09:11 Pulse Ox 99 03/25/25 08:37 Oxygen Delivery Method Room Air 03/25/25 08:37 BMI result Body Mass Index 27.8 Tobacco/Smoking Status: Tobacco use Status Tobacco use date assessed 03/25/25 03/25/25 08:39 Patient Tobacco Use Status Never used Tobacco 03/25/25 08:39 e-Cigarette/Vaping Use Never Used 03/25/25 08:39 Coding Level of Care Code Est Pt Level 4 (04950) Add On Problem Visit Only Diagnoses Hypertension I10 Asthma J45.909 Osteoporosis M81.0 Ductal carcinoma in situ (DCIS) of left breast D05.12 Assessment & Plan Assessment & Plan (1) Hypertension: Code(s): I10 - Essential (primary) hypertension Category: Medical Plan: Uncontrolled /borderline in the office today at 140/80. 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 Continue lisinopril 20 mg daily. Continue following low-sodium diet as well as engaging in exercise. Reviewed last labs with normal renal function and electrolyte levels. (2) Asthma: Code(s): J45.909 - Unspecified asthma, uncomplicated Category: Medical Plan: Controlled, no recent exacerbation. Combivent as ordered (3) Osteoporosis: Code(s): M81.0 - Age-related osteoporosis without current pathological fracture Category: Medical Plan: Due for DEXA, ordered, but has not yet been performed. Continue calcium and vitamin-D. Consider Fosamax pending results of study (4) Ductal carcinoma in situ (DCIS) of left breast: Code(s): D05.12 - Intraductal carcinoma in situ of left breast Category: Medical Plan: In remission. Recent mammograms negative for malignancy. Complete hormonal therapy. Continue following with Dr. Hart. Continue with annual mammograms. Plan Follow-up in the office in 6 months with labs completed several days prior to visit Orders: Orders Basic Metabolic Panel 6 Months I10 - Essential (primary) hypertension, J45.909 - Unspecified asthma, uncomplicated, M81.0 - Age-related osteoporosis without current pathological fracture Lipid Panel 6 Months I10 - Essential (primary) hypertension, J45.909 - Unspecified asthma, uncomplicated, M81.0 - Age-related osteoporosis without current pathological fracture Liver Panel 6 Months I10 - Essential (primary) hypertension, J45.909 - Unspecified asthma, uncomplicated, M81.0 - Age-related osteoporosis without current pathological fracture Complete Blood Count Auto Diff 6 Months I10 - Essential (primary) hypertension, J45.909 - Unspecified asthma, uncomplicated, M81.0 - Age-related osteoporosis without current pathological fracture Vitamin D 25-OH Total 6 Months M81.0 - Age-related osteoporosis without current pathological fracture
[2025-03-25 08:37] VITALS: BP 162/90; PULSE 70; RESP 12; TEMP 36.9; O2SAT 99; BMI 27.8
[2025-03-25 09:11] VITALS: BP 140/80
[2025-03-25 12:27] VITALS: BP 118/70
== END 2025-03-25 09:18 | disposition home or self-care (01) ==
LOC: HO.HMCHD 08:19
PROVIDERS: PCP Physician Assistant; Visit Provider Physician Assistant
DX: I10 Essential (primary) hypertension (principal); J45.909 Unspecified asthma, uncomplicated; M81.0 Age-related osteoporosis without current pathological fracture; D05.12 Intraductal carcinoma in situ of left breast

== ENCOUNTER → 2025-03-25 08:18 | Outpatient (BNVA) | payer MEDICARE, OTHER, SELFPAY | PROVIDERS: PCP Physician Assistant; Visit Provider Physician Assistant | DX: I10 Essential (primary) hypertension (principal); J45.909 Unspecified asthma, uncomplicated; M81.0 Age-related osteoporosis without current pathological fracture; D05.12 Intraductal carcinoma in situ of left breast | CPT/HCPCS: 99212 ==

== ENCOUNTER 2025-03-31 08:14 | Outpatient (REF) | payer MEDICARE, OTHER, SELFPAY ==
--- NOTE | ~2025-03-31 | MR_ITS ---
EXAMINATION: MR BREAST WITHOUT AND WITH CONTRAST, BILATERAL CLINICAL INFORMATION: History of left breast intraductal carcinoma status post lumpectomy. Dense breast tissue. COMPARISON: Comparison is made with relevant prior imaging. TECHNIQUE: MR imaging of the breast was performed using T1, T2 and fat saturated techniques. Dynamic multiphase imaging was also performed after the administration of intravenous gadolinium contrast agent. Computer generated 3D reconstruction and enhancement kinetic analysis was ulitized by the radiologist in the interpretation of this examination. FINDINGS: Breast composition: Heterogeneous fibroglandular breast tissue Background parenchymal enhancement: Moderate with bilateral scattered enhancing foci LEFT BREAST: Post lumpectomy changes. No suspicious enhancing masses or areas of non mass enhancement. No axillary or internal mammary adenopathy. RIGHT BREAST: No suspicious enhancing masses or areas of non mass enhancement. No axillary or internal mammary adenopathy. Limited views of the chest and abdomen are unremarkable. MR/MR breast BI wo/w con IMPRESSION: No MR specific evidence of malignancy. ASSESSMENT: LEFT BREAST: BI-RADS 2-Benign RIGHT BREAST: BI-RADS 1-Negative RECOMMENDATIONS: Yearly screening mammography Yearly Breast MRI screening surveillance. Electronically signed by: Mariaelena Pereira DO 04/01/2025 06:15 PM [facility]
--- OUTSIDE RECORDS SUMMARY | 2025-03-31 08:29 | XMS_ITS | Patient Health Record ---
Author Organization [facility] Address [address] [place] [address] Care Team Providers Care Recycling Assistant Name Role Phone Twila (RETIRED) Yoel BO Primary Care Provide r Unavailable Ritchie Mcknight Jr Unavailable [phone] Allergies Allergen (clinical drug ingredient) Drug/Non Drug Allergy documented on EMR Reaction Allergy Type Onset Date Status Latex latex (uncoded) rash/blisters Allergy Active Codeine Phosphate vomiting Drug Allergy Active Reason For Referral No Information Medications Medication SIG (Take, Route, Frequency, Duration) Notes Start Date End Date Status Vitamin E 400 UNIT Tablet Orally Active Bufferin Active Turmeric 500 MG Capsule Orally Active MiraLax (colon prep) 8.3 ounce ((238) grams mixed with Gatorade or Crystal Light orally begin at 5:00 p.m. the day before the procedure; Duration: 1 day 07/21/2020 Active Combivent Active Lisinopril 5 MG Tablet Orally Active Letrozole 2.5 MG Tablet Orally Active Flovent HFA 220 MCG/ACT Aerosol Inhalation Active Flaxseed Oil Active Potassium Iodide 220 mcg Active Senior Multivitamin Plus Active Cetirizine HCl 10 MG Tablet Orally Active Vitamin D 50 MCG (2000 UT) Tablet Orally Active Glucosamine Active Tylenol 650 mcg extended release Active Immunizations Vaccine Route Administration Date Status Comme nts Influenza Unknown 12/31/2019 Administered Social History Social History Drugs/Alcohol: Social Info Question Answer Notes Alcohol Screen Did you have a drink containing alcohol in the past year? No Points 0 Interpretation Negative Additional Details Category Social Info Options Details Miscellaneous: Marital status: Occupation: retired Problems Problem Type SNOMED Code ICD Code Onset Dates Problem Status W/U Status Risk Notes Problem Gastroesophageal reflux disease without esophagitis (641639985) Gastroesophageal reflux disease without esophagitis (K21.9) Active confirmed Problem Family History of Cancer of Colon (Situation) (154284488) Family history of colon cancer (Z80.0) Active confirmed Problem Screening for colon cancer (004922230) Screening for colon cancer (Z12.11) Active confirmed Problem Right lower quadrant pain (988305443) Right lower quadrant abdominal pain (R10.31) Active confirmed Problem Family history of malignant neoplasm of gastrointestinal tract (014830358) Family hx of colon cancer (Z80.0) Active confirmed Plan Of Treatment Future Test Test Name Order Date COLONOSCOPY 05/27/2015 COLONOSCOPY 07/21/2020 Insurance Providers Payer Name Payer Address Payer Phone Subscriber Number Group Number Insured Name Patient Relationship to Insured Coverage Start Date Coverage End Date MEDICARE OF [place] [address] [place] [address] [id number] ALTAGRACIA EATON Self - patient is the insured FOR [employer] [address] [place] [address] [id number] ALTAGRACIA EATON Self - patient is the insured Medical (General) History Medical History History ICD Code colonoscopy 10/01/15, negative for polyps , five-year followup 10/04 mild asthma hay fever mild hypertension Ductal carcinoma in situ s/p lumpectomy, XRT, letrozole x5 years Surgical History Surgery Date(Month/Year) sinus surgery appendectomy lumpectomy, left breast
--- OUTSIDE RECORDS SUMMARY | 2025-03-31 08:29 | XMS_ITS | Clinical Summary ---
Author Organization [facility] Address [address] [place] [phone] Phone Care Team Providers Care Research Microbiologist Name Role Phone Macario Silverio MD Primary Care Provider [phone] Social History Tobacco Use Types Packs/Day Years [...] MEDICARE SUPPLEMENT MEDICARE PART A & B [employer] MEDICARE SUPPLEMENT MEDICARE PART A & B FOR LIFE MEDICARE SUPPLEMENT MEDICARE PART A & B [facility] FOR LIFE MEDICARE SUPPLEMENT MEDICARE PART A & B FOR LIFE MEDICARE SUPPLEMENT MEDICARE PART A & B FOR LIFE MEDICARE SUPPLEMENT Care Teams Research Microbiologist Relationship Specialty Start Date End Date Macario Silverio MD [address] [place] [id number] PCP - General General Surgery 08/12/18 Additional Source Comments The information contained in this document represents components of the legal health record. It is not the complete legal health record.[facility]
== END 2025-03-31 08:15 | disposition home or self-care (01) ==
LOC: HO.MRI 08:14
PROVIDERS: PCP Physician Assistant; Visit Provider Surgery
DX: D05.12 Intraductal carcinoma in situ of left breast (principal); R92.30 Dense breasts, unspecified
CPT/HCPCS: 77049; A9585; C8937

== ENCOUNTER → 2025-03-31 08:14 | Outpatient (BNV) | payer MEDICARE, OTHER, SELFPAY | PROVIDERS: PCP Physician Assistant; Visit Provider Internal Medicine | DX: D05.12 Intraductal carcinoma in situ of left breast (principal) | CPT/HCPCS: 77049 ==